=== PATIENT | female | born 1940 | race Caucasian/White ===

== ENCOUNTER → 2020-10-05 10:11 | Outpatient (BNVA) | payer MEDICARE, MEDICAID, SELFPAY | PROVIDERS: Family Provider Nurse Practitioner; PCP Nurse Practitioner; Visit Provider Nurse Practitioner | DX: R32 Unspecified urinary incontinence (principal) | CPT/HCPCS: 81003 ==

== ENCOUNTER → 2020-11-20 13:36 | Outpatient (BNVA) | payer MEDICARE, MEDICAID, SELFPAY | PROVIDERS: Family Provider Nurse Practitioner; PCP Nurse Practitioner; Visit Provider Nurse Practitioner | DX: I10 Essential (primary) hypertension (principal) | CPT/HCPCS: 80053; 80061; 84443 ==

== ENCOUNTER → 2021-01-02 09:57 | Outpatient (BNVA) | payer MEDICARE, MEDICAID, SELFPAY | PROVIDERS: Family Provider Nurse Practitioner; PCP Nurse Practitioner; Visit Provider Nurse Practitioner | DX: M17.11 Unilateral primary osteoarthritis, right knee (principal); G89.29 Other chronic pain | CPT/HCPCS: 73562; 73610 ==

== ENCOUNTER → 2021-06-12 10:49 | Outpatient (BNVA) | payer MEDICARE, MEDICAID, SELFPAY | PROVIDERS: Family Provider Nurse Practitioner; PCP Nurse Practitioner; Visit Provider Nurse Practitioner | DX: I10 Essential (primary) hypertension (principal); R73.9 Hyperglycemia, unspecified; J44.9 Chronic obstructive pulmonary disease, unspecified | CPT/HCPCS: 80053; 80061; 83036 ==

== ENCOUNTER → 2021-07-10 12:55 | Outpatient (BNVA) | payer MEDICARE, MEDICAID, SELFPAY | PROVIDERS: Family Provider Nurse Practitioner; PCP Nurse Practitioner; Visit Provider Nurse Practitioner | DX: G40.209 Localization-related (focal) (partial) symptomatic epilepsy and epileptic syndromes with complex partial seizures, not intractable, without status epilepticus (principal); E61.1 Iron deficiency; I10 Essential (primary) hypertension | CPT/HCPCS: 80053; 80156; 80201; 80299; 83540; 84443; 85025 ==

== ENCOUNTER 2021-10-01 13:28 | Outpatient (CLI) | payer MEDICARE, MEDICAID, SELFPAY ==
[2021-10-01 13:57] VITALS: BP 105/76; PULSE 60; RESP 19; TEMP 36.2; O2SAT 97
[2021-10-01 14:01] VITALS: BMI 36.6
[2021-10-01 14:17] VITALS: BP 100/62; PULSE 94; RESP 20; TEMP 36; O2SAT 94
[2021-10-01 15:18] VITALS: BP 112/60; PULSE 70; RESP 20; TEMP 35.8; O2SAT 99
== END 2021-10-01 13:29 | disposition home or self-care (01) ==
LOC: OPS 13:31
PROVIDERS: Family Provider Nurse Practitioner; PCP Nurse Practitioner; Visit Provider Nurse Practitioner
DX: U07.1 COVID-19 (principal)
CPT/HCPCS: 96365

== ENCOUNTER → 2022-02-05 12:05 | Outpatient (BNVA) | payer MEDICARE, MEDICAID, SELFPAY | PROVIDERS: Family Provider Nurse Practitioner; PCP Nurse Practitioner; Visit Provider Nurse Practitioner | DX: I10 Essential (primary) hypertension (principal); E61.1 Iron deficiency | CPT/HCPCS: 80053; 80061; 83540; 84443 ==

== ENCOUNTER → 2022-07-09 10:55 | Outpatient (BNVA) | payer MEDICARE, MEDICAID, SELFPAY | PROVIDERS: Family Provider Nurse Practitioner; PCP Nurse Practitioner; Visit Provider Nurse Practitioner | DX: G40.209 Localization-related (focal) (partial) symptomatic epilepsy and epileptic syndromes with complex partial seizures, not intractable, without status epilepticus (principal); I10 Essential (primary) hypertension | CPT/HCPCS: 80156 ==

== ENCOUNTER → 2023-01-21 08:52 | Outpatient (BNVA) | payer MEDICARE, MEDICAID, SELFPAY | PROVIDERS: Family Provider Nurse Practitioner; PCP Nurse Practitioner; Visit Provider Nurse Practitioner | DX: I10 Essential (primary) hypertension (principal); E55.9 Vitamin D deficiency, unspecified; G40.209 Localization-related (focal) (partial) symptomatic epilepsy and epileptic syndromes with complex partial seizures, not intractable, without status epilepticus | CPT/HCPCS: 80053; 80061; 80299; 82306; 82607; 84443 ==

== ENCOUNTER 2023-05-04 19:13 | Inpatient (IN) | payer MEDICARE, MEDICAID, SELFPAY ==
--- NOTE | 2023-05-04 19:17 | ED_ITS ---
HPI - Fall General: Chief Complaint: Fall Stated Complaint: FALL Time Seen by Provider: 05/04/23 19:15 History of Present Illness: 83-year-old female comes in today with injury to the right hip and knee. Patient reports about 2:00 this afternoon she was in the shower with staff at [facility] when she slipped and fell coming down on her right knee. Since then patient has had pain and discomfort mainly to the right knee. Patient is able to manipulate leg off the floor. Patient does have bilateral lower extremity swelling. Patient appears nontoxic. Patient appears in mild pain at rest. Pain is exacerbated with movement of the right lower extremity. Associated symptoms-after fall: Denies chest pain Review of Systems General: Reports: 10 or more systems reviewed and unremarkable except in HPI and below Const: Denies: fever(s) Card: Denies: chest pain Resp: Denies: dyspnea Musc: Reports: extremity pain Skin/Breast: Denies: rash PFSH ED PFSH: Medical History (Updated 05/04/23 @ 20:20 by FELIBERTO Small) Chronic constipation Complex partial epilepsy COPD mixed type COVID-19 DJD (degenerative joint disease) DNR no code (do not resuscitate) Dyslipidemia Essential (primary) hypertension GERD (gastroesophageal reflux disease) Lives in assisted living facility Low serum iron Obesity, morbid, BMI 40.0-49.9 Osteoporosis Urinary incontinence in female Vitamin D deficiency Surgical History History of total hysterectomy Family History Mother Diabetes Heart disease Family/Other Diabetes Aunt Father Heart disease Social History Smoking and tobacco status: never smoked Second hand smoke exposure: No Substance/Drug Use: never Lives independently: No Housing: Assisted Living Facility Marital status: Current occupational status: retired Physical Exam Const: COMMON NORMALS: patient oriented x3 HENMT: COMMON NORMALS: atraumatic HEAD & SCALP: atraumatic Neck/C-Spine: COMMON NORMALS: full ROM CERVICAL SPINE: No Cervical spine tenderness Chest: COMMONS NORMALS: normal palpation of entire chest wall Resp: COMMON NORMALS: normal respiratory effort Cardio: COMMON NORMALS: regular rate and regular rhythm RATE: regular rate RHYTHM: regular rhythm GI: COMMON NORMALS: non-tender Back/Pelvis: COMMON NORMALS: thoracic and lumbar spine normal to inspection Extremity: RIGHT LOWER EXTREMITY: Yes knee joint (Anterior tenderness, decreased range of motion due to pain) Neuro: COMMON NORMALS: patient oriented x3 Skin: COMMON NORMALS: turgor normal GENERAL SKIN EXAM: turgor normal Course ED course: 2014, reviewed case with Dr. Sidhu, orthopedist on-call. He recommend admission to hospitalist with plan to stabilize distal femur fracture in the morning. Hospitalist will be consulted for management of chronic care. MDM - Fall Medical Decision Making 83-year-old female comes in today with injury to the right lower extremity. On exam patient has tenderness to the anterior knee, no bruising and minimal red ness. Distal pulses are intact. Patient has swelling to bilateral lower extremities. Differential diagnosis includes but not limited to fracture, contusion, sprain. X-ray of the hip noted no fractures, x-ray of the knee noted a distal femur fracture that was nondisplaced. Femur x-ray then confirmed the distal femur without any further displacement. Reviewed this with Dr. Emmanuel Sidhu, orthopedist on-call, who agreed to admit patient for repair in the morning recommending hospitalist services for management of chronic disease. Discussed with Dr. Clark, attending ER physician he agreed with plan. Dr. Tai, hospitalist was consulted and agreed to admit patient for further evaluation and treatment. 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
--- NOTE | 2023-05-04 19:22 | XRR_ITS ---
PROCEDURE INFORMATION: Exam: XR Right Hip Exam date and time: 05/04/2023 7:37 PM Age: 83 years old Clinical indication: Injury or trauma; Fall; Blunt trauma (contusions or hematomas); Right; Hip and pelvic region; Additional info: Fall injury, include pelvis TECHNIQUE: Imaging protocol: Radiologic exam of the right hip. Views: 1 view hip with pelvis when performed. COMPARISON: CR XR hip RT 2-3V wo/w pel* [id number] 07/19/2016 11:02 AM FINDINGS: Bones/joints: Mild osteoarthritis of the hips bilaterally. Right inferior pubic ramus probable healed fracture, CT could further evaluate this if there is concern for an acute refracture. Soft tissues: Unremarkable. XR/XR hip RT 2-3V wo/w pel* [id number] IMPRESSION: 1. Right inferior pubic ramus probable healed fracture, CT could further evaluate this if there is concern for an acute refracture. 2. Mild osteoarthritis of the hips bilaterally.
--- NOTE | 2023-05-04 19:22 | XRR_ITS ---
PROCEDURE INFORMATION: Exam: XR Right Knee Exam date and time: 05/04/2023 7:42 PM Age: 83 years old Clinical indication: Injury or trauma; Fall; Blunt trauma; Knee; Right; Additional info: Fall injury TECHNIQUE: Imaging protocol: Radiologic exam of the right knee. Views: 3 views. COMPARISON: CR XR femur RT min 2V* [id number] 07/19/2016 11:02 AM FINDINGS: Bones/joints: Distal femoral metadiaphyseal oblique nondisplaced fracture. Severe tricompartmental osteoarthritis of the knee. Soft tissues: Normal. XR/XR knee RT 3V* [id number] IMPRESSION: 1. Distal femoral metadiaphyseal oblique nondisplaced fracture. 2. Severe tricompartmental osteoarthritis of the knee.
[2023-05-04 19:39] VITALS: BMI 36.3
[2023-05-04] MEDS: HYDROcodone-acetaminophen 5-325 mg Tablet 1 TAB PO (19:45)
--- NOTE | 2023-05-04 19:50 | XRR_ITS ---
PROCEDURE INFORMATION: Exam: XR Right Femur Exam date and time: 05/04/2023 7:52 PM Age: 83 years old Clinical indication: Injury or trauma; Fall; Blunt trauma; Thigh or upper leg; Right; Additional info: Abnormal image TECHNIQUE: Imaging protocol: Radiologic exam of the right femur. Views: 2 views. COMPARISON: CR XR femur RT min 2V* [id number] 07/19/2016 11:02 AM FINDINGS: Bones/joints: Distal femoral metadiaphyseal oblique fracture with minimal displacement. Soft tissues: Unremarkable. XR/XR femur RT min 2V* [id number] IMPRESSION: Distal femoral metadiaphyseal oblique fracture with minimal displacement.
--- NOTE | 2023-05-04 19:57 | CTR_ITS ---
PROCEDURE INFORMATION: Exam: CT Right Lower Extremity Without Contrast, Knee Exam date and time: 05/04/2023 8:48 PM Age: 83 years old Clinical indication: Injury or trauma; Fall; Fracture, traumatic; Other: Spiral; Patella or knee; Right; Additional info: Distal femur fracture TECHNIQUE: Imaging protocol: CT of the right lower extremity without contrast was performed. Exam focused on the knee. Radiation optimization: All CT scans at this facility use at least one of these dose optimization techniques: automated exposure control; mA and/or kV adjustment per patient size (includes targeted exams where dose is matched to clinical indication); or iterative reconstruction. REPORTING DATA: Count of CT and Cardiac NM exams in prior 12 months: This patient has received 0 known CTs and 0 known cardiac nuclear medicine studies in the 12 months prior to the current study. COMPARISON: CR (LOW EXM, ) 05/04/2023 7:42 PM RADIATION DOSE METRICS: Total DLP (mGy-cm): 463.28 FINDINGS: Bones/joints: There is diffuse osteopenia. There is an oblique fracture through the distal femur without significant displacement. There is advanced osteoarthritis of the knee consisting of joint space narrowing and tricompartment osteophytosis. There is old fracture through the proximal fibula. There is a small suprapatellar effusion. Soft tissues: Normal. CT/CT knee RT wo con* [id number] IMPRESSION: 1. Oblique fracture through the distal femur without significant displacement. 2. Advanced osteoarthritis of the right knee.
--- NOTE | 2023-05-04 20:01 | XRR_ITS ---
PROCEDURE INFORMATION: Exam: XR Chest Exam date and time: 05/04/2023 8:13 PM Age: 83 years old Clinical indication: Injury or trauma; Fall; Blunt trauma (contusions or hematomas); Additional info: Fall, femur fracture TECHNIQUE: Imaging protocol: Radiologic exam of the chest. Views: 1 view. COMPARISON: CR XR chest 1V [id number] 05/10/2019 7:26 AM FINDINGS: Lungs: Unremarkable. No consolidation. Pleural spaces: Unremarkable. No pleural effusion. No pneumothorax. Heart/Mediastinum: Cardiomegaly. Bones/joints: Severe right glenohumeral joint osteoarthritis. XR/XR chest 1V portable [id number] IMPRESSION: 1. Cardiomegaly. 2. Severe right glenohumeral joint osteoarthritis.
--- NOTE | 2023-05-04 20:15 | P.CONIM_ITS ---
Providers/Reason For Consult Consulting Physician/Specialty*: Emmanuel Sidhu DO/orthopedic surgery Reason for Consult*: Right distal femur fracture Requesting Physician: Dr. Sanchez Clark Attending Physician: Ron Nguyen MD Primary Care Provider: JOSE FRANCISCO Ghosh History of Present Illness History of Present Illness Tennille James is a 83 year old female with past medical history of seizures, constipation, COPD, dyslipidemia, hypertension, GERD presented to the hospital today for complaint of a fall.? He states she has osteoarthritis of her knee and a lot of the time her knee gives out and she ends up falling.? Her last fall prior to this was 3 weeks ago and it was also mechanical in nature.? Today she says she fell in the shower.? It was a combination of soapy water under her feet and also her losing her balance due to her knee giving out.? She states that she has a walker with a seat that she uses and lives in senior assisted living facility.? In addition to the above she also has bilateral lower extremity swelling which she says is chronic for her.? She complains of mild pain at this time and is comfortable for the most part.? She does complain of pain upon movement of right lower extremity. Complains of pain mostly around the knee.? No significant clinical deformity noted. denies chest pain, shortness of breath, lightheadedness, dizziness or any other preceding symptoms like nausea or v omiting prior to the fall.? Dr. Alonso is her neurologist.? Patient denies being on any blood thinners. Orthopedics consulted and seen evaluated in the ER patient does have a distal femur fracture on right side and will be going to OR in a.m. she will be n.p.o. at midnight. Patient has a niece that her is her family that was contacted and discussed her current care. She at baseline does ambulate with a walker at the assisted living facility she does sit a lot during the day but she does ambulate with a walker. Review of Systems General: Reports: 10 or more systems reviewed and unremarkable except in HPI and below Medications/Allergies Home Medications Medication Instructions Recorded Confirmed Last Taken Type acetaminophen 160 mg chewable 160 mg PO Q4H PRN Pain 12/28/19 05/05/23 Unknown History tablet albuterol sulfate 90 mcg/actuation 1 inh inhalation Q4H PRN Shortness 12/28/19 05/05/23 Unknown History aerosol inhaler (Ventolin HFA) Of Breath amlodipine 5 mg tablet 5 mg PO DAILY 12/28/19 05/05/23 05/04/23 History aspirin 81 mg chewable tablet 81 mg PO DAILY 12/28/19 05/05/23 05/04/23 History (Ranjeet Chewable Low Dose Aspirin) bisacodyl 10 mg rectal suppository 10 mg DE DAILY PRN Constipation 12/28/19 05/05/23 Unknown History carbamazepine 200 mg tablet 200 mg PO BID 12/28/19 05/05/23 05/04/23 History chlorhexidine gluconate 0.12 % 15 ml buccal BID 12/28/19 05/05/23 05/04/23 History mouthwash dextromethorphan-guaifenesin 10 5 ml PO Q4H PRN Cough 12/28/19 05/05/23 Unknown History mg-100 mg/5 mL oral liquid (Diabetic Tussin DM) diphenhydramine HCl 25 mg capsule 25 mg PO Q6H PRN Allergy Symptoms 12/28/19 05/05/23 Unknown History (Allergy (diphenhydramine)) docusate sodium 100 mg capsule 100 mg PO BID 12/28/19 05/05/23 05/04/23 History (DOK) epinephrine 0.3 mg/0.3 mL 0.3 ml IM ONCE PRN Allergic 12/28/19 05/05/23 Unknown History injection, auto-injector (EpiPen Reaction 2-Ortega) esomeprazole magnesium 40 mg 40 mg PO DAILY 12/28/19 05/05/23 05/04/23 History capsule,delayed release ferrous sulfate 325 mg (65 mg 325 mg PO DAILY 12/28/19 05/05/23 05/04/23 History iron) tablet furosemide 20 mg tablet 20 mg PO BID 12/28/19 05/05/23 05/04/23 History losartan 50 mg tablet 50 mg PO DAILY 12/28/19 05/05/23 05/04/23 History lovastatin 20 mg tablet 20 mg PO DAILY 12/28/19 05/05/23 05/04/23 History metoprolol tartrate 50 mg tablet 50 mg PO BID 12/28/19 05/05/23 05/04/23 History multivitamin,wx-vhrd-wdyerrhn 27 1 tab PO DAILY 12/28/19 05/05/23 Unknown History mg-0.4 mg tablet (Therems-M) nitroglycerin 0.4 mg sublingual 0.4 mg sublingual Q5M PRN Chest 12/28/19 05/05/23 Unknown History tablet (Nitrostat) Pain ondansetron HCl 4 mg tablet 4 mg PO Q4H PRN Nausea 12/28/19 05/05/23 Unknown History potassium chloride 10 mEq 10 meq PO BID 12/28/19 05/05/23 05/04/23 History capsule,extended release risperidone 0.25 mg tablet 0.25 mg PO BID 12/28/19 05/05/23 05/04/23 History sennosides 8.6 mg capsule (senna) 8.6 mg PO BID 12/28/19 05/05/23 05/04/23 History topiramate 50 mg tablet 50 mg PO BID 12/28/19 05/05/23 05/05/23 History clonazepam 0.5 mg tablet (Klonopin) 0.5 mg PO BID PRN when seizure 04/01/21 05/05/23 Unknown Rx pending #10 tabs trazodone 50 mg tablet 50 mg PO .at bedtime #30 tabs 04/01/21 05/05/23 1 Day Ago Rx ~05/04/23 DME: Jaylon #1 ea 09/21/22 05/05/23 Unknown Rx lacosamide 200 mg tablet (Vimpat) 200 mg PO BID #60 tabs 01/25/23 05/05/23 05/04/23 Rx calcium carbonate 500 mg-vitamin 1 tab PO DAILY 05/04/23 05/05/23 05/04/23 History D3 5 mcg (200 unit) tablet (Oysco 500/D) arformoterol 15 mcg/2 mL solution 2 ml inhalation QAM 05/05/23 05/05/23 Unknown History for nebulization (Brovana) camphor 4.7 %-eucalyptus oil 1.2 1 applic topical BID PRN Cough 05/05/23 05/05/23 Unknown History %-menthol 2.6 % topical ointment (Vicks Vaporub) ipratropium 0.5 mg-albuterol 3 mg 3 ml inhalation Q6H PRN Shortness 05/05/23 05/05/23 Unknown History (2.5 mg base)/3 mL nebulization Of Breath soln nystatin 100,000 unit/gram topical 1 applic topical BID 05/05/23 05/05/23 Unknown History powder (Nyamyc) sennosides 8.6 mg tablet (senna) 8.6 mg PO BEDTIME PRN Constipation 05/05/23 05/05/23 Unknown History Allergies Allergy/AdvReac Type Severity Reaction Status Date / Time lisinopril Allergy ALGY-Anaphy Verified 05/04/23 23:55 laxis Current Medications Generic Name Dose Route Start Last Admin Trade Name Freq PRN Reason Stop Dose Admin Carbamazepine 200 mg 05/05/23 01:30 05/05/23 08:47 Carbamazepine 200 Mg Tablet PO 200 mg BID ANT Administration Erythromycin 1 applic 05/05/23 13:37 05/05/23 13:52 Erythromycin Op Oint 1 Gm EYE-BOTH 1 applic QID ANT Administration Protocol Sodium Chloride 1,000 mls @ 75 mls/hr 05/04/23 21:45 05/05/23 12:02 Sodium Chloride 0.9% IV 75 mls/hr .[id number] ANT Administration Lacosamide 200 mg 05/05/23 01:15 05/05/23 08:46 Lacosamide 50 Mg Tablet PO 200 mg BID ANT Administration Metoprolol Tartrate 50 mg 05/05/23 01:30 05/05/23 08:47 Metoprolol Tartrate 50 Mg Tablet PO 50 mg BID ANT Administration Morphine Sulfate 2 mg 05/04/23 21:36 05/05/23 13:09 Morphine 4 Mg/Ml Sdv 1 Ml IVP 2 mg Q4H PRN Administration SEVERE PAIN Pantoprazole Sodium 40 mg 05/04/23 21:45 05/04/23 22:26 Pantoprazole 40 Mg Sdv IVP 40 mg Q24H ANT Administration Risperidone 0.25 mg 05/05/23 01:30 05/05/23 08:47 Risperidone 0.25 Mg Tablet PO 0.25 mg BID ANT Administration Senna 8.6 mg 05/05/23 09:00 05/05/23 08:47 Sennosides 8.6 Mg Tablet PO 8.6 mg BID ANT Administration Topiramate 50 mg 05/05/23 01:24 05/05/23 08:47 Topiramate 25 Mg Tablet PO 50 mg BID ANT Administration Trazodone HCl 50 mg 05/05/23 01:15 05/05/23 01:30 Trazodone 50 Mg Tablet PO 50 mg BEDTIME ANT Administration PFSH Acute PFSH: Medical History (Updated 05/05/23 @ 18:10 by Ron Nguyen MD) Chronic constipation Complex partial epilepsy COPD mixed type COVID-19 DJD (degenerative joint disease) DNR no code (do not resuscitate) Dyslipidemia Essential (primary) hypertension GERD (gastroesophageal reflux disease) Lives in assisted living facility Low serum iron Obesity, morbid, BMI 40.0-49.9 Osteoporosis Urinary incontinence in female Vitamin D deficiency Surgical History History of total hysterectomy Family History Mother Diabetes Heart disease Family/Other Diabetes Aunt Father Heart disease Social History Smoking and tobacco status: never smoked Second hand smoke exposure: No Substance/Drug Use: never Lives independently: No Housing: Assisted Living Facility Marital status: Current occupational status: retired Vitals/I&O/Wt Last Vital Signs Temp 97.5 F L 05/05/23 12:00 Pulse 63 05/05/23 14:00 Resp 18 05/05/23 13:13 BP 138/69 05/05/23 13:13 Pulse Ox 96 05/05/23 13:13 O2 Del Method Room Air 05/05/23 12:00 05/05/23 05/05/23 05/05/23 06:59 14:59 22:59 Intake Total 1000 / 1000 Output Total 500 / 500 Balance -500 / -500 1000 / 1000 Weight last 48 hrs Weight 212 lb Physical Exam Narrative: Orthopedic specific examination: Patient has no significant clinical deformity appreciated. She has significant tenderness palpation over the distal femur on the right lower extremity. Right lower extremity has mild swelling and ecchymosis at fracture site. No palpable joint effusion noted. Patient has no tenderness to palpation of the right hip and no pain with logroll of the right hip joint. Patient has negative hip compression test. No pain with logroll and negative Stinchfield's of the left lower extremity. Bilateral lower extremities have 3+ pitting edema. She is able to wiggle toes plantarflex and dorsiflex ankle bilaterally. She does have distal pulses palpable and sensations intact to light touch distally to the bilateral lower extremities. No pain or tenderness to palpation of the bilateral upper extremity shoulders, elbows, wrists and hands. Gross motor and sensory intact of bilateral upper extremities. General: Alert oriented x3, patient seen laying in bed appearing comfortable at this time. Pain to right leg HEENT: Normocephalic, atraumatic, Cardio: Distal pulses palpable Respiratory: No retractions, normal respiratory effort Behavior: Appropriate and cooperative Extremities: 3+ edema bilateral lower extremity up to the thighs Urinary Catheter Management: [place]: Cath Placed During This Visit: yes Reason for Continuing Indwelling Catheter: Perioperative Use in Selected Surgeries Urinary Catheter Date of Insertion: 05/04/23 Urinary Catheter Time of Insertion: 22:39 Data 05/05/23 05:11 05/05/23 05:11 Xray Ortho: My impression: X-rays of the right femur reviewed and personally interpreted by myself patient has a nondisplaced spiral fracture of the distal femur. Does not appear to have any intra-articular involvement. Overall good alignment noted with minimal displacement. Patient does have noticeable degenerative joint disease of the r ight knee. CT scan of the right knee reviewed and demonstrates no intra- articular involvement and appropriate distal femur bone stock for retrograde nail fixation. A&P Assessment and plan (1) Femoral distal fracture: Qualifiers: Encounter type: initial encounter Fracture morphology: other fracture Fracture type: closed Laterality: right Qualified Code(s): S72.491A - Other fracture of lower end of right femur, initial encounter for closed fracture Plan N.p.o. at midnight may have a diet this evening Nonweightbearing right lower extremity Placed in knee immobilizer/splint Elevation ice as needed for pain and swelling Pain control Internal medicine admitting and as primary CT scan for evaluation fracture pattern to rule out articular involvement MDM: Tennille is a pleasant 83-year-old female who sustained a fall getting out of the shower. She lives in an assisted living facility. Her niece is her closest relative. Had a detailed discussion with the patient who is alert oriented understands her diagnosis and her condition as well as her treatment options and able to consent and make appropriate medical decision making. I did discuss her care as well with her niece. At this point in time she has a minimally displaced right distal femur fracture this is extends from the supracondylar region up into the shaft of the femur. Overall reasonably good alignment but does have some mild displacement and given this is a long bone injury in order to help her get earlier mobilization as well as pain control and encourage knee range of motion would recommend surgical intervention of a right distal femur retrograde femoral nail. We talked about this in detail we talked about intramedullary nail versus lateral screw and plate fixation her CT scan shows no intra-articular involvement as well as an appropriate bone stock distally with amendable fixation for retrograde femoral nail. Once again we talked about her treatment options as far as nonoperative and operative intervention. Her risk of surgery include not limited to make it better make it worse blood clot, heart attack, stroke, on table, infection, malunion, nonunion, injury to nerves vessels or tendons, persistent knee pain. Understanding her risk with surgery she elects to proceed with surgical intervention. All questions been answered at this time. We will proceed with a right distal femur retrograde femoral nail tomorrow. All questions answered. Consult Attestations Medical Necessity Statement: Right distal femur fracture Coding Level of Care Code Acute Code for [facility] Fw Diagnoses Femoral distal fracture S72.491A Encounter type: initial encounter Fracture morphology: other fracture Fracture type: closed Laterality: right Time Spent (min) 50
[2023-05-04 20:39] LABS: Basophils # 0.1 10^3/uL (0.0-0.1); Basophils % 0.4 %; Eosinophils # 0.3 10^3/uL (0.0-0.8); Eosinophils % 1.9 %; Hematocrit 45.1 % (37.0-47.0); Hemoglobin 14.4 g/dL (11.5-15.3); Lymphocytes # 1.6 10^3/uL (0.8-4.8); Lymphocytes % 11.5 %; Mean Corpuscular HGB Conc 31.9 g/dL (30.0-36.0); Mean Corpuscular Hemoglobin 30.4 pg (28.0-34.0); Mean Corpuscular Volume 95.3 fl (81-99); Mean Platelet Volume 9.1 fL (7.4-10.4); Monocytes # 1.2 10^3/uL (0.2-0.9); Monocytes % 8.8 %; Neutrophils # 10.52 10^3/uL (1.8-7.7); Neutrophils % 76.8 %; Nucleated Red Blood Cells % 0 %; Platelet Count 258 10^3/cmm (130-400); Red Blood Count 4.73 10^6/uL (4.1-5.3); White Blood Count 13.7 10^3/uL (4.0-10.0)
--- NOTE | 2023-05-04 20:41 | ECG_ITS ---
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 Measurements Intervals [place] Rate: 64 P: 18 OR: 165 QRS: 9 QRSD: 93 T: 38 QT: 434 QTc: 450 Interpretive Statements SINUS RHYTHM Compared to ECG 05/10/2019 12:19:16 No significant changes Electronically Signed On 05-05-2023 5:48:58 CDT by Lesly Soliman M.D. [email or web address]
[2023-05-04 20:44] VITALS: BP 118/80; PULSE 75; RESP 18; O2SAT 97
[2023-05-04 20:47] LABS: Alanine Aminotransferase 15 U/L (0-33); Albumin Level 3.8 g/dL (3.5-5.2); Alkaline Phosphatase 157 U/L (35-105); Anion Gap 15.8 (5-19); Aspartate Amino Transferase 16 U/L (0-32); Blood Urea Nitrogen 19 mg/dL (8-23); Carbon Dioxide 22 mmol/L (22-29); Chloride 107 mmol/L (98-107); Globulin 3.4 g/dL (1.3-4.6); Glucose 114 mg/dL (65-115); Osmolality Calculated 295 mOsm/kg (285-295); Potassium 3.8 mmol/L (3.5-5.1); Sodium 141 mmol/L (136-145); Total Bilirubin 0.2 mg/dL (0.15-1.2); Total Protein 7.2 g/dL (6.6-8.7)
--- NOTE | 2023-05-04 21:02 | PC.NURSE ---
Report called to Jennifer SORIANO. Room is not clean, per Jennifer SORIANO, she will call once room is clean and ready for patient transfer.
--- NOTE | 2023-05-04 21:36 | PM.HP ---
Providers/Chief Complaint Admitting Physician: Maryan Ba MD Primary Care Provider: Annita Farah, LEARNING CONSULTANT-C Chief Complaint: FALL History of Present Illness Tennille James is a 83 year old female with past medical history of seizures, constipation, COPD, dyslipidemia, hypertension, GERD presented to the hospital today for complaint of a fall. He states she has osteoarthritis of her knee and a lot of the time her knee gives out and she ends up falling. Her last fall prior to this was 3 weeks ago and it was also mechanical in nature. Today she says she fell in the shower. It was a combination of soapy water under her feet and also her losing her balance due to her knee giving out. She states that she has a walker with a seat that she uses and lives in senior assisted living facility. In addition to the above she also has bilateral lower extremity swelling which she says is chronic for her. She complains of mild pain at this time and is comfortable for the most part. She does complain of pain upon movement of right lower extremity. Denies chest pain, shortness of breath, lightheadedness, dizziness or any other preceding symptoms like nausea or vomiting prior to the fall. Dr. Alonso is her neurologist. Patient is unable to recall her home medications and would like us to call the facility to obtain the list. EKG did not show any acute ischemic changes. It showed sinus rhythm. Orthopedic surgery was contacted from ER. Patient does have a distal femur fracture on right side and will be going to OR in a.m. she will be n.p.o. at midnight. Patient states that she would like to be a DNR/DNI and understands that she will pass away if no intervention is undertaken. WBC 13.7, rest of labs mainly unremarkable. Medications/Allergies Home Medications Medication Instructions Recorded Confirmed Last Taken Type Lactobacillus 1 cap PO BID 12/28/19 04/01/23 Unknown History acidophilus-Bifidobac.animalis 10 billion cell capsule (Digestive Probiotic) acetaminophen 160 mg chewable 640 mg PO Q4H PRN 12/28/19 04/01/23 Unknown History tablet acidophilus 100 million 1 cap PO BID 12/28/19 05/04/23 05/04/23 History cell-pectin, citrus 10 mg capsule (Acidophilus Probiotic) albuterol sulfate 90 mcg/actuation 1 inh inhalation Q4H PRN 12/28/19 04/01/23 Unknown History aerosol inhaler (Ventolin HFA) amlodipine 5 mg tablet 5 mg PO QDAY 12/28/19 05/04/23 05/04/23 History aspirin 81 mg chewable tablet 81 mg PO QDAY 12/28/19 05/04/23 05/04/23 History (Ranjeet Chewable Low Dose Aspirin) bisacodyl 10 mg rectal suppository 10 mg [place] QDAY PRN 12/28/19 04/01/23 Unknown History calcium carbonate 500 mg calcium 500 mg PO QDAY 12/28/19 04/01/23 Unknown History (1,250 mg) tablet (Oyster Shell Calcium) carbamazepine 200 mg tablet 200 mg PO BID 12/28/19 05/04/23 05/04/23 History chlorhexidine gluconate 0.12 % 15 ml buccal BID 12/28/19 05/04/23 05/04/23 History mouthwash dextromethorphan-guaifenesin 10 5 ml PO Q4H PRN 12/28/19 04/01/23 Unknown History mg-100 mg/5 mL oral liquid (Diabetic Tussin DM) diphenhydramine HCl 25 mg capsule 25 mg PO Q6H PRN 12/28/19 04/01/23 Unknown History (Allergy (diphenhydramine)) docusate sodium 100 mg capsule 100 mg PO BID 12/28/19 05/04/23 05/04/23 History (DOK) epinephrine 0.3 mg/0.3 mL 0.3 ml IM ONCE 12/28/19 04/01/23 Unknown History injection, auto-injector (EpiPen 2-Ortega) esomeprazole magnesium 40 mg 40 mg PO QDAY 12/28/19 05/04/23 05/04/23 History capsule,delayed release ferrous sulfate 325 mg (65 mg 325 mg PO QDAY 12/28/19 05/04/23 05/04/23 History iron) tablet furosemide 20 mg tablet 20 mg PO BID 12/28/19 05/04/23 05/04/23 History losartan 50 mg tablet 50 mg PO QDAY 12/28/19 05/04/23 05/04/23 History lovastatin 20 mg tablet 20 mg PO QDAY 12/28/19 05/04/23 05/04/23 History metoprolol tartrate 50 mg tablet 50 mg PO BID 12/28/19 05/04/23 05/04/23 History multivitamin,ge-mmsp-hiewquxl 27 1 tab PO QDAY 12/28/19 04/01/23 Unknown History mg-0.4 mg tablet (Therems-M) nitroglycerin 0.4 mg sublingual 0.4 mg sublingual Q5M PRN 12/28/19 04/01/23 Unknown History tablet (Nitrostat) ondansetron HCl 4 mg tablet 4 mg PO Q4H PRN 12/28/19 04/01/23 Unknown History potassium chloride 10 mEq 10 meq PO BID 12/28/19 05/04/23 05/04/23 History capsule,extended release risperidone 0.25 mg tablet 0.25 mg PO BID 12/28/19 05/04/23 05/04/23 History sennosides 8.6 mg capsule (senna) 8.6 mg PO BID 12/28/19 05/04/23 05/04/23 History topiramate 50 mg tablet 50 mg PO BID 12/28/19 05/05/23 05/05/23 History clonazepam 0.5 mg tablet (Klonopin) 0.5 mg PO BID PRN when seizure 04/01/21 05/05/23 Unknown Rx pending #10 tabs trazodone 50 mg tablet 50 mg PO .at bedtime #30 tabs 04/01/21 05/05/23 1 Day Ago Rx ~05/04/23 camphor-eucalyptus oil-menthol 4.8 1 applic topical BID PRN throat 09/11/21 04/01/23 Unknown Rx %-1.2 %-2.6 % topical ointment pain or cough #50 grams (Upstream Vaporub) DME: Walker #1 ea 09/21/22 04/01/23 Unknown Rx lacosamide 200 mg tablet (Vimpat) 200 mg PO BID #60 tabs 01/25/23 05/04/23 05/04/23 Rx calcium carbonate 500 mg-vitamin 1 tab PO DAILY 05/04/23 05/04/23 05/04/23 History D3 5 mcg (200 unit) tablet (Oysco 500/D) Allergies Allergy/AdvReac Type Severity Reaction Status Date / Time lisinopril Allergy ALGY-Anaphy Verified 05/04/23 23:55 laxis PFSH Acute PFSH: Medical History (Updated 05/04/23 @ 20:20 by FELIBERTO Small) Chronic constipation Complex partial epilepsy COPD mixed type COVID-19 DJD (degenerative joint disease) DNR no code (do not resuscitate) Dyslipidemia Essential (primary) hypertension GERD (gastroesophageal reflux disease) Lives in assisted living facility Low serum iron Obesity, morbid, BMI 40.0-49.9 Osteoporosis Urinary incontinence in female Vitamin D deficiency Surgical History History of total hysterectomy Family History Mother Diabetes Heart disease Family/Other Diabetes Aunt Father Heart disease Social History Smoking and tobacco status: never smoked Second hand smoke exposure: No Substance/Drug Use: never Lives independently: No Housing: Assisted Living Facility Marital status: Current occupational status: retired Vitals/I&O/Wt Last Vital Signs Pulse 75 05/04/23 20:44 Resp 18 05/04/23 20:44 BP 118/80 05/04/23 20:44 Pulse Ox 97 05/04/23 20:44 O2 Del Method Room Air 05/04/23 20:44 Weight last 48 hrs Weight 96.162 kg Physical Exam Narrative: General: Alert oriented x3, patient seen laying in bed appearing comfortable at this time. Complains of pain when she moves her right leg otherwise is comfortable. HEENT: Normocephalic, atraumatic, EOMI, breathing room air right eye does have scleral redness and mild swelling around the eyelid at this time. No signs of periorbital cellulitis. No discharge noted. Cardio: Regular rate rhythm, normal S1-S2 Respiratory: Clear to auscultation bilaterally no wheezes no rhonchi at this time GI: Abdomen soft, nontender, bowel sounds + Behavior: Appropriate and cooperative Extremities: 3+ edema bilateral lower extremity up to the thighs, right leg shortened and externally rotated. Data 05/04/23 20:20 05/04/23 20:20 A&P Assessment and plan (1) Femoral distal fracture: Qualifiers: Encounter type: initial encounter Fracture morphology: other fracture Fracture type: closed Laterality: right Qualified Code(s): S72.491A - Other fracture of lower end of right femur, initial encounter for closed fracture (2) DJD (degenerative joint disease): (3) Low serum iron: (4) DNR no code (do not resuscitate): (5) Obesity, morbid, BMI 40.0-49.9: (6) Lives in assisted living facility: (7) Essential (primary) hypertension: (8) COPD mixed type: (9) Complex partial epilepsy: Plan #Right femur fracture #Status post mechanical fall, slipped in shower #History of seizures #Hypertension #Iron deficiency anemia #COPD -PT OT after surgery ? Check topiramate level, lacosamide level, carbamazepine level ? Continue seizure medications, metoprolol tartrate ? Hold ARB losartan 50 since patient undergoing anesthesia in a.m. ? Hold Lasix at this time ? Gentle IV hydration 75 cc normal saline per hour ? Continue RN, Protonix ? Hold clonazepam at this time. It is as needed for seizures breakthrough ? Continue aspirin, amlodipine ? It was confirmed from this is living the patient took her morning medications but is missing her evening doses. We will give her one-time doses for the evening ? Placed on cardiac telemetry ? Seizure precautions ? Difficult to examine patient's eye closely due to telehealth camera definition capability. Patient's eye will need to be examined in person in a.m. Consider erythromycin ophthalmic ointment if clinical evidence of conjunctivitis. There is no discharge noted at this time however there is mild scleral redness. ? Cardiomegaly noted on chest x-ray however no evidence of pulmonary edema at this time ? DuoNeb every 4 hours as needed ? Baseline EKG shows sinus rhythm. ? Check CBC BMP magnesium, INR in a.m. DNR/DNI. Discussed this in a lot of detail with the patient with presence of RN in the room. Patient talks about her judaism ab when discussing CODE STATUS. SCDs, heparin SQ twice daily Attestations Medical Necessity Statement*: Greater than 2 midnight stay for management of femur fracture. Coding Level of Care Code G0426 (50 min) Encounter Time (min): 50 Patient seen via Telehealth in the acute care setting (hospital or ED location) by agreement and consent of patient or patient telephone service representative. Telehealth technology used during the visit includes video and audio. This patient encounter is appropriate and reasonable under the circumstances given the patient?s particular presentation at this time. The patient has been advised of the potential risks and limitations of this mode of treatment (including but not limited to the absence of in-person examination at this time) and has agreed to be treated by an off-site physician for this visit. If deemed clinically necessary from this telehealth visit, or if condition or consent for telehealth visit changes, an in-person visit will be arranged. For this encounter, total time for the origination of telehealth care on this date is as shown. Diagnoses Femoral distal fracture S72.491A Encounter type: initial encounter Fracture morphology: other fracture Fracture type: closed Laterality: right DJD (degenerative joint disease) M19.90 Low serum iron E61.1 DNR no code (do not resuscitate) Z66 Obesity, morbid, BMI 40.0-49.9 E66.01 Lives in assisted living facility Z59.3 Essential (primary) hypertension I10 COPD mixed type J44.9 Complex partial epilepsy G40.209
[2023-05-04 22:25] VITALS: BP 184/80; PULSE 80; RESP 17; TEMP 36.6; O2SAT 92
[2023-05-04 22:26] VITALS: RESP 16
[2023-05-04] MEDS: pantoprazole 40 mg SDV IVP (22:26)
[2023-05-04] MEDS: sodium chloride 0.9% 1,000 ML 75 ML IV (22:26)
[2023-05-04] MEDS: morphine 4 mg/mL SDV 1 mL 2 MG IVP (22:26)
[2023-05-04 22:49] LABS: Lactic Sepsis W/Reflex 1.6 mmol/L (0.5-2.2)
[2023-05-04 22:59] LABS: Thyroid Stimulating Hormone 1.62 uIU/mL (0.27-4.20)
--- NOTE | 2023-05-04 23:01 | PC.NURSE ---
No paperwork came from [facility]. Called [facility] to ask for med list to be faxed and the staff member stated I don't know how to do that, we never do that on nights. Asked if someone could fax med list in the morning and staff member stated yes, I will leave a note for them in the morning.
--- NOTE | 2023-05-04 23:15 | PC.NURSE ---
When asking patient if she is allergic to Lisinopril, she states I don't think so. When asking patient if she is allergic to anything, she states no.
[2023-05-04 23:32] VITALS: BP 144/76; PULSE 65; RESP 17; TEMP 36.4; O2SAT 97
[2023-05-05] VITALS (19 sets, daily range): BP systolic 107–149; BP diastolic 56–83; PULSE 46–117; RESP 14–18; TEMP 36.1–36.4; O2SAT 92–99
--- NOTE | 2023-05-05 00:02 | PC.NURSE ---
Addendum entered by Swetha Ly RN 05/05/23 00:04: Staff member states that patient has not taken her evening medications, but did have her morning medications. Dr. Ba notified. Medications and allergies confirmed via telephone with staff member at [facility]. Staff member states that she does not know how to fax the paperwork, but she will have someone fax it in the morning. Original Note: Home medications and allergies confirmed with staff member at [facility].
[2023-05-05] MEDS: risperiDONE 0.25 mg Tablet PO ×3 (01:29→23:47)
[2023-05-05] MEDS: carBAMazepine 200 mg Tablet PO ×3 (01:30→23:47)
[2023-05-05] MEDS: metoprolol tartrate 50 mg Tablet PO ×3 (01:30→23:47)
[2023-05-05] MEDS: topiramate 25 mg Tablet 50 MG PO ×3 (01:30→23:47)
[2023-05-05] MEDS: lacosamide 50 mg Tablet 200 MG PO ×3 (01:30→23:47)
[2023-05-05] MEDS: trazodone 50 mg Tablet PO (01:30)
[2023-05-05 05:24] LABS: Basophils % 0.4 %; Eosinophils # 0.4 10^3/uL (0.0-0.8); Eosinophils % 4.6 %; Hematocrit 42.2 % (37.0-47.0); Hemoglobin 13.1 g/dL (11.5-15.3); Lymphocytes # 1.8 10^3/uL (0.8-4.8); Lymphocytes % 19.4 %; Mean Corpuscular Hemoglobin 30.4 pg (28.0-34.0); Mean Corpuscular Volume 97.9 fl (81-99); Mean Platelet Volume 9.4 fL (7.4-10.4); Monocytes % 10.9 %; Neutrophils # 5.87 10^3/uL (1.8-7.7); Neutrophils % 64.2 %; Nucleated Red Blood Cells % 0 %; Platelet Count 211 10^3/cmm (130-400); Red Blood Count 4.31 10^6/uL (4.1-5.3); Red Cell Distribution Width 13.8 % (12.1-15.1); White Blood Count 9.2 10^3/uL (4.0-10.0)
[2023-05-05 05:49] LABS: Alanine Aminotransferase 22 U/L (0-33); Albumin Level 3.6 g/dL (3.5-5.2); Alkaline Phosphatase 147 U/L (35-105); Anion Gap 14.9 (5-19); Aspartate Amino Transferase 36 U/L (0-32); Blood Urea Nitrogen 16 mg/dL (8-23); Calcium 8.3 mg/dL (8.5-10.5); Carbon Dioxide 24 mmol/L (22-29); Chloride 105 mmol/L (98-107); Globulin 2.5 g/dL (1.3-4.6); Glucose 101 mg/dL (65-115); Magnesium 2.1 mg/dL (1.7-2.3); Osmolality Calculated 291 mOsm/kg (285-295); Potassium 3.9 mmol/L (3.5-5.1); Sodium 140 mmol/L (136-145); Total Bilirubin 0.2 mg/dL (0.15-1.2); Total Protein 6.1 g/dL (6.6-8.7)
[2023-05-05] MEDS: morphine 4 mg/mL SDV 1 mL 2 MG IVP ×2 (07:16→13:09)
[2023-05-05] MEDS: sennosides 8.6 mg Tablet PO (08:47)
--- NOTE | 2023-05-05 10:43 | PC.CHAP ---
Pastoral Care Encounter/Spiritual Assessment Type of Contact [] Declined records assistant visit [] Patient/Family/Request visit [] Outpatient visit [] Follow-up visit [] Physician referral [] Code/Alert [x] Routine visit [] Staff referral [] Actively dying [] Patient sleeping [] Family support [] [] Out of room [] Palliative care [] [] Receiving care in room [] Pre-surgical visit [] Trauma [] Long length of stay [] ICU visit [] Other: Relational/Emotional Strength [x] Patient feels connected with others/family/visitors/staff [] Distress [] Loneliness/isolation [] Abandonment Spirituality of Patient [x] Person of [place] [] Attends Synagogue of their [place] [x] Believes in Prayer [] Reads Bible or Uatsdin materials [] There are Spiritual issues to be addressed Bonding Machine Tender Interventions [x] Prayer [x] Active listening [] Non-anxious presence [x] Spiritual/emotional support [] Crisis/trauma care [] Spiritual counseling [] Bereavement support [] Provided bereavement packet [] Provided Bible/devotional materials [] Provided toy/stuffed animal, coloring book to patient or family member [] Provided Communion [] Anointing/[place] [] Salvation [x] Completed spiritual assessment [] Other: Impact on Illness or Injury [] Angry [] Fearful [] Anxious [] Often cries [] Exhaustion [] Unable to work [] Unable to attend cheondoism [] Unable to walk/stand [] Unable to read [] Unable to drive [] Unable to eat/drink [] Unable to sleep [] Unable to be with family [] Patient intubated [] Other: Summary Time spent with patient 5 min
[2023-05-05] MEDS: sodium chloride 0.9% 1,000 ML 75 ML IV (12:02)
[2023-05-05] MEDS: erythromycin Op Oint 1 gm 1 APPLIC EYE-BOTH (13:52)
--- NOTE | 2023-05-05 14:24 | CT_ITS ---
WS: [id number] CT HEAD TECHNIQUE: Noncontrast CT of the head obtained from the skullbase to the vertex. CLINICAL INFORMATION: fall COMPARISON: CT February 17, 2016 DLP: 988.[address] scans at [facility] use at least one of these dose optimization techniques: automated e xposure control; mA and/or kV adjustment per patient size (includes targeted exams where dose is matc hed to clinical indication); or iterative reconstruction. FINDINGS: No evidence of intracranial hemorrhage or mass effect. Ventricular system and basal cisterns are gaona nt. Moderate small vessel changes with moderate to advanced parenchymal volume loss. Intracranial vas cular calcification. No extra-axial fluid collections. No evidence of mass or mass effect. Mild mucosal thickening in the paranasal sinuses. Mastoid air cells are well aerated. Dystrophic calc ification along the falx. CT/CT head wo con* [id number] IMPRESSION: 1. No evidence of intracranial hemorrhage or mass effect. 2. Moderate small vessel changes. Moderate to advanced parenchymal volume loss worse in the frontal lobes. 3. No acute intracranial findings.
--- NOTE | 2023-05-05 16:04 | ANES.PREANE2 ---
Pre-Anesthetic Assessment Height/Weight: Height 1.63 m Weight 96.162 kg Temp Pulse Resp BP Pulse Ox O2 Del Method 97 F L 66 16 149/77 96 Room Air 05/05/23 15:57 05/05/23 15:57 05/05/23 15:57 05/05/23 15:57 05/05/23 15:57 05/05/23 15:57 Operation Date: 05/05/23 19:40 Proposed Procedures p Retrograde IM Nail Femur(Right) - Emmanuel Thea, DO Familial anesthetic complications: None Was Beta Lia taken within 24 hours: N/A Was Clonidine taken within 24 hours: N/A Last intake: Intake Last Liquid Date 05/05/23 Last Liquid Time 00:00 Last Solid Date 05/04/23 Last Solid Time 12:00 Social No alcohol and No tobacco Exam alert, oriented x 3, clear to auscultation bilaterally and regular rate & rhythm b/l light wheeze Airway Mallampati: Class IV Dentition: other (no teeth) Pulmonary Chronic Obstructive Pulmonary Disease GI Gastroesophageal Reflux Disease Metabolic Morbid Obesity Neuropsych Seizure Anesthetic Plan ASA status: 3 Anesthesia: General Risk of > 500 ml blood loss (7ml/kg in children): No Medications/Allergies Home Medications Medication Instructions Recorded Confirmed Last Taken Type acetaminophen 160 mg chewable 160 mg PO Q4H PRN Pain 12/28/19 05/05/23 Unknown History tablet albuterol sulfate 90 mcg/actuation 1 inh inhalation Q4H PRN Shortness 12/28/19 05/05/23 Unknown History aerosol inhaler (Ventolin HFA) Of Breath amlodipine 5 mg tablet 5 mg PO DAILY 12/28/19 05/05/23 05/04/23 History aspirin 81 mg chewable tablet 81 mg PO DAILY 12/28/19 05/05/23 05/04/23 History (Ranjeet Chewable Low Dose Aspirin) bisacodyl 10 mg rectal suppository 10 mg [place] DAILY PRN Constipation 12/28/19 05/05/23 Unknown History carbamazepine 200 mg tablet 200 mg PO BID 12/28/19 05/05/23 05/04/23 History chlorhexidine gluconate 0.12 % 15 ml buccal BID 12/28/19 05/05/23 05/04/23 History mouthwash dextromethorphan-guaifenesin 10 5 ml PO Q4H PRN Cough 12/28/19 05/05/23 Unknown History mg-100 mg/5 mL oral liquid (Diabetic Tussin DM) diphenhydramine HCl 25 mg capsule 25 mg PO Q6H PRN Allergy Symptoms 12/28/19 05/05/23 Unknown History (Allergy (diphenhydramine)) docusate sodium 100 mg capsule 100 mg PO BID 12/28/19 05/05/23 05/04/23 History (DOK) epinephrine 0.3 mg/0.3 mL 0.3 ml IM ONCE PRN Allergic 12/28/19 05/05/23 Unknown History injection, auto-injector (EpiPen Reaction 2-Ortega) esomeprazole magnesium 40 mg 40 mg PO DAILY 12/28/19 05/05/23 05/04/23 History capsule,delayed release ferrous sulfate 325 mg (65 mg 325 mg PO DAILY 12/28/19 05/05/23 05/04/23 History iron) tablet furosemide 20 mg tablet 20 mg PO BID 12/28/19 05/05/23 05/04/23 History losartan 50 mg tablet 50 mg PO DAILY 12/28/19 05/05/23 05/04/23 History lovastatin 20 mg tablet 20 mg PO DAILY 12/28/19 05/05/23 05/04/23 History metoprolol tartrate 50 mg tablet 50 mg PO BID 12/28/19 05/05/23 05/04/23 History multivitamin,zs-ayqr-ppmypcwp 27 1 tab PO DAILY 12/28/19 05/05/23 Unknown History mg-0.4 mg tablet (Therems-M) nitroglycerin 0.4 mg sublingual 0.4 mg sublingual Q5M PRN Chest 12/28/19 05/05/23 Unknown History tablet (Nitrostat) Pain ondansetron HCl 4 mg tablet 4 mg PO Q4H PRN Nausea 12/28/19 05/05/23 Unknown History potassium chloride 10 mEq 10 meq PO BID 12/28/19 05/05/23 05/04/23 History capsule,extended release risperidone 0.25 mg tablet 0.25 mg PO BID 12/28/19 05/05/23 05/04/23 History sennosides 8.6 mg capsule (senna) 8.6 mg PO BID 12/28/19 05/05/23 05/04/23 History topiramate 50 mg tablet 50 mg PO BID 12/28/19 05/05/23 05/05/23 History clonazepam 0.5 mg tablet (Klonopin) 0.5 mg PO BID PRN when seizure 04/01/21 05/05/23 Unknown Rx pending #10 tabs trazodone 50 mg tablet 50 mg PO .at bedtime #30 tabs 04/01/21 05/05/23 1 Day Ago Rx ~05/04/23 DME: Walker #1 ea 09/21/22 05/05/23 Unknown Rx lacosamide 200 mg tablet (Vimpat) 200 mg PO BID #60 tabs 01/25/23 05/05/23 05/04/23 Rx calcium carbonate 500 mg-vitamin 1 tab PO DAILY 05/04/23 05/05/23 05/04/23 History D3 5 mcg (200 unit) tablet (Oysco 500/D) arformoterol 15 mcg/2 mL solution 2 ml inhalation QAM 05/05/23 05/05/23 Unknown History for nebulization (Brovana) camphor 4.7 %-eucalyptus oil 1.2 1 applic topical BID PRN Cough 05/05/23 05/05/23 Unknown History %-menthol 2.6 % topical ointment (Vicks Vaporub) ipratropium 0.5 mg-albuterol 3 mg 3 ml inhalation Q6H PRN Shortness 05/05/23 05/05/23 Unknown History (2.5 mg base)/3 mL nebulization Of Breath soln nystatin 100,000 unit/gram topical 1 applic topical BID 05/05/23 05/05/23 Unknown History powder (Nyamyc) sennosides 8.6 mg tablet (senna) 8.6 mg PO BEDTIME PRN Constipation 05/05/23 05/05/23 Unknown History Allergies Allergy/AdvReac Type Severity Reaction Status Date / Time lisinopril Allergy ALGY-Anaphy Verified 05/04/23 23:55 laxis Current Medications Generic Name Dose Route Start Last Admin Trade Name Freq PRN Reason Stop Dose Admin Carbamazepine 200 mg 05/05/23 01:30 05/05/23 08:47 Carbamazepine 200 Mg Tablet PO 200 mg BID ANT Administration Erythromycin 1 applic 05/05/23 13:37 05/05/23 13:52 Erythromycin Op Oint 1 Gm EYE-BOTH 1 applic QID ANT Administration Protocol Sodium Chloride 1,000 mls @ 75 mls/hr 05/04/23 21:45 05/05/23 12:02 Sodium Chloride 0.9% IV 75 mls/hr .[id number] ANT Administration Lacosamide 200 mg 05/05/23 01:15 05/05/23 08:46 Lacosamide 50 Mg Tablet PO 200 mg BID ANT Administration Metoprolol Tartrate 50 mg 05/05/23 01:30 05/05/23 08:47 Metoprolol Tartrate 50 Mg Tablet PO 50 mg BID ANT Administration Morphine Sulfate 2 mg 05/04/23 21:36 05/05/23 13:09 Morphine 4 Mg/Ml Sdv 1 Ml IVP 2 mg Q4H PRN Administration SEVERE PAIN Pantoprazole Sodium 40 mg 05/04/23 21:45 05/04/23 22:26 Pantoprazole 40 Mg Sdv IVP 40 mg Q24H ANT Administration Risperidone 0.25 mg 05/05/23 01:30 05/05/23 08:47 Risperidone 0.25 Mg Tablet PO 0.25 mg BID ANT Administration Senna 8.6 mg 05/05/23 09:00 05/05/23 08:47 Sennosides 8.6 Mg Tablet PO 8.6 mg BID ANT Administration Topiramate 50 mg 05/05/23 01:24 05/05/23 08:47 Topiramate 25 Mg Tablet PO 50 mg BID ANT Administration Trazodone HCl 50 mg 05/05/23 01:15 05/05/23 01:30 Trazodone 50 Mg Tablet PO 50 mg BEDTIME ANT Administration [facility] Anesthesia Medical History (Updated 05/04/23 @ 20:20 by FELIBERTO Small) Chronic constipation Complex partial epilepsy COPD mixed type COVID-19 DJD (degenerative joint disease) DNR no code (do not resuscitate) Dyslipidemia Essential (primary) hypertension GERD (gastroesophageal reflux disease) Lives in assisted living facility Low serum iron Obesity, morbid, BMI 40.0-49.9 Osteoporosis Urinary incontinence in female Vitamin D deficiency Surgical History History of total hysterectomy Family History Mother Diabetes Heart disease Family/Other Diabetes Aunt Father Heart disease Social History Smoking and tobacco status: never smoked Second hand smoke exposure: No Substance/Drug Use: never Lives independently: No Housing: Assisted Living Facility Marital status: Current occupational status: retired Data Anesthesia 05/05/23 05:11 05/05/23 05:11 Short CBC 05/04/23 05/05/23 Range/Units 20:20 05:11 WBC 13.7 H 9.2 (4.0-10.0) 10^3/uL Hgb 14.4 13.1 (11.5-15.3) g/dL Hct 45.1 42.2 (37.0-47.0) % MCV 95.3 97.9 (81-99) fl Plt Count 258 211 (130-400) 10^3/cmm Neut % (Auto) 76.8 64.2 % Neut # (Auto) 10.52 H 5.87 (1.8-7.7) 10^3/uL BMP 05/04/23 05/05/23 20:20 05:11 Sodium 141 140 Potassium 3.8 3.9 Chloride 107 105 Carbon Dioxide 22 24 BUN 19 16 Creatinine 0.8 0.8 Glucose 114 101 Calcium 9.0 8.3 L Liver Function 05/04/23 05/05/23 Range/Units 20:20 05:11 Total Bilirubin 0.2 0.2 (0.15-1.2) mg/dL AST 16 36 H (0-32) U/L ALT 15 22 (0-33) U/L Alkaline Phosphatase 157 H 147 H (35-105) U/L Albumin 3.8 3.6 (3.5-5.2) g/dL Cardiac Studies: No Data to Display
[2023-05-05] MEDS: sodium chloride 0.9% 1,000 ML 30 ML IV (16:08)
--- NOTE | 2023-05-05 16:20 | PC.NURSE ---
1550 Pt went down to surgery.
--- NOTE | 2023-05-05 18:09 | P.PN_ITS ---
Subjective Subjective: Patient was seen this morning, she tells me that she has a headache, when she fell she hit the back of her head, she also is complaining of a right eye itching, she tells me that it is matted in the morning, and its been draining, no visual deficits, no blurry vision, no floaters, no photopsia Vitals/I&O/Wt Last Vital Signs Temp 97 F L 05/05/23 15:57 Pulse 66 05/05/23 15:57 Resp 16 05/05/23 15:57 BP 149/77 05/05/23 15:57 Pulse Ox 96 05/05/23 15:57 O2 Del Method Room Air 05/05/23 15:57 05/05/23 05/05/23 05/05/23 06:59 14:59 22:59 Intake Total 1000 / 1000 Output Total 500 / 500 335 / 335 Balance -500 / -500 1000 / 1000 -335 / 665 Weight last 48 hrs Weight 96.162 kg Physical Exam Const: COMMON NORMALS: no acute distress and patient oriented x3 Eye: COMMON NORMALS: Equal, round and reactive pupils present and EOMs intact bilaterally PUPIL: Yes Equal, round and reactive pupils present OTHER: Right eye, conjunctivitis, conjunctival injection Resp: COMMON NORMALS: normal respiratory effort, No retractions, No use of accessory muscles and clear to auscultation bilaterally AUSCULTATION: clear to auscultation bilaterally Cardio: COMMON NORMALS: regular rate, regular rhythm, S1 normal heart sound present and S2 normal heart sound present RATE: regular rate RHYTHM: regular rhythm HEART SOUNDS: S1 normal heart sound present and S2 normal heart sound present GI: COMMON NORMALS: Normal to inspection, nondistended, normoactive bowel sounds present and non-tender Extremity: COMMON NORMALS: no pedal edema Neuro: COMMON NORMALS: patient oriented x3 Psych: COMMON NORMALS: mental status grossly normal Urinary Catheter Management: [place]: Cath Placed During This Visit: yes Reason for Continuing Indwelling Catheter: Perioperative Use in Selected Surgeries Urinary Catheter Date of Insertion: 05/04/23 Urinary Catheter Time of Insertion: 22:39 Data 05/05/23 05:11 05/05/23 05:11 A&P Assessment and plan (1) Femoral distal fracture: Qualifiers: Encounter type: initial encounter Fracture morphology: other fracture Fracture type: closed Laterality: right Qualified Code(s): S72.491A - Other fracture of lower end of right femur, initial encounter for closed fracture (2) DJD (degenerative joint disease): (3) Low serum iron: (4) DNR no code (do not resuscitate): (5) Obesity, morbid, BMI 40.0-49.9: (6) Lives in assisted living facility: (7) Essential (primary) hypertension: (8) COPD mixed type: (9) Complex partial epilepsy: (10) Conjunctivitis: (11) Headache: Plan #Right femur fracture #Status post mechanical fall, slipped in shower #History of seizures #Hypertension #Iron deficiency anemia #COPD -PT OT after surgery ? Check topiramate level, lacosamide level, carbamazepine level ? Continue seizure medications, metoprolol tartrate ? Hold ARB losartan 50 since patient undergoing anesthesia in a.m. ? Hold Lasix at this time ? Gentle IV hydration 75 cc normal saline per hour ? Continue RN, Protonix ? Hold clonazepam at this time. It is as needed for seizures breakthrough ? Continue aspirin, amlodipine ? Placed on cardiac telemetry ? Seizure precautions ? Start erythromycin for conjunctivitis ? Cardiomegaly noted on chest x-ray however no evidence of pulmonary edema at this time ? DuoNeb every 4 hours as needed ? Baseline EKG shows sinus rhythm. ? CT of the head given fall DNR/DNI. Discussed this in a lot of detail with the patient with presence of RN in the room. Patient talks about her gnosticist ab when discussing CODE STATUS. SCDs, heparin SQ twice daily Plan for today, await surgery, start erythromycin, CT of the head, continue fluids Attestations Medical Necessity Statement*: Patient requires hospitalization for right femur fracture, fall,, conjunctivitis, headache Diagnoses Femoral distal fracture S72.491A Encounter type: initial encounter Fracture morphology: other fracture Fracture type: closed Laterality: right DJD (degenerative joint disease) M19.90 Low serum iron E61.1 DNR no code (do not resuscitate) Z66 Obesity, morbid, BMI 40.0-49.9 E66.01 Lives in assisted living facility Z59.3 Essential (primary) hypertension I10 COPD mixed type J44.9 Complex partial epilepsy G40.209 Conjunctivitis H10.9 Headache R51.9
--- NOTE | 2023-05-05 18:39 | W.PM.OPSUD ---
Surgery/Procedure H&P Update DATE OF PROCEDURE: May 05, 2023 DATE H&P PERFORMED: 05/04/23 CHANGES TO PREVIOUS DOCUMENTATION: None from consultation note. CT scan shows appropriate bone stock distally no intra-articular involvement. PREOP DIAGNOSIS: Right distal femur fracture PRIMARY INDICATION FOR PROCEDURE: Right distal femur fracture PLANNED PROCEDURE: Operation Date: 05/05/23 19:40 Proposed Procedures p Retrograde IM Nail Femur(Right) - Emmanuel Sidhu DO
[2023-05-05] MEDS: ceFAZolin 2,000 MG in sodium chloride 0.9% (plus) 50 ML 100 MG IV ×2 (18:53→23:48)
[2023-05-05] MEDS: acetaminophen 1,000 MG/100 ML PIGGYBACK 400 MG IV (18:53)
[2023-05-05] MEDS: ketorolac 30 mg/mL INJ IVP (20:03)
--- NOTE | 2023-05-05 20:09 | SUR.OPER ---
called nikeiko and notified her of surgical progress.
--- NOTE | 2023-05-05 22:04 | XRR_ITS ---
PROCEDURE INFORMATION: Exam: XR Right Femur Exam date and time: 05/05/2023 9:19 PM Age: 83 years old Clinical indication: Pain; Thigh; Right; Prior surgery; Surgery date: Post-operative (0-2 days); Surgery type: Fem nail; Additional info: Postop retrograde fem nail TECHNIQUE: Imaging protocol: Radiologic exam of the right femur. Views: 2 views. COMPARISON: CR (LOW EXM, ) 05/04/2023 7:52 PM FINDINGS: Bones/joints: There is oblique fracture of the distal right femur status post open reduction internal fixation with placement of an intramedullary italo. Fracture fragments are in anatomic alignment. Soft tissues: There is some soft tissue gas consistent with the recent surgery. XR/XR femur RT min 2V* [id number] IMPRESSION: ORIF of right femur.
--- NOTE | 2023-05-05 22:04 | PM.OP2 ---
Brief Operative Note Date of procedure: 05/05/23 Pre-op diagnosis: Right distal femur fracture Post-op diagnosis: same Procedure Done: Right distal femur open reduction internal fixation with retrograde intramedullary nail Surgeon: Emmanuel Sidhu Estimated blood loss (mL): 150 Complications: None Post-op Plan: Patient taken to PACU in stable condition recovering well. Will be returning to the floor postoperatively. Will receive appropriate discharge instructions as well as pain medication, DVT prophylaxis, postoperative antibiotics postoperative TXA. Will be partial weightbearing 30 to 50% while working with PT/OT. Encourage knee range of motion hip range of motion as tolerated. Dressings will be changed as needed. Ice and elevate as needed for pain and swelling. Orthopedics will continue to monitor postoperatively. Internal medicine as primary. Condition: stable Disposition: floor Coding Level of Care Code Acute Code for Charli Novoa
--- NOTE | 2023-05-05 22:06 | PM.PACU ---
PACU note Narrative: Patient taken to PACU in stable condition recovering well. Patient will return to the floor postoperatively. Dressings are on in place clean dry and intact. Right lower extremity is warm well-perfused brisk capillary refill less than 2 seconds distal pulses are palpable. Compartments are soft compressible. Sensation intact light touch distally patient is able to wiggle toes plantarflex and dorsiflex ankle. Exam: awake Disposition: back to floor
--- NOTE | 2023-05-05 22:07 | P.OP_ITS ---
Operative Report Date of procedure: May 05, 2023 Pre-op diagnosis: Preop Diagnosis Right distal femur fracture Procedure: Post-op diagnosis: Same Post-op findings: See procedure note for details Procedure done: Right distal femur open reduction internal fixation with retrograde nail Implants: Hamlin SCN nail 13 mm x 360 mm Distal screws (5.0 condylar bolts 65 mm and 85 mm, 5.0 oblique distal locking screws 75 mm, 75 mm) Proximal locking screws 5.0 mm x2 (35 mm, 37.5 mm) Specimens removed/disposition: None Surgeon: Emmanuel Sidhu DO Estimated blood loss: 150cc None IV fluids: See anesthesia record Complications: None Findings: See operative report narrative Brief History: Patient presents is a pleasant 83-year-old female who sustained a ground level mechanical fall directly onto her right knee and sustained a significant pain. Brought to emergency department found to have right supracondylar distal femur fracture.? Patient does ambulate with a walker at baseline she does live in an assisted living facility. I did talk with her niece as well as with the patient patient is aware understands alert and oriented able to make medical decisions for herself she understands her diagnosis and her treatment options we talked about nonoperative and operative intervention. At this point time for earlier mobilization and pain control would recommend surgical intervention. X-rays demonstrate this is a spiral fracture of the distal femur ending in the supracondylar region this appears to be amenable for retrograde nail fixation. I did order CT scan which showed no intra-articular involvement. Through shared decision-making agreed to proceed with surgical intervention understanding the procedure. Understands the risks which include but are not limited to make a better make it worse, blood clot, heart attack, stroke, on the table, excessive blood loss requiring possible transfusion, failure of hardware and repeat surgery, fracture malunion, nonunion, infection, and understanding these risks was agreeable to proceed with surgery. All questions answered. Procedure: Patient was seen and evaluated in the preoperative holding area the correct right lower extremity was then marked.? The consent was reviewed and obtained.? Patient received appropriate preoperative antibiotics was evaluated by anesthesia team.? Patient was then taken to the OR and underwent spinal anesthesia per the anesthesia department.? Once appropriately anesthetized she was then placed into the OR bed which was a flattop Luis Angel in supine position.? All bony prominences were well-padded and patient was appropriately secured to the bed.? Patient's right lower extremity was then prepped and draped in megan samuel orthopedic fashion.? Final timeout performed. Initially we begun surgery with large fluoroscopic C arm to evaluate her fracture pattern as well as see our attempts at closed reduction.? Patient did have displacement of the spiral fracture that was slightly off in AP as well as a sagittal plane as a result utilizing traction by my assistant women's tennis coach as well as a large periarticular clamp small stab incisions were made percutaneously into the dissection straight to bone I was able to use his periarticular clamps to clamp perpendicularly across the fracture site and maintain an anatomic reduction in both AP and lateral x-rays this was satisfactory I then proceeded with the nail. Next we then proceeded with starting our guidewire placement.? Longitudinal incision was made over the anterior aspect of knee centering over the patellar tendon.? Sharp scalpel excision through skin subcutaneous tissue and peritenon.? Next a small stab incision was split midline of the patellar tendon.? Next the guidewire was then placed centered in the intercondylar notch on an AP of the knee on the lateral just anterior to [place] appropriate position line.? Once this was in appropriate position this was then advanced to being center center in the canal.? Once we liked our position we plan for opening reamer.? Of note patient did have noticeable patellar [place] which was attempting to push posteriorly our starting point.? I utilized the soft tissue protector for reamer to help elevate the patella to keep us more in line with our initial starting point.? We utilized our opening reamer and then the ball-tipped guidewire was then advanced to appropriate position just above the lesser this point we then took our measurement which was 360 mm.? Next we sequentially reamed up to a 14.5 which had excellent chatter.? Of note our reduction was well-maintained during our reaming.? Next we then opened a Ham[place] SCN nail 13 mm x 360 mm this was loaded appropriately and then gently impacted into position.? This confirmed the reduction was maintained throughout while continuing to leave our clamp in place to hold the reduction while we locked the nail. ? I proceeded with locking the nail distally while the reduction was held.? I placed the condylar bolts in the 1 and 4 position on the SCN nail these were appropriately drilled measured and the SCN bolts were appropriately placed and secured with solid fixation.?? Next I then placed my orthogonal interlocking screws which were then drilled measured and appropriate length 5.0 mm locking screws were then placed through the distal fractures fragment and nail.? This completed our distal fixation.? Next I then obtained perfect circles of the nail proximally.? Utilizing perfect [place] technique I then made a small single incision proximally to incorporate placing 2 proximal locking screws.? Sharp scalpel excision through skin.? Then utilized blunt digital dissection the subcutaneous tissue split the fibers of the quadricep muscle and directly down to bone.? Next introduced the drill bit and under perfect [place] technique with fluoroscopic imaging placed to proximal interlocking screws which 35 mm and 37.5 mm in size.? Screws were then placed and had excellent fixation.? This completed a retrograde nail construct.? Clamp was removed, I then assessed the fracture site and took patient's right knee through range of motion. the fracture site was stable and had no evidence of motion. This completed my construct.? Patient's incision sites were then thoroughly irrigated.? He was debrided and irrigated to clear of any reamings. 0 Vicryl 2-0 Vicryl and delphine were used to close the incisions.? Silverlon dressings were used to cover the incisions.? Patient was then awakened from anesthesia and taken to PACU in stable condition. Disposition: Patient taken to PACU in stable condition.?? Patient will return to the floor.? Patient received appropriate postoperative antibiotics.? DVT prophylaxis.? Pain control.?partial weightbearing 30 to 50% to the right lower extremity in hopes to help with mobility.? PT/OT.? Will see patient in my office in 2 weeks postoperatively.
--- NOTE | 2023-05-05 22:21 | ANE.PACU2 ---
Inpatient post-anesthesia follow up: Airway intact: Yes Vital signs: Temperature 97 F Pulse Rate 85 Respiratory Rate 14 Blood Pressure 129/83 Pulse Oximetry 99 Oxygen Delivery Me thod mask Oxygen Flow Rate 6 Fraction of Inspir ed Oxygen Hydration adequate: Yes Nausea and vomiting: No Pain level: 1 Mental status: Baseline
[2023-05-05 23:18] LABS: Glucose Point of Care 151 mg/dL (70-110)
[2023-05-05] MEDS: oxyCODONE 5 mg IR Tab/Cap PO (23:46)
[2023-05-06] VITALS (13 sets, daily range): BP systolic 96–135; BP diastolic 58–74; PULSE 45–71; RESP 16–18; TEMP 36.4–37; O2SAT 91–100
[2023-05-06 04:28] LABS: Basophils % 0.2 %; Hematocrit 37.1 % (37.0-47.0); Hemoglobin 11.2 g/dL (11.5-15.3); Lymphocytes # 0.8 10^3/uL (0.8-4.8); Lymphocytes % 5.9 %; Mean Corpuscular HGB Conc 30.2 g/dL (30.0-36.0); Mean Corpuscular Hemoglobin 30.5 pg (28.0-34.0); Mean Corpuscular Volume 101.1 fl (81-99); Mean Platelet Volume 9.3 fL (7.4-10.4); Monocytes # 1.2 10^3/uL (0.2-0.9); Monocytes % 8.7 %; Neutrophils # 11.16 10^3/uL (1.8-7.7); Neutrophils % 84.8 %; Nucleated Red Blood Cells % 0 %; Platelet Count 183 10^3/cmm (130-400); Red Blood Count 3.67 10^6/uL (4.1-5.3); Red Cell Distribution Width 14.1 % (12.1-15.1); White Blood Count 13.2 10^3/uL (4.0-10.0)
[2023-05-06] MEDS: acetaminophen 325 mg Tablet 650 MG PO ×2 (04:45→13:11)
[2023-05-06] MEDS: ondansetron 2 mg/ML SDV 2 mL 4 MG IVP (04:45)
[2023-05-06 04:54] LABS: Anion Gap 13.6 (5-19); Blood Urea Nitrogen 14 mg/dL (8-23); Calcium 7.4 mg/dL (8.5-10.5); Carbon Dioxide 21 mmol/L (22-29); Chloride 112 mmol/L (98-107); Glucose 126 mg/dL (65-115); Osmolality Calculated 296 mOsm/kg (285-295); Potassium 4.6 mmol/L (3.5-5.1); Sodium 142 mmol/L (136-145)
[2023-05-06] MEDS: TRAMadol 50 mg Tablet PO ×2 (06:56→20:10)
[2023-05-06] MEDS: erythromycin Op Oint 1 gm 1 APPLIC EYE-BOTH ×4 (08:34→20:12)
[2023-05-06] MEDS: carBAMazepine 200 mg Tablet PO ×2 (08:34→17:01)
[2023-05-06] MEDS: chlorhexidine gluconate 0.12% UDC 15 mL 30 ML MUCOUS MEM ×3 (08:34→17:02)
[2023-05-06] MEDS: lacosamide 50 mg Tablet 200 MG PO ×2 (08:34→17:13)
[2023-05-06] MEDS: topiramate 25 mg Tablet 50 MG PO ×2 (08:35→17:13)
[2023-05-06] MEDS: metoprolol tartrate 50 mg Tablet PO ×2 (08:35→17:00)
[2023-05-06] MEDS: iron polysaccharide complex 150 mg Capsule PO ×2 (08:35→17:01)
[2023-05-06] MEDS: calcium carb-vit d 600mg/400unit 1 Tablet 1 EACH PO ×2 (08:35→17:01)
[2023-05-06] MEDS: mupirocin oint 22 gm 1 APPLIC NASAL ×2 (08:35→17:01)
[2023-05-06] MEDS: multivitamin therapeutic Tablet 1 TAB PO (08:35)
[2023-05-06] MEDS: sennosides 8.6 mg Tablet PO ×2 (08:35→17:01)
[2023-05-06] MEDS: risperiDONE 0.25 mg Tablet PO ×2 (08:35→17:00)
[2023-05-06] MEDS: sodium chloride 0.9% 1,000 ML 75 ML IV (08:36)
[2023-05-06] MEDS: ceFAZolin 2,000 MG in sodium chloride 0.9% (plus) 50 ML 100 MG IV ×2 (08:36→16:19)
[2023-05-06 12:22] LABS: Blood Urine Neg (Negative); Glucose Urine UA Norm (Normal); Ketones Urine 1+ (Negative); Nitrate Urine Negative (Negative); Protein Urine Neg (Negative); Specific Gravity, Urine 1.015 (1.005-1.030); Urine Appearance Clear (CLEAR); Urine Color Yellow (Yellow); pH Urine 5 (5-7)
[2023-05-06 12:23] LABS: Add Urine Culture? No; Add Urine Microscopic? YES; Bacteria Urine TRACE /hpf; Bilirubin Urine Neg (Negative); Leukocyte Esterase Urine Trace (Negative); Mucus Urine TRACE /hpf; RBC Urine 0-4 /hpf (0-2); Squamous Epithelial Cell Urine RARE /hpf (0-5); Urobilinogen Urine Norm (Negative); WBC Urine 0-4 /hpf (0-5)
--- NOTE | 2023-05-06 14:34 | P.PN_ITS ---
Subjective Subjective: Patient was seen this morning, she continues to complain of weakness and fatigue, she wants to work with physical therapy Vitals/I&O/Wt Last Vital Signs Temp 97.6 F 05/06/23 11:56 Pulse 63 05/06/23 11:56 Resp 16 05/06/23 11:56 BP 102/60 05/06/23 11:56 Pulse Ox 92 05/06/23 11:56 O2 Del Method Room Air 05/06/23 11:56 O2 Flow Rate 1.5 05/06/23 04:00 05/05/23 05/06/23 05/06/23 22:59 06:59 14:59 Intake Total 310 / 1310 1660 / 2970 910 / 910 Output Total 785 / 785 225 / 1010 220 / 220 Balance -475 / 525 1435 / 1960 690 / 690 Weight last 48 hrs Weight 96.162 kg Physical Exam Const: COMMON NORMALS: no acute distress and patient oriented x3 Resp: COMMON NORMALS: normal respiratory effort, No retractions, No use of accessory muscles and clear to auscultation bilaterally AUSCULTATION: clear to auscultation bilaterally Cardio: COMMON NORMALS: regular rate, regular rhythm, S1 normal heart sound present and S2 normal heart sound present RATE: regular rate RHYTHM: re gular rhythm HEART SOUNDS: S1 normal heart sound present and S2 normal heart sound present GI: COMMON NORMALS: Normal to inspection, nondistended, normoactive bowel sounds present Extremity: COMMON NORMALS: no pedal edema Neuro: COMMON NORMALS: patient oriented x3 Psych: COMMON NORMALS: mental status grossly normal Urinary Catheter Management: [place]: Cath Placed During This Visit: yes Reason for Continuing Indwelling Catheter: Perioperative Use in Selected Surgeries Urinary Catheter Date of Insertion: 05/04/23 Urinary Catheter Time of Insertion: 22:39 Data 05/06/23 04:09 05/06/23 04:09 Micro: Microbiology 05/05/23 14:35 Urine Culture - Preliminary Urine Catheterized A&P Assessment and plan (1) Femoral distal fracture: Qualifiers: Encounter type: initial encounter Fracture morphology: other fracture Fracture type: closed Laterality: right Qualified Code(s): S72.491A - Other fracture of lower end of right femur, initial encounter for closed fracture (2) DJD (degenerative joint disease): (3) Low serum iron: (4) DNR no code (do not resuscitate): (5) Obesity, morbid, BMI 40.0-49.9: (6) Lives in assisted living facility: (7) Essential (primary) hypertension: (8) COPD mixed type: (9) Complex partial epilepsy: (10) Conjunctivitis: (11) Headache: Plan #Right femur fracture, status postsurgical intervention #Status post mechanical fall, slipped in shower #History of seizures #Hypertension #Iron deficiency anemia #COPD -PT OT ? Continue seizure medications, metoprolol tartrate ? Hold ARB losartan ? Hold Lasix at this time ? We will stop fluids ? Continue RN, Protonix ? Hold clonazepam at this time. It is as needed for seizures breakthrough ? Continue aspirin, amlodipine ? Placed on cardiac telemetry ? Seizure precautions ? Start erythromycin for conjunctivitis ? Cardiomegaly noted on chest x-ray however no evidence of pulmonary edema at t his time ? DuoNeb every 4 hours as needed ? Baseline EKG shows sinus rhythm. ? CT of the head no acute findings -Conjunctivitis, continue erythromycin DNR/DNI. Discussed this in a lot of detail with the patient with presence of RN in the room. Patient talks about her uatsdin ab when discussing CODE STATUS. SCDs, Lovenox for DVT prophylaxis Plan for today, stop fluids, does have leukocytosis, urine cultures so far negative, no shortness of breath complaints, will follow, monitor for fevers, will with physical therapy Attestations Medical Necessity Statement*: Patient requires hospitalization for femur fracture Diagnoses Femoral distal fracture S72.491A Encounter type: initial encounter Fracture morphology: other fracture Fracture type: closed Laterality: right DJD (degenerative joint disease) M19.90 Low serum iron E61.1 DNR no code (do not resuscitate) Z66 Obesity, morbid, BMI 40.0-49.9 E66.01 Lives in assisted living facility Z59.3 Essential (primary) hypertension I10 COPD mixed type J44.9 Complex partial epilepsy G40.209 Conjunctivitis H10.9 Headache R51.9
--- NOTE | 2023-05-06 15:10 | PM.PN ---
Subjective Subjective: Patient seen and evaluated this afternoon postoperative day 1. Pain controlled. Work with therapy. No other issues at this time. Vitals/I&O/Wt Last Vital Signs Temp 97.6 F 05/06/23 11:56 Pulse 63 05/06/23 11:56 Resp 16 05/06/23 11:56 BP 102/60 05/06/23 11:56 Pulse Ox 92 05/06/23 11:56 O2 Del Method Room Air 05/06/23 11:56 O2 Flow Rate 1.5 05/06/23 04:00 05/06/23 05/06/23 05/06/23 06:59 14:59 22:59 Intake Total 1660 / 2970 910 / 910 Output Total 225 / 1010 220 / 220 Balance 1435 / 1960 690 / 690 Weight last 48 hrs Weight 212 lb Physical Exam Narrative: Examination right lower extremity toes warm well-perfused brisk cap refill less than 2 seconds compartments are soft compressible normal postoperative swelling and ecchymosis around the right femur. Dressings are on in place to clean dry and intact. Patient endorses sensations intact light touch distally able to wiggle toes as well as plantarflex and dorsiflex ankle. pain noted with knee range of motion. Urinary Catheter Management: [place]: Cath Placed During This Visit: yes Reason for Continuing Indwelling Catheter: Perioperative Use in Selected Surgeries Urinary Catheter Date of Insertion: 05/04/23 Urinary Catheter Time of Insertion: 22:39 Data 05/07/23 04:59 05/07/23 04:59 Other Labs: Hemoglobin 11.2 on 05/06/2023 Micro: Microbiology 05/05/23 14:35 Urine Culture - Preliminary Urine Catheterized Xray Ortho: My impression: Postoperative x-rays demonstrate stable reduction right distal femur fracture with retrograde femoral nail stable femur proximal and distal fixation A&P Assessment and plan (1) Femoral distal fracture: Qualifiers: Encounter type: initial encounter Fracture morphology: other fracture Fracture type: closed Laterality: right Qualified Code(s): S72.491A - Other fracture of lower end of right femur, initial encounter for closed fracture Plan 30 to 50% partial weightbearing right lower extremity Encourage knee range of motion Ice as needed for pain and swelling PT/OT Pain control DVT prophylaxis Postoperative antibiotics Internal medicine on board as primary Resume regular diet Orthopedics will continue to follow along on the floor A.m. labs reviewed Attestations Medical Necessity Statement*: Ongoing care right distal femur fracture Coding Level of Care Code Acute Code for g Fwd Diagnoses Femoral distal fracture S72.491A Encounter type: initial encounter Fracture morphology: other fracture Fracture type: closed Laterality: right Time Spent (min) 15
[2023-05-06] MEDS: oxyCODONE 5 mg IR Tab/Cap PO ×2 (16:17→21:57)
[2023-05-06] MEDS: enoxaparin 30 mg/0.3 mL Syringe SUBCUT (16:18)
--- NOTE | 2023-05-06 22:14 | PC.NURSE ---
Dr. Ba notified that patient has had two US-guided IVs placed today and both have infiltrated. Patient currently does not have an IV and is a very difficult stick. Ordered to switch IV Protonix to PO. Ordered to attempt for another IV placement.
[2023-05-07] VITALS: BP 123/76; PULSE 69; RESP 16; TEMP 36.7; O2SAT 93
[2023-05-07] MEDS: TRAMadol 50 mg Tablet PO ×2 (00:35→10:18)
[2023-05-07 03:56] VITALS: RESP 16
[2023-05-07] MEDS: oxyCODONE 5 mg IR Tab/Cap PO (03:56)
[2023-05-07 04:00] VITALS: BP 145/76; PULSE 70; RESP 18; TEMP 36.4; O2SAT 95
[2023-05-07 04:54] VITALS: PULSE 75
--- NOTE | 2023-05-07 05:00 | PC.NURSE ---
ICU nurse attempt to get US IV on patient and was unsuccessful. Patient stating no more sticks.
[2023-05-07 05:13] LABS: Basophils % 0.4 %; Eosinophils # 0.4 10^3/uL (0.0-0.8); Eosinophils % 4.3 %; Hematocrit 34.2 % (37.0-47.0); Hemoglobin 10.7 g/dL (11.5-15.3); Lymphocytes # 1.4 10^3/uL (0.8-4.8); Lymphocytes % 15.1 %; Mean Corpuscular HGB Conc 31.3 g/dL (30.0-36.0); Mean Corpuscular Hemoglobin 30.4 pg (28.0-34.0); Mean Corpuscular Volume 97.2 fl (81-99); Mean Platelet Volume 9.2 fL (7.4-10.4); Monocytes # 1.2 10^3/uL (0.2-0.9); Monocytes % 12.4 %; Neutrophils # 6.27 10^3/uL (1.8-7.7); Neutrophils % 67.4 %; Nucleated Red Blood Cells % 0 %; Platelet Count 209 10^3/cmm (130-400); Red Blood Count 3.52 10^6/uL (4.1-5.3); Red Cell Distribution Width 14.4 % (12.1-15.1); White Blood Count 9.3 10^3/uL (4.0-10.0)
[2023-05-07 05:37] LABS: Anion Gap 14.1 (5-19); Blood Urea Nitrogen 13 mg/dL (8-23); Calcium 8.4 mg/dL (8.5-10.5); Carbon Dioxide 21 mmol/L (22-29); Chloride 108 mmol/L (98-107); Glucose 108 mg/dL (65-115); Osmolality Calculated 289 mOsm/kg (285-295); Potassium 4.1 mmol/L (3.5-5.1); Sodium 139 mmol/L (136-145)
[2023-05-07 08:00] VITALS: BP 110/73; PULSE 72; RESP 18; TEMP 37; O2SAT 96
--- NOTE | 2023-05-07 09:58 | P.DS_ITS ---
Discharge Providers Date of Admission: 05/04/23 20:06 Date of Discharge: May 07, 2023 Attending Provider at Admission: Maryan Ba MD Attending Provider at Discharge: Ron Nguyen MD Primary Care Provider: JOSE FRANCISCO Ghosh Diagnoses at Discharge Discharge Diagnosis (1) Femoral distal fracture: Status: Acute Qualifiers: Encounter type: initial encounter Fracture morphology: other fracture Fracture type: closed Laterality: right Qualified Code(s): S72.491A - Other fracture of lower end of right femur, initial encounter for closed fracture (2) DJD (degenerative joint disease): Status: Chronic (3) Low serum iron: Status: Chronic (4) DNR no code (do not resuscitate): Status: Chronic (5) Obesity, morbid, BMI 40.0-49.9: Status: Chronic (6) Lives in assisted living facility: Status: Chronic (7) Essential (primary) hypertension: Status: Chronic (8) COPD mixed type: Status: Chronic (9) Complex partial epilepsy: Status: Chronic (10) Conjunctivitis: Status: Acute (11) Headache: Status: Acute Reason for Visit Reason for Visit: FALL Hospital Course Hospital Course Tennille James is a 83 year old female with past medical history of seizures, constipation, COPD, dyslipidemia, hypertension, GERD presented to the hospital today for complaint of a fall.? He states she has osteoarthritis of her knee and a lot of the time her knee gives out and she ends up falling.? Her last fall prior to this was 3 weeks ago and it was also mechanical in nature.? Today she says she fell in the shower.? It was a combination of soapy water under her feet and also her losing her balance due to her knee giving out.? She states that she has a walker with a seat that she uses and lives in senior assisted living facility.? In addition to the above she also has bilateral lower extremity swelling which she says is chronic for her.? She complains of mild pain at this time and is comfortable for the most part.? She does complain of pain upon movement of right lower extremity.? Denies chest pain, shortness of breath, lightheadedness, dizziness or any other preceding symptoms like nausea or vomiting prior to the fall.? Dr. Alonso is her neurologist.? Patient is unable to recall her home medications and would like us to call the facility to obtain the list.? EKG did not show any acute ischemic changes.? It showed sinus rhythm.? Orthopedic surgery was contacted from ER.? Patient does have a distal femur fracture on right side and will be going to OR in a.m. she will be n.p.o. at midnight.? Patient states that she would like to be a DNR/DNI and understands that she will pass away if no intervention is undertaken.? WBC 13.7, rest of labs mainly unremarkable. Patient was admitted to [facility] for right femur fracture, status post surgical intervention, discharged to longterm facility for rehab She had right eye conjunctivitis during the hospitalization, managed with topical erythromycin, discharged with topical erythromycin Physical Exam Const: COMMON NORMALS: no acute distress Resp: COMMON NORMALS: normal respiratory effort, No retractions, No use of accessory muscles and clear to auscultation bilaterally AUSCULTATION: clear to auscultation bilaterally Cardio: COMMON NORMALS: regular rate, regular rhythm, S1 normal heart sound present and S2 normal heart sound present RATE: regular rate RHYTHM: regular rhythm HEART SOUNDS: S1 normal heart sound present and S2 normal heart sound present GI: COMMON NORMALS: Normal to inspection, nondistended, normoactive bowel sounds present and non-tender Extremity: COMMON NORMALS: no pedal edema Urinary Catheter Management: [place]: Cath Placed During This Visit: yes, but has since been removed by the nurse Reason for Continuing Indwelling Catheter: Decision to DC Catheter Urinary Catheter Date of Insertion: 05/04/23 Urinary Catheter Time of Insertion: 22:39 Date Urinary Catheter Removed: 05/07/23 Time Urinary Catheter Discontinued: 04:05 Discharge Data Studies Completed and Pending Completed Studies During Hospitalization Category Date Time Status CT head wo con* [id number] Routine Cat Scan 05/05/23 14:[address] knee RT wo con* [id number] Stat Cat Scan 05/04/23 19:57 Completed XR chest 1V portable [id number] Stat Exams 05/04/23 20:01 Completed XR femur RT min 2V* [id number] Routine Exams 05/05/23 22:04 Completed XR femur RT min 2V* [id number] Stat Exams 05/04/23 19:50 Completed XR hip RT 2-3V wo/w pel* [id number] Stat Exams 05/04/23 19:22 Completed XR knee RT 3V* [id number] Stat Exams 05/04/23 19:22 Completed Pending at discharge Category Date Time Status Basic Metabolic Panel AM LABS Lab 05/08/23 04:00 Ordered COVID [SARS Covid-2 Antigen] Routine Lab 05/07/23 09:32 Uncollected Complete Blood Count w/Auto AM LABS Lab 05/08/23 04:00 Ordered Lacosamide (Vimpat) Routine Lab 05/05/23 01:10 Received Topiramate Level Routine Lab 05/05/23 05:11 Received Urine Culture Stat Lab 05/05/23 14:35 Results Radiology Impressions Hip/Pelvis X-Ray 05/04/23 19:22 IMPRESSION: 1. Right inferior pubic ramus probable healed fracture, CT could further evaluate this if there is concern for an acute refracture. 2. Mild osteoarthritis of the hips bilaterally. Knee X-Ray 05/04/23 19:22 IMPRESSION: 1. Distal femoral metadiaphyseal oblique nondisplaced fracture. 2. Severe tricompartmental osteoarthritis of the knee. Knee CT 05/04/23 19:57 IMPRESSION: 1. Oblique fracture through the distal femur without significant displacement. 2. Advanced osteoarthritis of the right knee. Chest X-Ray 05/04/23 20:01 IMPRESSION: 1. Cardiomegaly. 2. Severe right glenohumeral joint osteoarthritis. Head CT 05/05/23 14:24 IMPRESSION: 1. No evidence of intracranial hemorrhage or mass effect. 2. Moderate small vessel changes. Moderate to advanced parenchymal volume loss worse in the frontal lobes. 3. No acute intracranial findings. Femur X-Ray 05/05/23 22:04 IMPRESSION: ORIF of right femur. Laboratory Results WBC 9.3 10^3/uL (4.0-10.0) 05/07/23 04:59 RBC 3.52 10^6/uL (4.1-5.3) L 05/07/23 04:59 Hgb 10.7 g/dL (11.5-15.3) L 05/07/23 04:59 Hct 34.2 % (37.0-47.0) L 05/07/23 04:59 MCV 97.2 fl (81-99) 05/07/23 04:59 MCH 30.4 pg (28.0-34.0) 05/07/23 04:59 MCHC 31.3 g/dL (30.0-36.0) 05/07/23 04:59 RDW 14.4 % (12.1-15.1) 05/07/23 04:59 Plt Count 209 10^3/cmm (130-400) 05/07/23 04:59 MPV 9.2 fL (7.4-10.4) 05/07/23 04:59 Neut % (Auto) 67.4 % 05/07/23 04:59 Lymph % (Auto) 15.1 % 05/07/23 04:59 Steele % (Auto) 12.4 % 05/07/23 04:59 Eos % (Auto) 4.3 % 05/07/23 04:59 Baso % (Auto) 0.4 % 05/07/23 04:59 Neut # (Auto) 6.27 10^3/uL (1.8-7.7) 05/07/23 04:59 Lymph # (Auto) 1.4 10^3/uL (0.8-4.8) 05/07/23 04:59 Steele # (Auto) 1.2 10^3/uL (0.2-0.9) H 05/07/23 04:59 Eos # (Auto) 0.4 10^3/uL (0.0-0.8) 05/07/23 04:59 Baso # (Auto) 0.0 10^3/uL (0.0-0.1) 05/07/23 04:59 Nucleated RBC % (auto) 0 % 05/07/23 04:59 Nucleated RBCs # 0.0 /100WBC 05/07/23 04:59 Sodium 139 mmol/L (136-145) 05/07/23 04:59 Potassium 4.1 mmol/L (3.5-5.1) 05/07/23 04:59 Chloride 108 mmol/L (98-107) H 05/07/23 04:59 Carbon Dioxide 21 mmol/L (22-29) L 05/07/23 04:59 Anion Gap 14.1 (5-19) 05/07/23 04:59 BUN 13 mg/dL (8-23) 05/07/23 04:59 Creatinine 0.7 mg/dL (0.5-0.9) 05/07/23 04:59 GFR Calculation Not Reportable 05/07/23 04:59 Glucose 108 mg/dL (65-115) 05/07/23 04:59 POC Glucose 151 mg/dL (70-110) H 05/05/23 23:16 Calculated Osmolality 289 mOsm/kg (285-295) 05/07/23 04:59 Lactic Acid 1.6 mmol/L (0.5-2.2) 05/04/23 20:20 Calcium 8.4 mg/dL (8.5-10.5) L 05/07/23 04:59 Magnesium 2.1 mg/dL (1.7-2.3) 05/05/23 05:11 Total Bilirubin 0.2 mg/dL (0.15-1.2) 05/05/23 05:11 AST 36 U/L (0-32) H 05/05/23 05:11 ALT 22 U/L (0-33) 05/05/23 05:11 Alkaline Phosphatase 147 U/L (35-105) H 05/05/23 05:11 Total Protein 6.1 g/dL (6.6-8.7) L 05/05/23 05:11 Albumin 3.6 g/dL (3.5-5.2) 05/05/23 05:11 Globulin 2.5 g/dL (1.3-4.6) 05/05/23 05:11 TSH 1.62 uIU/mL (0.27-4.20) 05/04/23 20:20 Urine Color Yellow (Yellow) 05/06/23 11:30 Urine Appearance Clear (CLEAR) 05/06/23 11:30 Urine pH 5 (5-7) 05/06/23 11:30 Ur Specific [place] 1.015 (1.005-1.030) 05/06/23 11:30 Urine Protein Neg (Negative) 05/06/23 11:30 Urine Glucose (UA) Norm (Normal) 05/06/23 11:30 Urine Ketones 1+ (Negative) H 05/06/23 11:30 Urine Blood Neg (Negative) 05/06/23 11:30 Urine Nitrate Negative (Negative) 05/06/23 11:30 Urine Bilirubin Neg (Negative) 05/06/23 11:30 Urine Urobilinogen Norm mg/dL (Negative) 05/06/23 11:30 Ur Leukocyte Esterase Trace (Negative) H 05/06/23 11:30 Urine RBC 0-4 /hpf (0-2) H 05/06/23 11:30 Urine WBC 0-4 /hpf (0-5) H 05/06/23 11:30 Ur Squamous Epith Cells Rare /hpf (0-5) 05/06/23 11:30 Amorphous Sediment Not Reportable 05/06/23 11:30 Urine Bacteria Trace /hpf (NONE) 05/06/23 11:30 Urine Mucus Trace /hpf 05/06/23 11:30 Carbamazepine 6.0 ug/mL (4.0-12.0) 05/05/23 05:11 Blood Type O Positive 05/05/23 19:43 Rho(D) Type Positive 05/05/23 19:43 Antibody Screen Negative 05/05/23 19:43 Vitals Last Vital Signs Temp 98.6 F 05/07/23 08:00 Pulse 72 05/07/23 08:00 Resp 18 05/07/23 08:00 BP 110/73 05/07/23 08:00 Pulse Ox 96 05/07/23 08:00 O2 Del Method Room Air 05/07/23 08:00 O2 Flow Rate 1.5 05/06/23 04:00 Discharge Plan Discharge Patient Disposition: Xfer SNF Condition: Stable Prescriptions: New erythromycin 5 mg/gram (0.5 %) Ointment 1 applic eye-both QID 7 Days Qty: 3.5 0RF Continued aspirin [Ranjeet Chewable Aspirin] 81 mg tablet,chewable 81 mg PO DAILY carbamazepine 200 mg tablet 200 mg PO BID docusate sodium [DOK] 100 mg capsule 100 mg PO BID esomeprazole magnesium 40 mg capsule,delayed release(DR/EC) 40 mg PO DAILY losartan 50 mg tablet 50 mg PO DAILY lovastatin 20 mg tablet 20 mg PO DAILY metoprolol tartrate 50 mg tablet 50 mg PO BID risperidone 0.25 mg tablet 0.25 mg PO BID senna 8.6 mg capsule 8.6 mg PO BID Therems-M 27-0.4 mg tablet 1 tab PO DAILY topiramate 50 mg tablet 50 mg PO BID acetaminophen 160 mg tablet,chewable 160 mg PO Q4H PRN (Reason: Pain) ondansetron HCl 4 mg tablet 4 mg PO Q4H PRN (Reason: Nausea) chlorhexidine gluconate 0.12 % mouthwash 15 ml BUCCAL BID ferrous sulfate 325 mg (65 mg iron) tablet 325 mg PO DAILY potassium chloride 10 mEq capsule, extended release 10 meq PO BID bisacodyl 10 mg suppository 10 mg MT DAILY PRN (Reason: Constipation) dextromethorphan-guaifenesin [Diabetic Tussin DM] 10-100 mg/5 mL liquid 5 ml PO Q4H PRN (Reason: Cough) diphenhydramine HCl [Allergy (diphenhydramine)] 25 mg capsule 25 mg PO Q6H PRN (Reason: Allergy Symptoms) Rx Instructions: 4 - 6 HRS NEEDED epinephrine [EpiPen 2-Ortega] 0.3 mg/0.3 mL auto-injector 0.3 ml IM ONCE PRN (Reason: Allergic Reaction) nitroglycerin [Nitrostat] 0.4 mg tablet, sublingual 0.4 mg SUBLINGUAL Q5M PRN (Reason: Chest Pain) albuterol sulfate [Ventolin HFA] 90 mcg/actuation HFA aerosol inhaler 1 inh INHALATION Q4H PRN (Reason: Shortness Of Breath) (DME) DME: Walker Unit See Rx Instructions .ROUTE .MEDSUPPLY Qty: 1 0RF Rx Instructions: Code E0143 and E0156 walker 4 wheels and seat lacosamide [Vimpat] 200 mg tablet 200 mg PO BID Qty: 60 5RF clonazepam [Klonopin] 0.5 mg tablet 0.5 mg PO BID PRN (Reason: when seizure pending) Qty: 10 0RF trazodone 50 mg tablet 50 mg PO .at bedtime Qty: 30 2RF calcium carbonate-vitamin D3 [Oysco 500/D] 500 mg-5 mcg (200 unit) Tablet 1 tab PO DAILY senna 8.6 mg Tablet 8.6 mg PO BEDTIME PRN (Reason: Constipation) ipratropium-albuterol 0.5 mg-3 mg(2.5 mg base)/3 mL Solution For Nebulization 3 ml INHALATION Q6H PRN (Reason: Shortness Of Breath) Nyamyc 100,000 unit/gram Powder 1 applic TOPICAL BID Brovana 15 mcg/2 mL Solution For Nebulization 2 ml INHALATION QAM Vicks Vaporub 4.7-1.2-2.6 % Ointment 1 applic TOPICAL BID PRN (Reason: Cough) Changed furosemide 20 mg tablet 20 mg PO DAILY 30 Days Qty: 30 0RF Discontinued amlodipine 5 mg tablet 5 mg PO DAILY Discharge Orders: Discharge Order (Routine); Ordered 05/07/23 Ordered By: Ron Nguyen Referrals: [facility] [Outside] Annita Farah, SURVEY QUESTIONNAIRE DESIGNER-C [Primary Care Provider] - Discharge Diet: Cardiac Discharge Activity: Resume usual activity Patient Instructions: Opioid Safety Discharge Attestations Time Spent in Discharge Care*: greater than 30 min Quality Metrics Clinical Quality Measures [ No reported AMI, CVA or VTE this stay] Coding Level of Care Code 12046 Total time (in minutes) for Discharge: 45 Diagnoses Femoral distal fracture S72.491A Encounter type: initial encounter Fracture morphology: other fracture Fracture type: closed Laterality: right DJD (degenerative joint disease) M19.90 Low serum iron E61.1 DNR no code (do not resuscitate) Z66 Obesity, morbid, BMI 40.0-49.9 E66.01 Lives in assisted living facility Z59.3 Essential (primary) hypertension I10 COPD mixed type J44.9 Complex partial epilepsy G40.209 Conjunctivitis H10.9 Headache R51.9
[2023-05-07] MEDS: sennosides 8.6 mg Tablet PO (10:17)
[2023-05-07] MEDS: topiramate 25 mg Tablet 50 MG PO (10:17)
[2023-05-07] MEDS: pantoprazole DR 40 mg Tablet PO (10:17)
[2023-05-07] MEDS: lacosamide 50 mg Tablet 200 MG PO (10:17)
[2023-05-07] MEDS: calcium carb-vit d 600mg/400unit 1 Tablet 1 EACH PO (10:17)
[2023-05-07] MEDS: multivitamin therapeutic Tablet 1 TAB PO (10:17)
[2023-05-07] MEDS: metoprolol tartrate 50 mg Tablet PO (10:17)
[2023-05-07] MEDS: iron polysaccharide complex 150 mg Capsule PO (10:17)
[2023-05-07] MEDS: chlorhexidine gluconate 0.12% UDC 15 mL 30 ML MUCOUS MEM ×2 (10:22→13:45)
[2023-05-07] MEDS: carBAMazepine 200 mg Tablet PO (10:22)
[2023-05-07] MEDS: risperiDONE 0.25 mg Tablet PO (10:22)
[2023-05-07] MEDS: mupirocin oint 22 gm 1 APPLIC NASAL (11:22)
[2023-05-07] MEDS: erythromycin Op Oint 1 gm 1 APPLIC EYE-BOTH ×2 (11:23→13:46)
[2023-05-07 11:33] VITALS: BP 104/65; PULSE 67; RESP 16; TEMP 37.3; O2SAT 95
--- NOTE | 2023-05-07 12:48 | PM.PN ---
Subjective Subjective: Patient seen and evaluated. Patient doing well. Progressing with therapy. Pain controlled. No new complaints or issues at this time. Vitals/I&O/Wt Last Vital Signs Temp 99.1 F 05/07/23 11:33 Pulse 67 05/07/23 11:33 Resp 16 05/07/23 11:33 BP 104/65 05/07/23 11:33 Pulse Ox 95 05/07/23 11:33 O2 Del Method Room Air 05/07/23 11:33 O2 Flow Rate 1.5 05/06/23 04:00 05/06/23 05/07/23 05/07/23 22:59 06:59 14:59 Intake Total 1290.000 / 2200.000 480 / 480 Output Total 1000 / 1220 100 / 100 Balance 1290.000 / 1980.000 -1000 / 980.000 380 / 380 Physical Exam Narrative: Examination right lower extremity toes warm well-perfused brisk cap refill less than 2 seconds compartments are soft compressible normal postoperative swelling and ecchymosis around the right femur. Dressings are on in place to clean dry and intact. Patient endorses sensations intact light touch distally able to wiggle toes as well as plantarflex and dorsiflex ankle. pain noted with knee range of motion. Urinary Catheter Management: [place]: Cath Placed During This Visit: yes, but has since been removed by the nurse Reason for Continuing Indwelling Catheter: Decision to DC Catheter Urinary Catheter Date of Insertion: 05/04/23 Urinary Catheter Time of Insertion: 22:39 Date Urinary Catheter Removed: 05/07/23 Time Urinary Catheter Discontinued: 04:05 Data 05/07/23 04:59 05/07/23 04:59 Micro: Microbiology 05/05/23 14:35 Urine Culture - Preliminary Urine Catheterized A&P Assessment and plan (1) Femoral distal fracture: Qualifiers: Encounter type: initial encounter Fracture morphology: other fracture Fracture type: closed Laterality: right Qualified Code(s): S72.491A - Other fracture of lower end of right femur, initial encounter for closed fracture Plan 30 to 50% partial weightbearing right lower extremity Encourage knee range of motion Ice as needed for pain and swelling PT/OT Pain control DVT prophylaxis Postoperative antibiotics Internal medicine on board as primary Resume regular diet A.m. labs reviewed Patient stable for discharge from orthopedic standpoint no further intervention required at this time. This point time appropriate discharge instructions as well as pain medication DVT prophylaxis are in patient's discharge instructions and prescription sent. Case management on board and plan for discharge planning likely rehab facility. No further intervention from orthopedic standpoint orthopedic surgery team will sign off patient at this time and follow peripherally if there is any questions pertaining to patient's care for free to contact myself or the orthopedic office. Patient to follow-up in the orthopedic office in 2 weeks upon discharge. Attestations Medical Necessity Statement*: Ongoing care right distal femur fracture Coding Level of Care Code Acute Code for [facility] Diagnoses Femoral distal fracture S72.491A Encounter type: initial encounter Fracture morphology: other fracture Fracture type: closed Laterality: right Time Spent (min) 25
[2023-08-26 15:42] LABS: Lacosamide (Vimpat) 6.5
== END 2023-05-07 15:57 | disposition skilled nursing facility (03) | DRG 481 ==
LOC: ER 20:20 → MEDSURG 20:57
PROVIDERS: Student in an Organized Health Care Education/Training Program; Admitting Provider Internal Medicine; Emergency Provider Nurse Practitioner Family; PCP Nurse Practitioner; Visit Provider Family Medicine
PROC: 0QSB04Z Reposition Right Lower Femur with Internal Fixation Device, Open Approach (ICD-10-PCS; principal; 2023-05-05 19:20)
DX: S72.451A Displaced supracondylar fracture without intracondylar extension of lower end of right femur, initial encounter for closed fracture (principal); G40.209 Localization-related (focal) (partial) symptomatic epilepsy and epileptic syndromes with complex partial seizures, not intractable, without status epilepticus; Z68.41 Body mass index [BMI] 40.0-44.9, adult; K59.09 Other constipation; Z86.16 Personal history of COVID-19; Z66 Do not resuscitate; E78.5 Hyperlipidemia, unspecified; I10 Essential (primary) hypertension; K21.9 Gastro-esophageal reflux disease without esophagitis; M81.0 Age-related osteoporosis without current pathological fracture; J44.9 Chronic obstructive pulmonary disease, unspecified; Z79.82 Long term (current) use of aspirin; E66.01 Morbid (severe) obesity due to excess calories; D50.9 Iron deficiency anemia, unspecified; H10.9 Unspecified conjunctivitis; R51.9 Headache, unspecified; M17.11 Unilateral primary osteoarthritis, right knee; W18.2XXA Fall in (into) shower or empty bathtub, initial encounter; Y93.F1 Activity, caregiving, bathing; Y92.121 Bathroom in nursing home as the place of occurrence of the external cause
CPT/HCPCS: 36415; 36416; 51702; 70450; 71045; 73502; 73552; 73562; 73700; 76000; 80048; 80053; 80156; 80201; 80299; 81001; 82962; 83605; 83735; 84443; 85025; 86850; 86900; 87086; 93005; 96372; 97162; 97167; 97530; 97535; 99285; C1713 ×2; C9113; J0131; J0690; J1100; J1170; J1650; J1885; J2270; J2405; J2704; J2710; J3010; J3490; J7030; P9045

== ENCOUNTER → 2023-05-18 14:07 | Outpatient (BNVA) | payer MEDICARE, MEDICAID, SELFPAY | PROVIDERS: PCP Nurse Practitioner; Visit Provider Student in an Organized Health Care Education/Training Program | DX: Z98.890 Other specified postprocedural states (principal); S72.491A Other fracture of lower end of right femur, initial encounter for closed fracture; X58.XXXA Exposure to other specified factors, initial encounter | CPT/HCPCS: 73552; 99024 ==

== ENCOUNTER → 2023-06-18 13:49 | Outpatient (BNVA) | payer OTHER, MEDICAID, SELFPAY | PROVIDERS: PCP Nurse Practitioner; Visit Provider Student in an Organized Health Care Education/Training Program | DX: Z48.89 Encounter for other specified surgical aftercare (principal); S72.401D Unspecified fracture of lower end of right femur, subsequent encounter for closed fracture with routine healing; X58.XXXD Exposure to other specified factors, subsequent encounter | CPT/HCPCS: 73552; 99024 ==

== ENCOUNTER → 2023-07-21 14:15 | Outpatient (BNVA) | payer MEDICARE, MEDICAID, SELFPAY | PROVIDERS: PCP Nurse Practitioner; Visit Provider Student in an Organized Health Care Education/Training Program | DX: Z48.89 Encounter for other specified surgical aftercare (principal); M17.11 Unilateral primary osteoarthritis, right knee; Z46.89 Encounter for fitting and adjustment of other specified devices; Z98.890 Other specified postprocedural states; Z87.81 Personal history of (healed) traumatic fracture | CPT/HCPCS: 73552; 97760; 99213; L1851 ==

== ENCOUNTER 2023-07-21 16:51 | Outpatient (CLI) | payer MEDICARE, MEDICAID, SELFPAY | END 2023-07-21 16:52 | disposition home or self-care (01) | LOC: SPT 16:51 | PROVIDERS: PCP Nurse Practitioner; Visit Provider Student in an Organized Health Care Education/Training Program | DX: Z46.89 Encounter for fitting and adjustment of other specified devices (principal); Z98.890 Other specified postprocedural states; Z87.81 Personal history of (healed) traumatic fracture; M17.11 Unilateral primary osteoarthritis, right knee | CPT/HCPCS: 97760; 99213; L1851 ==

== ENCOUNTER → 2023-10-29 13:39 | Outpatient (BNVA) | payer MEDICARE, MEDICAID, SELFPAY | PROVIDERS: PCP Nurse Practitioner; Visit Provider Physician Assistant | DX: M17.11 Unilateral primary osteoarthritis, right knee (principal); Z98.890 Other specified postprocedural states; Z87.81 Personal history of (healed) traumatic fracture; R29.6 Repeated falls | CPT/HCPCS: 73552; 99213 ==

== ENCOUNTER → 2023-11-26 14:43 | Outpatient (BNVA) | payer MEDICARE, MEDICAID, SELFPAY | PROVIDERS: PCP Nurse Practitioner; Visit Provider Podiatrist Foot & Ankle Surgery | DX: L60.0 Ingrowing nail (principal); L03.031 Cellulitis of right toe | CPT/HCPCS: 99203 ==

== ENCOUNTER → 2023-12-03 13:57 | Outpatient (BNVA) | payer MEDICARE, MEDICAID, SELFPAY | PROVIDERS: PCP Nurse Practitioner; Visit Provider Podiatrist Foot & Ankle Surgery | DX: L60.0 Ingrowing nail (principal); L03.031 Cellulitis of right toe | CPT/HCPCS: 99213 ==

== ENCOUNTER → 2023-12-17 10:27 | Outpatient (BNVA) | payer MEDICARE, MEDICAID, SELFPAY | PROVIDERS: PCP Nurse Practitioner; Visit Provider Podiatrist Foot & Ankle Surgery | DX: L60.0 Ingrowing nail; L03.031 Cellulitis of right toe | CPT/HCPCS: 99213 ==

== ENCOUNTER → 2023-12-25 10:40 | Outpatient (BNVA) | payer MEDICARE, MEDICAID, SELFPAY | PROVIDERS: PCP Nurse Practitioner; Visit Provider Podiatrist Foot & Ankle Surgery | DX: L60.0 Ingrowing nail; L03.031 Cellulitis of right toe | CPT/HCPCS: 99213 ==

== ENCOUNTER → 2024-01-22 10:10 | Outpatient (BNVA) | payer MEDICARE, MEDICAID, SELFPAY | PROVIDERS: PCP Internal Medicine; Visit Provider Podiatrist Foot & Ankle Surgery | DX: L60.3 Nail dystrophy (principal); I73.9 Peripheral vascular disease, unspecified | CPT/HCPCS: 11721 ==

== ENCOUNTER → 2024-01-26 12:55 | Outpatient (BNVA) | payer MEDICARE, MEDICAID, SELFPAY | PROVIDERS: PCP Internal Medicine; Visit Provider Physician Assistant | DX: Z98.890 Other specified postprocedural states (principal); Z87.81 Personal history of (healed) traumatic fracture; M17.0 Bilateral primary osteoarthritis of knee | CPT/HCPCS: 20610; 73552; 73562; 99213; J3301 ==

== ENCOUNTER → 2024-03-22 12:40 | Outpatient (BNVA) | payer MEDICARE, MEDICAID, SELFPAY | PROVIDERS: PCP Internal Medicine; Visit Provider Podiatrist Foot & Ankle Surgery | DX: L60.3 Nail dystrophy (principal); I73.9 Peripheral vascular disease, unspecified; L60.0 Ingrowing nail | CPT/HCPCS: 11721; 99213 ==

== ENCOUNTER → 2024-04-05 13:03 | Outpatient (BNVA) | payer MEDICARE, MEDICAID, SELFPAY | PROVIDERS: PCP Internal Medicine; Visit Provider Podiatrist Foot & Ankle Surgery | DX: L60.3 Nail dystrophy (principal); I73.9 Peripheral vascular disease, unspecified; L60.0 Ingrowing nail | CPT/HCPCS: 99213 ==

== ENCOUNTER → 2024-06-07 13:23 | Outpatient (BNVA) | payer MEDICARE, MEDICAID, SELFPAY | PROVIDERS: PCP Internal Medicine; Visit Provider Student in an Organized Health Care Education/Training Program | DX: Z98.890 Other specified postprocedural states (principal); M17.0 Bilateral primary osteoarthritis of knee | CPT/HCPCS: 20610; 73552; 73560; 99213; J3301 ==

== ENCOUNTER → 2024-06-09 14:35 | Outpatient (BNVA) | payer MEDICARE, MEDICAID, SELFPAY | PROVIDERS: PCP Internal Medicine; Visit Provider Podiatrist Foot & Ankle Surgery | DX: L60.3 Nail dystrophy (principal); I73.9 Peripheral vascular disease, unspecified; L60.0 Ingrowing nail | CPT/HCPCS: 11721 ==

== ENCOUNTER 2024-07-09 01:01 | Emergency (ER) | payer MEDICARE, MEDICAID, SELFPAY ==
[2024-07-09 01:01] VITALS: BP 164/73; PULSE 75; RESP 16; TEMP 37.1; O2SAT 95; BMI 30.9
--- NOTE | 2024-07-09 01:08 | XRR_ITS ---
PROCEDURE INFORMATION: Exam: XR Chest Exam date and time: 07/09/2024 1:15 AM Age: 84 years old Clinical indication: Other: Syncope; Patient HX: EMS arrival from correction for syncopal episode TECHNIQUE: Imaging protocol: Radiologic exam of the chest. Views: 1 view. COMPARISON: CR XR chest 1V portable [id number] 05/04/2023 8:13 PM FINDINGS: Limitations: Patient is rotated to the right. Soft tissues of the chin overlies the lung apices. Lungs: Unremarkable. No consolidation. Pleural spaces: Unremarkable. No pleural effusion. No pneumothorax. Heart/Mediastinum: Stable cardiomegaly. Suspected hiatal hernia. Vasculature: Atherosclerotic aortic plaques. Bones/joints: No acute findings. XR/XR chest 1V portable [id number] IMPRESSION: 1. No definite acute cardiopulmonary findings. 2. Stable cardiomegaly.
--- NOTE | 2024-07-09 01:09 | ECG_ITS ---
[facility] Test Date: 2024-07-09 Pat Name: Tennille James Department: Room: Gender: Female Anesthesia Technician: : 1940 Requested By: Stanford Gallardo Order Number: [id number] Susan MD: Tanner Salazar M.D. Measurements Intervals [place] Rate: 67 P: 67 DC: 202 QRS: 7 QRSD: 94 T: 31 QT: 405 QTc: 430 Interpretive Statements SINUS RHYTHM WITH SINUS ARRHYTHMIA NONSPECIFIC T-WAVE ABNORMALITY Compared to ECG 07/09/2024 02:26:46 No significant changes Electronically Signed On 07-09-2024 7:59:12 CDT by Tanner Salazar M.D. [id number]
[2024-07-09 01:32] LABS: Basophils % 0.2 %; Eosinophils % 0.3 %; Hematocrit 49.7 % (36-47); Lymphocytes # 0.7 10^3/uL (0.8-4.8); Lymphocytes % 7.7 %; Mean Corpuscular HGB Conc 30.6 g/dL (30-55); Mean Corpuscular Hemoglobin 30.6 pg (27-33); Mean Corpuscular Volume 100.2 fl (85-98); Mean Platelet Volume 9.1 fL (7.4-10.4); Monocytes # 1.3 10^3/uL (0.2-0.9); Monocytes % 13.7 %; Neutrophils # 7.42 10^3/uL (1.8-7.7); Neutrophils % 77.8 %; Nucleated Red Blood Cells % 0 %; Platelet Count 207 10^3/cmm (157-399); Red Blood Count 4.96 10^6/uL (3.85-5.65); Red Cell Distribution Width 14.4 % (12.1-15.1); White Blood Count 9.55 10^3/uL (3.29-11.43)
[2024-07-09 01:37] VITALS: PULSE 70; RESP 23; O2SAT 98
--- NOTE | 2024-07-09 01:48 | ED_ITS ---
HPI - Syncope 2 General: Chief Complaint: Syncope Stated Complaint: Hypotensive Time Seen by Provider: 07/09/24 01:02 History of Present Illness: Patient presents to the ER with complaints of lightheaded dizziness and possible syncopal episode. Per nursing she stood up and was ambulating to the restroom when she got lightheaded dizzy and passed out for about 30 seconds. She did quickly come back to normal mentation. Reportedly her blood pressure was down to 50/30 at the detention however upon arrival here her blood pressure was 164/73. Patient does also complain of some right lower quadrant abdominal pain for the last 24 hours. Related Data Home Medications Medication Instructions Recorded Confirmed acetaminophen 160 mg chewable 160 mg PO Q4H PRN Pain 12/28/19 06/09/24 tablet albuterol sulfate 90 mcg/actuation 1 inh inhalation Q4H PRN Shortness 12/28/19 06/09/24 aerosol inhaler ([employer] HFA) Of Breath aspirin 81 mg chewable tablet 81 mg PO DAILY 12/28/19 06/09/24 (Ranjeet Chewable Low Dose Aspirin) bisacodyl 10 mg rectal suppository 10 mg NM DAILY PRN Constipation 12/28/19 06/09/24 carbamazepine 200 mg tablet 200 mg PO BID 12/28/19 06/09/24 chlorhexidine gluconate 0.12 % 15 ml buccal BID 12/28/19 06/09/24 mouthwash dextromethorphan-guaifenesin 10 5 ml PO Q4H PRN Cough 12/28/19 06/09/24 mg-100 mg/5 mL oral liquid (Diabetic Tussin DM) diphenhydramine HCl 25 mg capsule 25 mg PO Q6H PRN Allergy Symptoms 12/28/19 06/09/24 (Allergy (diphenhydramine)) docusate sodium 100 mg capsule 100 mg PO BID 12/28/19 06/09/24 (DOK) epinephrine 0.3 mg/0.3 mL 0.3 ml IM ONCE PRN Allergic 12/28/19 06/09/24 injection, auto-injector (EpiPen Reaction 2-Ortega) esomeprazole magnesium 40 mg 40 mg PO DAILY 12/28/19 06/09/24 capsule,delayed release ferrous sulfate 325 mg (65 mg 325 mg PO DAILY 12/28/19 06/09/24 iron) tablet losartan 50 mg tablet 50 mg PO DAILY 12/28/19 06/09/24 lovastatin 20 mg tablet 20 mg PO DAILY 12/28/19 06/09/24 metoprolol tartrate 50 mg tablet 50 mg PO BID 12/28/19 06/09/24 multivitamin,vr-eqlb-eiwlxvup 27 1 tab PO DAILY 12/28/19 06/09/24 mg-0.4 mg tablet (Therems-M) nitroglycerin 0.4 mg sublingual 0.4 mg sublingual Q5M PRN Chest 12/28/19 06/09/24 tablet (Nitrostat) Pain ondansetron HCl 4 mg tablet 4 mg PO Q4H PRN Nausea 12/28/19 06/09/24 potassium chloride 10 mEq 10 meq PO BID 12/28/19 06/09/24 capsule,extended release risperidone 0.25 mg tablet 0.25 mg PO BID 12/28/19 06/09/24 sennosides 8.6 mg capsule (senna) 8.6 mg PO BID 12/28/19 06/09/24 topiramate 50 mg tablet 50 mg PO BID 12/28/19 06/09/24 calcium carbonate 500 mg-vitamin 1 tab PO DAILY 05/04/23 06/09/24 D3 5 mcg (200 unit) tablet (Oysco 500/D) arformoterol 15 mcg/2 mL solution 2 ml inhalation QAM 05/05/23 06/09/24 for nebulization (Brovana) camphor 4.7 %-eucalyptus oil 1.2 1 applic topical BID PRN Cough 05/05/23 06/09/24 %-menthol 2.6 % topical ointment (Vicks Vaporub) ipratropium 0.5 mg-albuterol 3 mg 3 ml inhalation Q6H PRN Shortness 05/05/23 06/09/24 (2.5 mg base)/3 mL nebulization Of Breath soln nystatin 100,000 unit/gram topical 1 applic topical BID 05/05/23 06/09/24 powder (Nyamyc) sennosides 8.6 mg tablet (senna) 8.6 mg PO BEDTIME PRN Constipation 05/05/23 06/09/24 Previous Rx's Medication Instructions Recorded clonazepam 0.5 mg tablet (Klonopin) 0.5 mg PO BID PRN when seizure 04/01/21 pending #10 tabs trazodone 50 mg tablet 50 mg PO .at bedtime #30 tabs 04/01/21 DME: Walker #1 ea 09/21/22 lacosamide 200 mg tablet (Vimpat) 200 mg PO BID #60 tabs 01/25/23 furosemide 20 mg tablet 20 mg PO DAILY 30 days #30 tabs 05/07/23 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 #1 ea 07/21/23 cephalexin 500 mg capsule 500 mg PO Q8H #21 caps 03/22/24 mupirocin 2 % topical ointment 1 applic topical BID #22 grams 03/22/24 Allergies Allergy/AdvReac Type Severity Reaction Status Date / Time lisinopril Allergy ALGY-Anaphy Verified 06/09/24 15:03 laxis Review of Systems 2 General: Reports: 10 or more systems reviewed and unremarkable except in HPI and below PFSH ED 2 PFSH: Medical History DNR no code (do not resuscitate) COVID-19 Low serum iron Obesity, morbid, BMI 40.0-49.9 Vitamin D deficiency Urinary incontinence in female Osteoporosis Lives in assisted living facility GERD (gastroesophageal reflux disease) Essential (primary) hypertension Dyslipidemia DJD (degenerative joint disease) COPD mixed type Chronic constipation Complex partial epilepsy Surgical History History of total hysterectomy Family History Mother Diabetes Heart disease Family/Other Diabetes Aunt Father Heart disease Social History Smoking and tobacco/nicotine status: never used tobacco/nicotine Second hand smoke exposure: No Substance/Drug Use: never Lives independently: No Housing: Assisted Living Facility Marital status: Current occupational status: retired Physical Exam 2 Const: COMMON NORMALS: no acute distress, average body habitus, patient oriented x3, no limitations, healthy appearing, alert and well nourished HENMT: COMMON NORMALS: normocephalic, atraumatic, hearing grossly normal bilaterally, external ears normal, Normal external nose present and moist oral mucous membranes HEAD & SCALP: normocephalic and atraumatic NOSE: Normal external nose present EXTERNAL EAR: Yes external ears normal Neck/C-Spine: COMMON NORMALS: full ROM, no lymphadenopathy, supple, no meningeal signs, no JVD and Thyroid normal THYROID: Thyroid normal Chest: COMMONS NORMALS: normal inspection of the chest and normal palpation of entire chest wall Resp: COMMON NORMALS: normal respiratory effort, No retractions, No use of accessory muscles and clear to auscultation bilaterally AUSCULTATION: clear to auscultation bilaterally Cardio: COMMON NORMALS: no JVD, regular rate, regular rhythm, S1 normal heart sound present, S2 normal heart sound present, No gallops present (Cardio), No clicks present (Cardio), No murmurs present (Cardio) and No rub (Cardio) R ATE: regular rate RHYTHM: regular rhythm HEART SOUNDS: S1 normal heart sound present and S2 normal heart sound present GI: COMMON NORMALS: Normal to inspection, nondistended, normoactive bowel sounds present, Soft to palpation, non-tender, No hepatosplenomegaly present and no masses PALPATION: Yes Soft to palpation and Yes No hepatosplenomegaly present Neuro: COMMON NORMALS: patient oriented x3 SENSORIUM/ORIENTATION: Yes alert MENINGEAL SIGNS: Yes no meningeal signs Course 2 Vital Signs: Vital signs: Vital Signs Temperature 98.7 F 07/09/24 01:01 Pulse Rate 65 07/09/24 04:00 Respiratory Rate 20 H 07/09/24 04:00 Blood Pressure 130/59 07/09/24 04:00 Pulse Oximetry 96 07/09/24 04:00 Oxygen Delivery Me thod Room Air 07/09/24 04:00 MDM - Syncope Medical Decision Making Lab work was obtained CBC was benign, CMP showed mildly elevated anion gap at 22, BUN/creatinine 31 and 1.0, osmolality 309, initial troponin was 69, 2-hour troponin was 55, EKGs were unremarkable, upon patient trying to give us urine sample she defecated and this on 2 occasions which did not show any paolo blood or black tarry stools. Patient was given a liter normal saline, and she says she was feeling better. Lab Data 07/09/24 01:28 07/09/24 01:28 Radiology Impressions Chest X-Ray 07/09/24 01:08 IMPRESSION: 1. No definite acute cardiopulmonary findings. 2. Stable cardiomegaly. Laboratory Results WBC 9.55 10^3/uL (3.29-11.43) 07/09/24: RBC 4.96 10^6/uL (3.85-5.65) 07/09/24 01:28 Hgb 15.20 g/dL (11.27-16.99) 07/09/24 01:28 Hct 49.7 % (36-47) H 07/09/24 01: MCV 100.2 fl (85-98) H 07/09/24 01:28 MCH 30.6 pg (27-33) 07/09/24 01: MCHC 30.6 g/dL (30-55) 07/09/24: RDW 14.4 % (12.1-15.1) 07/09/24 01: Plt Count 207 10^3/cmm (157-399) 07/09/24 01: MPV 9.1 fL (7.4-10.4) 07/09/24 01: Neut % (Auto) 77.8 % 07/09/24 01: Lymph % (Auto) 7.7 % 07/09/24: [place] % (Auto) 13.7 % 07/09/24: Eos % (Auto) 0.3 % 07/09/24: Baso % (Auto) 0.2 % 07/09/24: Neut # (Auto) 7.42 10^3/uL (1.8-7.7) 07/09/24: Lymph # (Auto) 0.7 10^3/uL (0.8-4.8) L 07/09/24 01:28 [place] # (Auto) 1.3 10^3/uL (0.2-0.9) H 07/09/24: Eos # (Auto) 0.0 10^3/uL (0.0-0.8) 07/09/24 01: Baso # (Auto) 0.0 10^3/uL (0.0-0.1) 07/09/24 01:28 Nucleated RBC % (auto) 0 % 07/09/24 01:28 Nucleated RBCs # 0.0 /100WBC 07/09/24 01:28 Sodium 145 mmol/L (136-145) 07/09/24 01:28 Potassium 4.0 mmol/L (3.5-5.1) 07/09/24 01:28 Chloride 112 mmol/L (98-107) H 07/09/24 01:28 Carbon Dioxide 15 mmol/L (22-29) L 07/09/24 01:28 Anion Gap 22.0 (5-19) H 07/09/24 01:28 BUN 31 mg/dL (8-23) H 07/09/24 01:28 Creatinine 1.0 mg/dL (0.5-0.9) H 07/09/24 01:28 GFR Calculation Not Reportable 07/09/24 01:28 Glucose 148 mg/dL (65-115) H 07/09/24 01:28 Calculated Osmolality 309 mOsm/kg (285-295) H 07/09/24 01:28 Calcium 8.5 mg/dL (8.5-10.5) 07/09/24 01:28 Total Bilirubin 0.3 mg/dL (0.15-1.2) 07/09/24 01:28 AST 18 U/L (0-32) 07/09/24 01:28 ALT 12 U/L (0-33) 07/09/24 01:28 Alkaline Phosphatase 163 U/L (35-105) H 07/09/24 01:28 Troponin T Baseline 69 ng/L (0-10) H 07/09/24 01:28 Troponin T 120 Minute 55.85 ng/L (0-10) H 07/09/24 03:22 Delta Troponin T -13.15 ABS# (0-10) L 07/09/24 03:22 Total Protein 7.3 g/dL (6.6-8.7) 07/09/24 01:28 Albumin 3.7 g/dL (3.5-5.2) 07/09/24 01:28 Globulin 3.6 g/dL (1.3-4.6) 07/09/24 01:28 All radiology interpretation(s) finalized by discharge Discharge Plan Discharge Patient Disposition: Home Clinical Impression: Syncope Qualifiers: Syncope type: unspecified Qualified Code(s): R55 - Syncope and collapse Condition: Stable Prescriptions: No Action aspirin [Ranjeet Chewable Aspirin] 81 mg tablet,chewable 81 mg PO DAILY carbamazepine 200 mg tablet 200 mg PO BID docusate sodium [DOK] 100 mg capsule 100 mg PO BID esomeprazole magnesium 40 mg capsule,delayed release(DR/EC) 40 mg PO DAILY losartan 50 mg tablet 50 mg PO DAILY lovastatin 20 mg tablet 20 mg PO DAILY metoprolol tartrate 50 mg tablet 50 mg PO BID risperidone 0.25 mg tablet 0.25 mg PO BID senna 8.6 mg capsule 8.6 mg PO BID Therems-M 27-0.4 mg tablet 1 tab PO DAILY topiramate 50 mg tablet 50 mg PO BID acetaminophen 160 mg tablet,chewable 160 mg PO Q4H PRN (Reason: Pain) ondansetron HCl 4 mg tablet 4 mg PO Q4H PRN (Reason: Nausea) chlorhexidine gluconate 0.12 % mouthwash 15 ml BUCCAL BID ferrous sulfate 325 mg (65 mg iron) tablet 325 mg PO DAILY potassium chloride 10 mEq capsule, extended release 10 meq PO BID bisacodyl 10 mg suppository 10 mg NM DAILY PRN (Reason: Constipation) dextromethorphan-guaifenesin [Diabetic Tussin DM] 10-100 mg/5 mL liquid 5 ml PO Q4H PRN (Reason: Cough) diphenhydramine HCl [Allergy (diphenhydramine)] 25 mg capsule 25 mg PO Q6H PRN (Reason: Allergy Symptoms) Rx Instructions: 4 - 6 HRS NEEDED epinephrine [EpiPen 2-Ortega] 0.3 mg/0.3 mL auto-injector 0.3 ml IM ONCE PRN (Reason: Allergic Reaction) nitroglycerin [Nitrostat] 0.4 mg tablet, sublingual 0.4 mg SUBLINGUAL Q5M PRN (Reason: Chest Pain) albuterol sulfate [Ventolin HFA] 90 mcg/actuation HFA aerosol inhaler 1 inh INHALATION Q4H PRN (Reason: Shortness Of Breath) (DME) DME: Walker Unit See Rx Instructions .ROUTE .MEDSUPPLY Qty: 1 0RF Rx Instructions: Code E0143 and E0156 walker 4 wheels and seat lacosamide [Vimpat] 200 mg tablet 200 mg PO BID Qty: 60 5RF (DME) 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 See Rx Instructions .Route .MEDSUPPLY Qty: 1 0RF Rx Instructions: As directed cephalexin 500 mg capsule 500 mg PO Q8H Qty: 21 0RF mupirocin 2 % ointment 1 applic topical BID Qty: 22 0RF clonazepam [Klonopin] 0.5 mg tablet 0.5 mg PO BID PRN (Reason: when seizure pending) Qty: 10 0RF trazodone 50 mg tablet 50 mg PO .at bedtime Qty: 30 2RF calcium carbonate-vitamin D3 [Oysco 500/D] 500 mg-5 mcg (200 unit) Tablet 1 tab PO DAILY senna 8.6 mg Tablet 8.6 mg PO BEDTIME PRN (Reason: Constipation) ipratropium-albuterol 0.5 mg-3 mg(2.5 mg base)/3 mL Solution For Nebulization 3 ml INHALATION Q6H PRN (Reason: Shortness Of Breath) Nyamyc 100,000 unit/gram Powder 1 applic TOPICAL BID Brovana 15 mcg/2 mL Solution For Nebulization 2 ml INHALATION QAM Vicks Vaporub 4.7-1.2-2.6 % Ointment 1 applic TOPICAL BID PRN (Reason: Cough) furosemide 20 mg tablet 20 mg PO DAILY 30 Days Qty: 30 0RF Discharge Orders: Discharge ED (Routine); Ordered 07/09/24 Ordered By: Stanford Gallardo Referrals: Chavez Araujo MD [Primary Care Provider] - 1 week Patient Instructions: Syncope Activity Restrictions/Additional Instructions: Please push plenty clear fluids. Your blood work showed you may have a little bit of dehydration which is can make your syncope lightheaded or dizziness worse. If your symptoms worsen please feel free to return to the ER or follow- up with your family proximal physician within next 7 to 10 days for further evaluation and testing. Thank you for choosing [facility] for your healthcare needs today. Please realize that you were seen in the emergency department and that we are providing you with an emergency medical screening exam and this may not be a complete and all exclusive of all testing and/or medical workup we may need to determine your element or severity of your illness. It is very important that you follow-up as instructed with your primary care provider or specialist for the additional evaluation and to discuss your medical treatment plan. You may return to the emergency department should you have concerns or if your condition changes or worsens in any way. Coding Level of Care Code ED Sandwich Hand for Charli Novoa
[2024-07-09 02:01] LABS: Troponin(5th) Baseline 69 ng/L (0-10)
[2024-07-09 02:05] LABS: Alanine Aminotransferase 12 U/L (0-33); Albumin Level 3.7 g/dL (3.5-5.2); Alkaline Phosphatase 163 U/L (35-105); Blood Urea Nitrogen 31 mg/dL (8-23); Calcium 8.5 mg/dL (8.5-10.5); Carbon Dioxide 15 mmol/L (22-29); Chloride 112 mmol/L (98-107); Creatinine Clr Calc Pharmacy 42.5157; Globulin 3.6 g/dL (1.3-4.6); Glucose 148 mg/dL (65-115); Osmolality Calculated 309 mOsm/kg (285-295); Sodium 145 mmol/L (136-145); Total Bilirubin 0.3 mg/dL (0.15-1.2); Total Protein 7.3 g/dL (6.6-8.7)
[2024-07-09 02:10] LABS: Aspartate Amino Transferase 18 U/L (0-32)
[2024-07-09 02:37] VITALS: PULSE 68; RESP 20; O2SAT 98
[2024-07-09] MEDS: sodium chloride 0.9% 1,000 ML 999 ML IV (02:55)
--- NOTE | 2024-07-09 03:09 | ECG_ITS ---
[facility] Test Date: 2024-07-09 Pat Name: Tennille James Department: Room: Gender: Female Primary Care Sales Representative: : 1940 Requested By: Stanford Gallardo Order Number: [id number] Susan MD: Tanner Salazar M.D. Measurements Intervals [place] Rate: 68 P: 50 MN: 203 QRS: -4 QRSD: 98 T: 36 QT: 398 QTc: 424 Interpretive Statements SINUS RHYTHM NONSPECIFIC T-WAVE ABNORMALITY Compared to ECG 05/04/2023 20:41:51 T-wave abnormality now present Electronically Signed On 07-09-2024 7:59:55 CDT by Tanner Salazar M.D. [id number]
[2024-07-09 03:37] VITALS: BP 130/59; PULSE 70; RESP 21; O2SAT 96
[2024-07-09 04:00] VITALS: BP 130/59; PULSE 65; RESP 20; O2SAT 96
[2024-07-09 04:10] LABS: Troponin 5 2HR 55.85 ng/L (0-10); Troponin 5 2HR Delta -13.15 ABS# (0-10)
[2024-07-09 06:09] VITALS: BP 135/69; PULSE 63; RESP 20; O2SAT 96
== END 2024-07-09 12:12 | disposition home or self-care (01) ==
PROVIDERS: Emergency Provider Emergency Medicine; PCP Internal Medicine
DX: R55 Syncope and collapse (principal); Z79.82 Long term (current) use of aspirin; I10 Essential (primary) hypertension; E78.5 Hyperlipidemia, unspecified; J44.9 Chronic obstructive pulmonary disease, unspecified
CPT/HCPCS: 36415; 71045; 80053; 84484; 85025; 93005; 99285; J7030

== ENCOUNTER → 2024-08-05 09:19 | Outpatient (BNVA) | payer MEDICARE, MEDICAID, SELFPAY | PROVIDERS: PCP Internal Medicine; Visit Provider Student in an Organized Health Care Education/Training Program | DX: Z98.890 Other specified postprocedural states (principal); Z87.81 Personal history of (healed) traumatic fracture; M17.11 Unilateral primary osteoarthritis, right knee | CPT/HCPCS: 73560; 99213 ==

== ENCOUNTER → 2024-08-11 14:31 | Outpatient (BNVA) | payer MEDICARE, MEDICAID, SELFPAY | PROVIDERS: PCP Internal Medicine; Visit Provider Podiatrist Foot & Ankle Surgery | DX: L60.3 Nail dystrophy (principal); I73.9 Peripheral vascular disease, unspecified; L60.0 Ingrowing nail | CPT/HCPCS: 11721 ==

== ENCOUNTER 2024-09-29 12:53 | Outpatient (CLI) | payer MEDICARE, MEDICAID, SELFPAY | END 2024-09-29 12:54 | disposition home or self-care (01) | LOC: SPT 12:54 | PROVIDERS: Visit Provider Student in an Organized Health Care Education/Training Program | DX: Z46.89 Encounter for fitting and adjustment of other specified devices (principal); M17.11 Unilateral primary osteoarthritis, right knee | CPT/HCPCS: 20610; 97760; L1812 ==

== ENCOUNTER → 2024-10-13 14:15 | Outpatient (BNVA) | payer MEDICARE, MEDICAID, SELFPAY | PROVIDERS: PCP Internal Medicine; Visit Provider Podiatrist Foot & Ankle Surgery | DX: L60.0 Ingrowing nail (principal); L60.8 Other nail disorders; L60.3 Nail dystrophy; I73.9 Peripheral vascular disease, unspecified | CPT/HCPCS: 11720; 99213 ==

== ENCOUNTER 2024-10-15 09:09 | Emergency (ER) | payer MEDICARE, MEDICAID, SELFPAY ==
[2024-10-15 09:10] VITALS: BP 156/86; PULSE 66; RESP 20; TEMP 36.6; O2SAT 96; BMI 30.9
--- NOTE | 2024-10-15 09:12 | XRR_ITS ---
PROCEDURE INFORMATION: Exam: XR Right Knee Exam date and time: 10/15/2024 9:32 AM Age: 84 years old Clinical indication: Injury or trauma; Fall; Blunt trauma; Knee; Prior surgery; Surgery date: 6+ months; Surgery type: Right femur TECHNIQUE: Imaging protocol: Radiologic exam of the right knee. Views: 3 views. COMPARISON: CR XR knee RT 1-2V [id number] 08/05/2024 9:20 AM FINDINGS: Bones/joints: No acute fracture or malaligment. Intramedullary nail with interlocking screws in the distal femur. No evidence of hardware complication. Moderate to severe tricompartmental joint space narrowing and moderate osteophyte formation, most prominently in the lateral compartment, with associated subchondral sclerosis. No distinct joint effusion. No soft tissue abnormality. Soft tissues: See Bones/joints finding. XR/XR knee RT 3V* [id number] IMPRESSION: 1. No acute fracture or malaligment. 2. Moderate to severe right knee osteoarthritis.
--- NOTE | 2024-10-15 09:18 | ED_ITS ---
HPI - Fall General: Chief Complaint: Fall Stated Complaint: fall , R knee pain Time Seen by Provider: 10/15/24 09:12 Source: patient and EMS Mode of arrival: EMS Limitations: no limitations History of Present Illness: 84-year-old female is here from [facility] states she had fell this morning onto her right knee states that it slightly buckled she had pain in that knee since then with some difficulty ambulating she is laying comfortably currently states her pain is currently 2 out of 10 denies any injuries denies hitting her head. Associated symptoms-after fall: Denies abdominal pain, chest pain, headache(s) or neck pain Related Data Home Medications Medication Instructions Recorded Confirmed acetaminophen 160 mg chewable 160 mg PO Q4H PRN Pain 12/28/19 10/15/24 tablet albuterol sulfate 90 mcg/actuation 1 inh inhalation Q4H PRN Shortness 12/28/19 10/15/24 aerosol inhaler (Ventolin HFA) Of Breath aspirin 81 mg chewable tablet 81 mg PO DAILY 12/28/19 10/15/24 (Ranjeet Chewable Low Dose Aspirin) bisacodyl 10 mg rectal suppository 10 mg MI DAILY PRN Constipation 12/28/19 10/15/24 carbamazepine 200 mg tablet 200 mg PO BID 12/28/19 10/15/24 chlorhexidine gluconate 0.12 % 15 ml buccal BID 12/28/19 10/15/24 mouthwash dextromethorphan-guaifenesin 10 5 ml PO Q4H PRN Cough 12/28/19 10/15/24 mg-100 mg/5 mL oral liquid (Diabetic Tussin DM) diphenhydramine HCl 25 mg capsule 25 mg PO Q6H PRN Allergy Symptoms 12/28/19 10/15/24 (Allergy (diphenhydramine)) epinephrine 0.3 mg/0.3 mL 0.3 ml IM ONCE PRN Allergic 12/28/19 10/15/24 injection, auto-injector (EpiPen Reaction 2-Ortega) ferrous sulfate 325 mg (65 mg 325 mg PO DAILY 12/28/19 10/15/24 iron) tablet losartan 50 mg tablet 50 mg PO DAILY 12/28/19 10/15/24 lovastatin 20 mg tablet 20 mg PO DAILY 12/28/19 10/15/24 metoprolol tartrate 50 mg tablet 50 mg PO BID 12/28/19 10/15/24 nitroglycerin 0.4 mg sublingual 0.4 mg sublingual Q5M PRN Chest 12/28/19 10/15/24 tablet (Nitrostat) Pain ondansetron HCl 4 mg tablet 4 mg PO Q4H PRN Nausea 12/28/19 10/15/24 potassium chloride 10 mEq 10 meq PO BID 12/28/19 10/15/24 capsule,extended release risperidone 0.25 mg tablet 0.25 mg PO BID 12/28/19 10/15/24 topiramate 50 mg tablet 50 mg PO BID 12/28/19 10/15/24 calcium 500 mg (as 1 tab PO DAILY 05/04/23 10/15/24 carbonate)-vitamin D3 5 mcg (200 unit) tablet (Oysco 500/D) arformoterol 15 mcg/2 mL solution 2 ml inhalation QAM 05/05/23 10/15/24 for nebulization (Brovana) camphor 4.7 %-eucalyptus oil 1.2 1 applic topical BID PRN Cough 05/05/23 10/15/24 %-menthol 2.6 % topical ointment (Vicks Vaporub) ipratropium 0.5 mg-albuterol 3 mg 3 ml inhalation Q6H PRN Shortness 05/05/23 10/15/24 (2.5 mg base)/3 mL nebulization Of Breath soln nystatin 100,000 unit/gram topical 1 applic topical BID 05/05/23 10/15/24 powder (Nyamyc) sennosides 8.6 mg tablet (senna) 8.6 mg PO BEDTIME PRN Constipation 05/05/23 10/15/24 pantoprazole 40 mg tablet,delayed 40 mg PO DAILY 08/05/24 10/15/24 release (Protonix) docusate sodium 100 mg capsule 100 mg PO BID 10/15/24 10/15/24 Previous Rx's Medication Instructions Recorded clonazepam 0.5 mg tablet (Klonopin) 0.5 mg PO BID PRN when seizure 04/01/21 pending #10 tabs trazodone 50 mg tablet 50 mg PO .at bedtime #30 tabs 04/01/21 DME: Jaylon #1 ea 09/21/22 lacosamide 200 mg tablet (Vimpat) 200 mg PO BID #60 tabs 01/25/23 furosemide 20 mg tablet 20 mg PO DAILY 30 days #30 tabs 05/07/23 Lateral [employer] Professional Brace #1 ea 07/21/23 Hinged Knee brace #1 ea 09/29/24 mupirocin 2 % topical ointment 1 applic topical BID #15 grams 10/13/24 Allergies Allergy/AdvReac Type Severity Reaction Status Date / Time lisinopril Allergy ALGY-Anaphy Verified 10/13/24 14:38 laxis Review of Systems Const: Denies: fever(s), chills, body aches or change in appetite ENMT: Denies: throat pain or dental pain Card: Denies: chest pain Resp: Denies: dyspnea GI: Denies: abdominal pain, nausea, vomiting or diarrhea Musc: Reports: extremity pain; Denies: neck pain or back pain Skin/Breast: Denies: rash Neuro: Denies: headache(s) PFSH ED PFSH: Medical History DNR no code (do not resuscitate) COVID-19 Low serum iron Obesity, morbid, BMI 40.0-49.9 Vitamin D deficiency Urinary incontinence in female Osteoporosis Lives in assisted living facility GERD (gastroesophageal reflux disease) Essential (primary) hypertension Dyslipidemia DJD (degenerative joint disease) COPD mixed type Chronic constipation Complex partial epilepsy Surgical History History of total hysterectomy Family History Mother Diabetes Heart disease Family/Other Diabetes Aunt Father Heart disease Social History Smoking and tobacco/nicotine status: never used tobacco/nicotine Second hand smoke exposure: No Substance/Drug Use: never Lives independently: No Housing: Assisted Living Facility Marital status: Current occupational status: retired Physical Exam Const: COMMON NORMALS: no acute distress, patient oriented x3 and healthy appearing HENMT: COMMON NORMALS: normocephalic and atraumatic HEAD & SCALP: normocephalic and atraumatic Eye: COMMON NORMALS: Equal, round and reactive pupils present and EOMs intact bilaterally PUPIL: Yes Equal, round and reactive pupils present Neck/C-Spine: COMMON NORMALS: full ROM and supple Chest: COMMONS NORMALS: normal inspection of the chest Resp: COMMON NORMALS: normal respiratory effort Cardio: COMMON NORMALS: regular rate, regular rhythm and No murmurs present ( Cardio) RATE: regular rate RHYTHM: regular rhythm Extremity: NARRATIVE EXTREMITY EXAM: Some slight tenderness to right knee no obvious deformity Neuro: COMMON NORMALS: patient oriented x3, moves all extremities and no focal motor deficits Psych: COMMON NORMALS: mental status grossly normal, Normal thought process present and cooperative THOUGHT PROCESS: Normal thought process present Skin: COMMON NORMALS: no rashes or lesions noted and no wounds GENERAL SKIN EXAM: no rashes or lesions noted Course Vital Signs: Vital signs: Vital Signs Temperature 97.8 F 10/15/24 09:10 Pulse Rate 66 10/15/24 09:10 Respiratory Rate 20 H 10/15/24 09:10 Blood Pressure 156/86 10/15/24 09:10 Pulse Oximetry 96 10/15/24 09:10 Oxygen Delivery Me thod Room Air 10/15/24 09:10 MDM - Fall Medical Decision Making Patient presents here with right knee pain after a fall x-ray shows no fracture we will mobilize she is to weight-bear as tolerated we will discharge back to [facility] with orthopedic follow-up Medical Records I reviewed the patient's medical records. Lab Data Radiology Impressions Knee X-Ray 10/15/24 09:12 IMPRESSION: 1. No acute fracture or malaligment. 2. Moderate to severe right knee osteoarthritis. All radiology interpretation(s) finalized by discharge Discharge Plan Discharge Patient Disposition: Home Clinical Impression: Right knee sprain Condition: Stable Prescriptions: No Action aspirin [Ranjeet Chewable Aspirin] 81 mg tablet,chewable 81 mg PO DAILY carbamazepine 200 mg tablet 200 mg PO BID losartan 50 mg tablet 50 mg PO DAILY lovastatin 20 mg tablet 20 mg PO DAILY metoprolol tartrate 50 mg tablet 50 mg PO BID risperidone 0.25 mg tablet 0.25 mg PO BID topiramate 50 mg tablet 50 mg PO BID acetaminophen 160 mg tablet,chewable 160 mg PO Q4H PRN (Reason: Pain) ondansetron HCl 4 mg tablet 4 mg PO Q4H PRN (Reason: Nausea) chlorhexidine gluconate 0.12 % mouthwash 15 ml BUCCAL BID ferrous sulfate 325 mg (65 mg iron) tablet 325 mg PO DAILY potassium chloride 10 mEq capsule, extended release 10 meq PO BID bisacodyl 10 mg suppository 10 mg MI DAILY PRN (Reason: Constipation) dextromethorphan-guaifenesin [Diabetic Tussin DM] 10-100 mg/5 mL liquid 5 ml PO Q4H PRN (Reason: Cough) diphenhydramine HCl [Allergy (diphenhydramine)] 25 mg capsule 25 mg PO Q6H PRN (Reason: Allergy Symptoms) Rx Instructions: 4 - 6 HRS NEEDED epinephrine [EpiPen 2-Ortega] 0.3 mg/0.3 mL auto-injector 0.3 ml IM ONCE PRN (Reason: Allergic Reaction) nitroglycerin [Nitrostat] 0.4 mg tablet, sublingual 0.4 mg SUBLINGUAL Q5M PRN (Reason: Chest Pain) albuterol sulfate [Ventolin HFA] 90 mcg/actuation HFA aerosol inhaler 1 inh INHALATION Q4H PRN (Reason: Shortness Of Breath) (DME) DME: Walker Unit See Rx Instructions .ROUTE .MEDSUPPLY Qty: 1 0RF Rx Instructions: Code E0143 and E0156 walker 4 wheels and seat lacosamide [Vimpat] 200 mg tablet 200 mg PO BID Qty: 60 5RF (DME) [employer] Professional Brace See Rx Instructions .Route .MEDSUPPLY Qty: 1 0RF Rx Instructions: As directed pantoprazole [Protonix] 40 mg tablet,delayed release (DR/EC) 40 mg PO DAILY (DME) Hinged Knee brace See Rx Instructions .Route .MEDSUPPLY Qty: 1 0RF Rx Instructions: As directed mupirocin 2 % ointment 1 applic topical BID Qty: 15 0RF clonazepam [Klonopin] 0.5 mg tablet 0.5 mg PO BID PRN (Reason: when seizure pending) Qty: 10 0RF trazodone 50 mg tablet 50 mg PO .at bedtime Qty: 30 2RF calcium carbonate-vitamin D3 [Oysco 500/D] 500 mg-5 mcg (200 unit) Tablet 1 tab PO DAILY sennosides [senna] 8.6 mg Tablet 8.6 mg PO BEDTIME PRN (Reason: Constipation) ipratropium-albuterol 0.5 mg-3 mg(2.5 mg base)/3 mL Solution For Nebulization 3 ml INHALATION Q6H PRN (Reason: Shortness Of Breath) nystatin [Nyamyc] 100,000 unit/gram Powder 1 applic TOPICAL BID arformoterol [Brovana] 15 mcg/2 mL Solution For Nebulization 2 ml INHALATION QAM Vicks Vaporub 4.7-1.2-2.6 % Ointment 1 applic TOPICAL BID PRN (Reason: Cough) furosemide 20 mg tablet 20 mg PO DAILY 30 Days Qty: 30 0RF docusate sodium 100 mg Capsule 100 mg PO BID Discharge Orders: Discharge ED (Routine); Ordered 10/15/24 Ordered By: Sanchez Clark Referrals: Bran Gonsalez DO [Physician] - 4-7 days Chavez Araujo MD [Primary Care Provider] - Discharge Diet: Advance as tolerated Discharge Activity: Limit activity as instructed Patient Instructions: Knee Sprain (ED) Coding Level of Care Code ED Ethylbenzene Converter Operator for Charli Novoa
--- NOTE | 2024-10-15 09:23 | PC.PHAR ---
patient is from [facility]
[2024-10-15 10:47] VITALS: BP 143/99; PULSE 62; O2SAT 96
--- NOTE | 2024-10-15 10:55 | PC.NURSE ---
PT REFUSED KNEE IMOBILIZER. PT STATES I HAVE ONE AT THE CUSTODIAL. DR. SERRA AWARE OF REFUSAL.
[2024-10-15 13:47] VITALS: BP 136/91; PULSE 61; O2SAT 95
--- NOTE | 2024-10-17 09:03 | DCPLANNER ---
messaged ortho for er f/u
== END 2024-10-15 13:51 | disposition home or self-care (01) ==
PROVIDERS: Emergency Provider Emergency Medicine; PCP Internal Medicine
DX: S83.91XA Sprain of unspecified site of right knee, initial encounter (principal); W19.XXXA Unspecified fall, initial encounter; J44.9 Chronic obstructive pulmonary disease, unspecified; I10 Essential (primary) hypertension
CPT/HCPCS: 73562; 99283

== ENCOUNTER 2024-10-20 15:16 | Inpatient (IN) | payer MEDICARE, MEDICAID, SELFPAY ==
[2024-10-20] VITALS (8 sets, daily range): BP systolic 137–197; BP diastolic 79–123; PULSE 71–91; RESP 16–18; TEMP 36.8–36.9; O2SAT 96–99; BMI 30.2
--- NOTE | 2024-10-20 15:22 | XR_ITS ---
WS: [email or web address] Exam: XR hip RT 2-3V wo/w pel* [id number] Date/Time of Exam: 10/20/2024 3:28 PM Reason For Exam: pain There is a subcapital fracture of the RIGHT hip with coxa vera deformity. Mild degenerative change of the joint compartment. Intramedullary italo noted in the femur secondary to prior femoral fracture. Ol d fracture of the RIGHT ischium. XR/XR hip RT 2-3V wo/w pel* [id number] IMPRESSION: 1. Displaced subcapital fracture of the RIGHT hip.
--- NOTE | 2024-10-20 15:25 | XR_ITS ---
WS: [email or web address] Exam: XR chest 1V portable [id number] Date/Time of Exam: 10/20/2024 3:29 PM Reason For Exam: hip pain Comparison 07/09/2024. Lungs are fully expanded and clear. Mild cardiac enlargement unchanged. Hiatal hernia. No pleural eff usions. The mediastinum is normal in contour for technique. Tortuosity of the thoracic aorta. Advance d DJD of the RIGHT shoulder. XR/XR chest 1V portable [id number] IMPRESSION: 1. No acute cardiopulmonary finding.
--- NOTE | 2024-10-20 15:27 | W.ED.EXTPRO ---
HPI - Extremity Problem General: Chief complaint: Extremity Injury, Lower Stated complaint: FALL Time Seen by Provider: 10/20/24 15:17 Source: patient and EMS Mode of arrival: EMS Limitations: no limitations History of Present Illness: 84-year-old female is here from residential for concern of right hip fracture. Patient's had multiple falls patient states that she had some increased hip pain with pain with walking. Rates her pain at 1 out of 10 currently she is here in no distress. Associated symptoms: Deny chest pain, fever(s) or rash Related Data Home Medications Medication Instructions Recorded Confirmed albuterol sulfate 90 mcg/actuation 1 inh inhalation Q4H PRN Shortness 12/28/19 10/20/24 aerosol inhaler (FatTail HFA) Of Breath aspirin 81 mg chewable tablet 81 mg PO DAILY 12/28/19 10/20/24 (Ranjeet Chewable Low Dose Aspirin) bisacodyl 10 mg rectal suppository 10 mg [place] DAILY PRN Constipation 12/28/19 10/20/24 carbamazepine 200 mg tablet 200 mg PO BID 12/28/19 10/20/24 chlorhexidine gluconate 0.12 % 15 ml buccal BID 12/28/19 10/20/24 mouthwash dextromethorphan-guaifenesin 10 5 ml PO Q4H PRN Cough 12/28/19 10/20/24 mg-100 mg/5 mL oral liquid (Diabetic Tussin DM) epinephrine 0.3 mg/0.3 mL 0.3 ml IM ONCE PRN Allergic 12/28/19 10/20/24 injection, auto-injector (EpiPen Reaction 2-Ortega) ferrous sulfate 325 mg (65 mg 325 mg PO DAILY 12/28/19 10/20/24 iron) tablet losartan 50 mg tablet 50 mg PO DAILY 12/28/19 10/20/24 lovastatin 20 mg tablet 20 mg PO DAILY 12/28/19 10/20/24 metoprolol tartrate 50 mg tablet 50 mg PO BID 12/28/19 10/20/24 nitroglycerin 0.4 mg sublingual 0.4 mg sublingual Q5M PRN Chest 12/28/19 10/20/24 tablet (Nitrostat) Pain ondansetron HCl 4 mg tablet 4 mg PO Q4H PRN Nausea 12/28/19 10/20/24 potassium chloride 10 mEq 10 meq PO BID 12/28/19 10/20/24 capsule,extended release risperidone 0.25 mg tablet 0.25 mg PO BID 12/28/19 10/20/24 topiramate 50 mg tablet 50 mg PO BID 12/28/19 10/20/24 calcium 500 mg (as 1 tab PO DAILY 05/04/23 10/20/24 carbonate)-vitamin D3 5 mcg (200 unit) tablet (Oysco 500/D) arformoterol 15 mcg/2 mL solution 2 ml inhalation QAM 05/05/23 10/20/24 for nebulization (Brovana) camphor 4.7 %-eucalyptus oil 1.2 1 applic topical BID PRN Cough 05/05/23 10/20/24 %-menthol 2.6 % topical ointment (Vicks Vaporub) ipratropium 0.5 mg-albuterol 3 mg 3 ml inhalation Q6H PRN Shortness 05/05/23 10/20/24 (2.5 mg base)/3 mL nebulization Of Breath soln sennosides 8.6 mg tablet (senna) 8.6 mg PO BEDTIME PRN Constipation 05/05/23 10/20/24 pantoprazole 40 mg tablet,delayed 40 mg PO DAILY 08/05/24 10/20/24 release (Protonix) docusate sodium 100 mg capsule 100 mg PO BID 10/15/24 10/20/24 furosemide 40 mg tablet 40 mg PO DAILY 10/20/24 10/20/24 oxycodone 5 mg tablet 5 mg PO Q6H 10/20/24 10/20/24 polyethylene glycol 3350 17 4 g PO DAILY 10/20/24 10/20/24 gram/dose oral powder Previous Rx's Medication Instructions Recorded trazodone 50 mg tablet 50 mg PO .at bedtime #30 tabs 04/01/21 DME: Walker #1 ea 09/21/22 lacosamide 200 mg tablet (Vimpat) 200 mg PO BID #60 tabs 01/25/23 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 [employer] 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 #1 ea 07/21/23 Hinged Knee brace #1 ea 09/29/24 mupirocin 2 % topical ointment 1 applic topical BID #15 grams 10/13/24 Allergies Allergy/AdvReac Type Severity Reaction Status Date / Time lisinopril Allergy ALGY-Anaphy Verified 10/13/24 14:38 laxis Review of Systems Const: Denies: fever(s), chills, body aches or change in appetite ENMT: Denies: throat pain or dental pain Card: Denies: chest pain Resp: Denies: dyspnea GI: Denies: abdominal pain, nausea, vomiting or diarrhea Musc: Reports: extremity pain; Denies: neck pain or back pain Skin/Breast: Denies: rash Neuro: Denies: headache(s) PFSH ED PFSH: Medical History DNR no code (do not resuscitate) COVID-19 Low serum iron Obesity, morbid, BMI 40.0-49.9 Vitamin D deficiency Urinary incontinence in female Osteoporosis Lives in assisted living facility GERD (gastroesophageal reflux disease) Essential (primary) hypertension Dyslipidemia DJD (degenerative joint disease) COPD mixed type Chronic constipation Complex partial epilepsy Surgical History History of total hysterectomy Family History Mother Diabetes Heart disease Family/Other Diabetes Aunt Father Heart disease Social History Smoking and tobacco/nicotine status: never used tobacco/nicotine Second hand smoke exposure: No Substance/Drug Use: never Lives independently: No Housing: Assisted Living Facility Marital status: Current occupational status: retired Physical Exam Const: COMMON NORMALS: no acute distress, patient oriented x3 and healthy appearing HENMT: COMMON NORMALS: normocephalic and atraumatic HEAD & SCALP: normocephalic and atraumatic Neck/C-Spine: COMMON NORMALS: full ROM and supple Chest: COMMONS NORMALS: normal inspection of the chest Resp: COMMON NORMALS: normal respiratory effort, No retractions, No use of accessory muscles and clear to auscultation bilaterally AUSCULTATION: clear to auscultation bilaterally Cardio: COMMON NORMALS: regular rate, regular rhythm and No murmurs present (Cardio) RATE: regular rate RHYTHM: regular rhythm GI: COMMON NORMALS: Normal to inspection, nondistended, normoactive bowel sounds present, Soft to palpation, non-tender and no masses PALPATION: Yes Soft to palpation Extremity: NARRATIVE EXTREMITY EXAM: pain in r hip with rom Neuro: COMMON NORMALS: patient oriented x3, moves all extremities and no focal motor deficits Psych: COMMON NORMALS: mental status grossly normal, Normal thought process present and cooperative THOUGHT PROCESS: Normal thought process present Skin: COMMON NORMALS: no rashes or lesions noted and no wounds GENERAL SKIN EXAM: no rashes or lesions noted Course Vital Signs: Vital signs: Vital Signs Temperature 98.3 F 10/20/24 15:18 Pulse Rate 83 10/20/24 15:18 Respiratory Rate 18 10/20/24 15:18 Blood Pressure 194/123 10/20/24 15:18 Pulse Oximetry 97 10/20/24 15:18 Oxygen Delivery Me thod Room Air 10/20/24 15:18 MDM - Extremity (Nontraumatic) Medical Decision Making Patient presents with right hip fracture from a fall I did speak to hospitalist along with orthopedics will admit at this time. No signs of any head or neck injury. Medical Records I reviewed the patient's medical records. Lab Data I reviewed the patient's lab results. 10/20/24 15:54 10/20/24 15:54 Radiology Impressions Hip/Pelvis X-Ray 10/20/24 15:22 IMPRESSION: 1. Displaced subcapital fracture of the RIGHT hip. Chest X-Ray 10/20/24 15:25 IMPRESSION: 1. No acute cardiopulmonary finding. Laboratory Results Sodium 136 mmol/L (136-145) 10/20/24 15:54 Potassium 3.9 mmol/L (3.5-5.1) 10/20/24 15:54 Chloride 104 mmol/L (98-107) 10/20/24 15:54 Carbon Dioxide 22 mmol/L (22-29) 10/20/24 15:54 Anion Gap 13.9 (5-19) 10/20/24 15:54 BUN 20 mg/dL (8-23) 10/20/24 15:54 Creatinine 0.8 mg/dL (0.5-0.9) 10/20/24 15:54 GFR Calculation Not Reportable 10/20/24 15:54 Glucose 129 mg/dL (65-115) H 10/20/24 15:54 Calculated Osmolality 286 mOsm/kg (285-295) 10/20/24 15:54 Calcium 8.5 mg/dL (8.5-10.5) 10/20/24 15:54 Total Bilirubin 0.3 mg/dL (0.15-1.2) 10/20/24 15:54 AST 67 U/L (0-32) H 10/20/24 15:54 ALT 64 U/L (0-33) H 10/20/24 15:54 Alkaline Phosphatase 290 U/L (35-105) H 10/20/24 15:54 Total Protein 6.5 g/dL (6.6-8.7) L 10/20/24 15:54 Albumin 3.3 g/dL (3.5-5.2) L 10/20/24 15:54 Globulin 3.2 g/dL (1.3-4.6) 10/20/24 15:54 All radiology interpretation(s) finalized by discharge Discharge Plan Discharge Patient Disposition: Admitted As Inpatient Clinical Impression: Closed fracture of right hip Condition: Stable Prescriptions: No Action aspirin [Ranjeet Chewable Aspirin] 81 mg tablet,chewable 81 mg PO DAILY carbamazepine 200 mg tablet 200 mg PO BID losartan 50 mg tablet 50 mg PO DAILY lovastatin 20 mg tablet 20 mg PO DAILY metoprolol tartrate 50 mg tablet 50 mg PO BID risperidone 0.25 mg tablet 0.25 mg PO BID topiramate 50 mg tablet 50 mg PO BID ondansetron HCl 4 mg tablet 4 mg PO Q4H PRN (Reason: Nausea) chlorhexidine gluconate 0.12 % mouthwash 15 ml BUCCAL BID ferrous sulfate 325 mg (65 mg iron) tablet 325 mg PO DAILY potassium chloride 10 mEq capsule, extended release 10 meq PO BID bisacodyl 10 mg suppository 10 mg [place] DAILY PRN (Reason: Constipation) dextromethorphan-guaifenesin [Diabetic Tussin DM] 10-100 mg/5 mL liquid 5 ml PO Q4H PRN (Reason: Cough) epinephrine [EpiPen 2-Ortega] 0.3 mg/0.3 mL auto-injector 0.3 ml IM ONCE PRN (Reason: Allergic Reaction) nitroglycerin [Nitrostat] 0.4 mg tablet, sublingual 0.4 mg SUBLINGUAL Q5M PRN (Reason: Chest Pain) albuterol sulfate [Ventolin HFA] 90 mcg/actuation HFA aerosol inhaler 1 inh INHALATION Q4H PRN (Reason: Shortness Of Breath) (DME) DME: Walker Unit See Rx Instructions .ROUTE .MEDSUPPLY Qty: 1 0RF Rx Instructions: Code E0143 and E0156 walker 4 wheels and seat lacosamide [Vimpat] 200 mg tablet 200 mg PO BID Qty: 60 5RF (DME) L[employer] 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 See Rx Instructions .Route .MEDSUPPLY Qty: 1 0RF Rx Instructions: As directed pantoprazole [Protonix] 40 mg tablet,delayed release (DR/EC) 40 mg PO DAILY (DME) Hinged Knee brace See Rx Instructions .Route .MEDSUPPLY Qty: 1 0RF Rx Instructions: As directed mupirocin 2 % ointment 1 applic topical BID Qty: 15 0RF trazodone 50 mg tablet 50 mg PO .at bedtime Qty: 30 2RF calcium carbonate-vitamin D3 [Oysco 500/D] 500 mg-5 mcg (200 unit) Tablet 1 tab PO DAILY sennosides [senna] 8.6 mg Tablet 8.6 mg PO BEDTIME PRN (Reason: Constipation) ipratropium-albuterol 0.5 mg-3 mg(2.5 mg base)/3 mL Solution For Nebulization 3 ml INHALATION Q6H PRN (Reason: Shortness Of Breath) arformoterol [Brovana] 15 mcg/2 mL Solution For Nebulization 2 ml INHALATION QAM Vicks Vaporub 4.7-1.2-2.6 % Ointment 1 applic TOPICAL BID PRN (Reason: Cough) docusate sodium 100 mg Capsule 100 mg PO BID furosemide 40 mg tablet 40 mg PO DAILY polyethylene glycol 3350 17 gram/dose Powder 4 g PO DAILY oxycodone 5 mg tablet 5 mg PO Q6H Referrals: Chavez Araujo MD [Primary Care Provider] - Coding Level of Care Code ED Produce Assistant for Charli Novoa
--- NOTE | 2024-10-20 15:41 | PC.PHAR ---
patient is from [facility], em[facility] brought med list & mar
--- NOTE | 2024-10-20 15:44 | ECG_ITS ---
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 Measurements Intervals [place] Rate: 78 P: 76 HI: 174 QRS: 28 QRSD: 89 T: 43 QT: 385 QTc: 441 Interpretive Statements SINUS RHYTHM Compared to ECG 07/09/2024 04:38:41 Sinus arrhythmia no longer present T-wave abnormality no longer present Electronically Signed On 10-22-2024 10:27:41 PAINT PREPARER by Tanner Salazar M.D. [email or web address]
[2024-10-20 16:20] LABS: Alanine Aminotransferase 64 U/L (0-33); Albumin Level 3.3 g/dL (3.5-5.2); Alkaline Phosphatase 290 U/L (35-105); Anion Gap 13.9 (5-19); Aspartate Amino Transferase 67 U/L (0-32); Blood Urea Nitrogen 20 mg/dL (8-23); Calcium 8.5 mg/dL (8.5-10.5); Carbon Dioxide 22 mmol/L (22-29); Chloride 104 mmol/L (98-107); Creatinine Clr Calc Pharmacy 52.5554; Globulin 3.2 g/dL (1.3-4.6); Glucose 129 mg/dL (65-115); Osmolality Calculated 286 mOsm/kg (285-295); Potassium 3.9 mmol/L (3.5-5.1); Sodium 136 mmol/L (136-145); Total Bilirubin 0.3 mg/dL (0.15-1.2); Total Protein 6.5 g/dL (6.6-8.7)
[2024-10-20 16:21] LABS: INR 1.01 (0.8-1.2)
[2024-10-20] MEDS: morphine 4 mg/mL SDV 1 mL 2 MG IVP ×2 (16:52→23:05)
--- NOTE | 2024-10-20 17:17 | CTR_ITS ---
PROCEDURE INFORMATION: Exam: CT Right Lower Extremity, Thigh Exam date and time: 10/20/2024 10:26 PM Age: 84 years old Clinical indication: Injury or trauma; Fall; Blunt trauma; Hip; Right; Prior surgery; Surgery date: 6+ months; Surgery type: Femoral italo; Additional info: Right femoral neck fracture, previous right femur retrograde, confirm distal femur union TECHNIQUE: Imaging protocol: CT of the right lower extremity without contrast was performed. Exam focused on the thigh. Radiation optimization: All CT scans at this facility use at least one of these dose optimization techniques: automated exposure control; mA and/or kV adjustment per patient size (includes targeted exams where dose is matched to clinical indication); or iterative reconstruction. COMPARISON: CR XR femur RT min 2V* [id number] 06/07/2024 1:34 PM RADIATION DOSE METRICS: Total DLP (mGy-cm): 703.91 FINDINGS: Bones/joints: Demineralization of the visualized bones. There is a right femoral subcapital fracture with cranial displacement. There is a small right hip joint effusion. No hip dislocation. Chronic fracture deformity of the right inferior pubic ramus. There is fluid in the right trochanteric bursa. Right distal femoral intramedullary nail with interlocking screws. No hardware complications. There is bony bridging at distal femoral fracture site. Moderate knee joint effusion. Severe degenerative disease of the right knee joint. Calcifications in the patellar tendon. Soft tissues: Mild skin thickening and subcutaneous fat stranding at the posterolateral aspect of the knee. Vasculature: There are vascular calcifications. Urinary bladder: [place] catheter in the bladder. CT/CT femur RT wo con* [id number] IMPRESSION: Right femoral subcapital fracture with cranial displacement and small right hip joint effusion.
--- NOTE | 2024-10-20 17:17 | XRR_ITS ---
PROCEDURE INFORMATION: Exam: XR Right Femur Exam date and time: 10/20/2024 10:29 PM Age: 84 years old Clinical indication: Injury or trauma; Fall; Blunt trauma; Hip; Right; Prior surgery; Surgery date: 6+ months; Surgery type: Femoral italo; Additional info: Right femoral neck fracture TECHNIQUE: Imaging protocol: Radiologic exam of the right femur. Views: 2 views. COMPARISON: CT femur RT wo con* [id number] 10/20/2024 10:26 PM FINDINGS: Bones/joints: Right femoral subcapital fracture with cranial displacement. No dislocation. Right distal femoral intramedullary nail and interlocking screws with no hardware complications. Severe degenerative disease of the knee joint. Moderate knee joint effusion Soft tissues: Unremarkable. Vasculature: Vascular calcifications. XR/XR femur RT min 2V* [id number] IMPRESSION: Right femoral subcapital fracture with cranial displacement.
--- NOTE | 2024-10-20 17:21 | P.CONIM_ITS ---
Providers/Reason For Consult 2 Consulting Physician/Specialty*: Emmanuel Sidhu DO/orthopedic surgery Reason for Consult*: Right hip displaced femoral neck fracture Requesting Physician: Dr. Sanchez Clark Attending Physician: Ron Nguyen MD Primary Care Provider: Chavez Araujo MD History of Present Illness History of Present Illness Tennille James is a 84 year old female who sustained a ground-level fall and a right hip displaced femoral neck fracture. Patient has been seen eval in the emergency department was admitted by the hospitalist team as primary and orthopedics was consulted for evaluation treatment recommendations. Patient is well-known to my practice as she was treated for a right distal femur fracture with a right femur retrograde nail back on 05/05/2023. She is went on to heal this uncomplicated course she has done well postoperatively unfortunately she did have significant right knee arthritis and at this point in time we have been treating her knee arthritis recently. Unfortunately she fell and broke the femoral neck fracture unfortunately the femoral italo does communicate all the way up to the lesser trochanter which at this point in time would need to be removed for a right hip hemiarthroplasty. At this point in time she has subsequently been admitted by hospitalist orthopedics consulted. Patient denies any other complaints or pain elsewhere at this time. Review of Systems 2 General: Reports: 10 or more systems reviewed and unremarkable except in HPI and below Medications/Allergies Home Medications Medication Instructions Recorded Confirmed Last Taken Type albuterol sulfate 90 mcg/actuation 1 inh inhalation Q4H PRN Shortness 12/28/19 10/20/24 Unknown History aerosol inhaler (Ventolin HFA) Of Breath aspirin 81 mg chewable tablet 81 mg PO DAILY 12/28/19 10/20/24 10/20/24 History (Ranjeet Chewable Low Dose Aspirin) bisacodyl 10 mg rectal suppository 10 mg OR DAILY PRN Constipation 12/28/19 10/20/24 10/20/24 History carbamazepine 200 mg tablet 200 mg PO BID 12/28/19 10/20/24 10/20/24 History chlorhexidine gluconate 0.12 % 15 ml buccal BID 12/28/19 10/20/24 10/20/24 History mouthwash dextromethorphan-guaifenesin 10 5 ml PO Q4H PRN Cough 12/28/19 10/20/24 Unknown History mg-100 mg/5 mL oral liquid (Diabetic Tussin DM) epinephrine 0.3 mg/0.3 mL 0.3 ml IM ONCE PRN Allergic 12/28/19 10/20/24 Unknown History injection, auto-injector (EpiPen Reaction 2-Ortega) ferrous sulfate 325 mg (65 mg 325 mg PO DAILY 12/28/19 10/20/24 10/20/24 History iron) tablet losartan 50 mg tablet 50 mg PO DAILY 12/28/19 10/20/24 10/20/24 History lovastatin 20 mg tablet 20 mg PO DAILY 12/28/19 10/20/24 10/20/24 History metoprolol tartrate 50 mg tablet 50 mg PO BID 12/28/19 10/20/24 10/20/24 History nitroglycerin 0.4 mg sublingual 0.4 mg sublingual Q5M PRN Chest 12/28/19 10/20/24 Unknown History tablet (Nitrostat) Pain ondansetron HCl 4 mg tablet 4 mg PO Q4H PRN Nausea 12/28/19 10/20/24 Unknown History potassium chloride 10 mEq 10 meq PO BID 12/28/19 10/20/24 10/20/24 History capsule,extended release risperidone 0.25 mg tablet 0.25 mg PO BID 12/28/19 10/20/24 10/20/24 History topiramate 50 mg tablet 50 mg PO BID 12/28/19 10/20/24 10/20/24 History trazodone 50 mg tablet 50 mg PO .at bedtime #30 tabs 04/01/21 10/20/24 10/20/24 Rx DME: Jaylon #1 ea 09/21/22 10/20/24 Unknown Rx lacosamide 200 mg tablet (Vimpat) 200 mg PO BID #60 tabs 01/25/23 10/20/24 10/20/24 Rx calcium 500 mg (as 1 tab PO DAILY 05/04/23 10/20/24 10/20/24 History carbonate)-vitamin D3 5 mcg (200 unit) tablet (Oysco 500/D) arformoterol 15 mcg/2 mL solution 2 ml inhalation QAM 05/05/23 10/20/24 10/20/24 History for nebulization (Brovana) camphor 4.7 %-eucalyptus oil 1.2 1 applic topical BID PRN Cough 05/05/23 10/20/24 Unknown History %-menthol 2.6 % topical ointment (Vicks Vaporub) ipratropium 0.5 mg-albuterol 3 mg 3 ml inhalation Q6H PRN Shortness 05/05/23 10/20/24 Unknown History (2.5 mg base)/3 mL nebulization Of Breath soln sennosides 8.6 mg tablet (senna) 8.6 mg PO BEDTIME PRN Constipation 05/05/23 10/20/24 10/20/24 History Lateral Utilities Ground Worker Brace #1 ea 07/21/23 10/20/24 Unknown Rx pantoprazole 40 mg tablet,delayed 40 mg PO DAILY 08/05/24 10/20/24 10/20/24 History release (Protonix) Hinged Knee brace #1 ea 09/29/24 10/20/24 Unknown Rx mupirocin 2 % topical ointment 1 applic topical BID #15 grams 10/13/24 10/20/24 10/20/24 Rx docusate sodium 100 mg capsule 100 mg PO BID 10/15/24 10/20/24 10/20/24 History furosemide 40 mg tablet 40 mg PO DAILY 10/20/24 10/20/24 10/20/24 History oxycodone 5 mg tablet 5 mg PO Q6H 10/20/24 10/20/24 Unknown History polyethylene glycol 3350 17 4 g PO DAILY 10/20/24 10/20/24 10/18/24 History gram/dose oral powder Allergies Allergy/AdvReac Type Severity Reaction Status Date / Time lisinopril Allergy ALGY-Anaphy Verified 10/13/24 14:38 laxis PFSH Acute 2 PFSH: Medical History DNR no code (do not resuscitate) COVID-19 Low serum iron Obesity, morbid, BMI 40.0-49.9 Vitamin D deficiency Urinary incontinence in female Osteoporosis Lives in assisted living facility GERD (gastroesophageal reflux disease) Essential (primary) hypertension Dyslipidemia DJD (degenerative joint disease) COPD mixed type Chronic constipation Complex partial epilepsy Surgical History History of total hysterectomy Family History Mother Diabetes Heart disease Family/Other Diabetes Aunt Father Heart disease Social History Smoking and tobacco/nicotine status: never used tobacco/nicotine Second hand smoke exposure: No Substance/Drug Use: never Lives independently: No Housing: Assisted Living Facility Marital status: Current occupational status: retired Vitals/I&O/Wt Last Vital Signs Temp 98.3 F 10/20/24 15:18 Pulse 83 10/20/24 15:18 Resp 17 10/20/24 16:52 BP 194/123 10/20/24 15:18 Pulse Ox 97 10/20/24 16:52 O2 Del Method Room Air 10/20/24 15:18 Weight last 48 hrs Weight 176 lb Physical Exam 2 Narrative: Patient is able to to follow commands and perform a standard?examination.?? Examination right lower extremity: Examination of the right lower extremity demonstrates patient has tenderness palpation of the right?hip?as well as the right lower extremity is shortened and externally rotated pt has positive logroll on?examination unable to perform Stinchfield's secondary to pain and discomfort.? Patient is able to wiggle toes plantarflex and dorsiflex ankle sensations intact to light touch distally.? Distal pulses are palpable right lower extremity is warm and well-perfused.? Mild swelling noted about the right?hip.? Patient's previous incisions about the right femur are well-healed no signs of infection. Patient does have a noticeable 10 to 15 degree valgus deformity. Secondary survey?examination unremarkable For any acute pathology to the bilateral upper extremities or contralateral lower extremity.? pt? has no tenderness to palpation to the bilateral upper extremities joints and no noticeable deformities.? ?gross motor and sensory is intact to the bilateral upper extremities.? Contralateral lower extremity has tenderness to the?hip?knee or ankle with no appreciable deformities and is able to plantarflex and dorsiflex ankle sensations intact to light touch distally as well as wiggle toes.? Distal pulses palpable.? Negative pelvic compression test, no tenderness palpation of the spine. Data 10/21/24 15:06 10/21/24 15:06 Xray Ortho: Radiologist's impression: Ordering Provider/Ordering MD: Emmanuel Sidhu Date of Service: 10/20/24 Procedure(s): XR femur RT min 2V* [id number] Accession Number(s): [id number] Report Number: [id number] PROCEDURE INFORMATION: Exam: XR Right Femur Exam date and time: 10/20/2024 10:29 PM Age: 84 years old Clinical indication: Injury or trauma; Fall; Blunt trauma; Hip; Right; Prior surgery; Surgery date: 6+ months; Surgery type: Femoral italo; Additional info: Right femoral neck fracture TECHNIQUE: Imaging protocol: Radiologic exam of the right femur. Views: 2 views. COMPARISON: CT femur RT wo con* [id number] 10/20/2024 10:26 PM FINDINGS: Bones/joints: Right femoral subcapital fracture with cranial displacement. No dislocation. Right distal femoral intramedullary nail and interlocking screws with no hardware complications. Severe degenerative disease of the knee joint. Moderate knee joint effusion Soft tissues: Unremarkable. Vasculature: Vascular calcifications. XR/XR femur RT min 2V* [id number] IMPRESSION: Right femoral subcapital fracture with cranial displacement. Ordering Provider/Ordering MD: Emmanuel Sidhu Date of Service: 10/20/24 Procedure(s): CT femur RT wo con* [id number] Accession Number(s): [id number] Report Number: [id number] PROCEDURE INFORMATION: Exam: CT Right Lower Extremity, Thigh Exam date and time: 10/20/2024 10:26 PM Age: 84 years old Clinical indication: Injury or trauma; Fall; Blunt trauma; Hip; Right; Prior surgery; Surgery date: 6+ months; Surgery type: Femoral italo; Additional info: Right femoral neck fracture, previous right femur retrograde, confirm distal femur union TECHNIQUE: Imaging protocol: CT of the right lower extremity without contrast was performed. Exam focused on the thigh. Radiation optimization: All CT scans at this facility use at least one of these dose optimization techniques: automated exposure control; mA and/or kV adjustment per patient size (includes targeted exams where dose is matched to clinical indication); or iterative reconstruction. COMPARISON: CR XR femur RT min 2V* [id number] 06/07/2024 1:34 PM RADIATION DOSE METRICS: Total DLP (mGy-cm): 703.91 FINDINGS: Bones/joints: Demineralization of the visualized bones. There is a right femoral subcapital fracture with cranial displacement. There is a small right hip joint effusion. No hip dislocation. Chronic fracture deformity of the right inferior pubic ramus. There is fluid in the right trochanteric bursa. Right distal femoral intramedullary nail with interlocking screws. No hardware complications. There is bony bridging at distal femoral fracture site. Moderate knee joint effusion. Severe degenerative disease of the right knee joint. Calcifications in the patellar tendon. Soft tissues: Mild skin thickening and subcutaneous fat stranding at the posterolateral aspect of the knee. Vasculature: There are vascular calcifications. Urinary bladder: Richmond catheter in the bladder. CT/CT femur RT wo con* [id number] IMPRESSION: Right femoral subcapital fracture with cranial displacement and small right hip joint effusion. Ordering Provider/Ordering MD: Sanchez Clark MD Date of Service: 10/20/24 Procedure(s): XR hip RT 2-3V wo/w pel* [id number] Accession Number(s): [id number] Report Number: [id number] WS: [id number] Exam: XR hip RT 2-3V wo/w pel* [id number] Date/Time of Exam: 10/20/2024 3:28 PM Reason For Exam: pain There is a subcapital fracture of the RIGHT hip with coxa vera deformity. Mild degenerative change of the joint compartment. Intramedullary italo noted in the femur secondary to prior femoral fracture. Old fracture of the RIGHT ischium. XR/XR hip RT 2-3V wo/w pel* [id number] IMPRESSION: 1. Displaced subcapital fracture of the RIGHT hip. A&P Assessment and plan (1) Closed fracture of right hip: (2) Status post open reduction and internal fixation (ORIF) of fracture: (3) Right knee DJD: Qualifiers: Osteoarthritis type: primary Qualified Code(s): M17.11 - Unilateral primary osteoarthritis, right knee Plan Orthopedics consulted Hospitalist admitted patient is primary Imaging reviewed?displaced right?hip?femoral neck fracture, routine right femur retrograde nail with healed distal femur fracture Labs reviewed Pain control Nonweightbearing right lower extremity May have a diet today N.p.o. at midnight Hold a.m. anticoagulation Plan?to add on for surgery tomorrow for a right femur removal deep orthopedic hardware, right?hip?hemiarthroplasty MDM: Patient 84-year-old female who sustained a ground-level fall and has a displaced right?hip?femoral neck fracture.? She was seen eval in the emergency department admitted and found to have this fracture.? Orthopedics was consulted.? Patient is well-known to my practice and has sustained a distal femur fracture back in 2022 this is went on to heal without any issues or complications. She does have significant right knee degenerative joint disease as well. She unfortunately sustained a fall and has a fracture of the right femoral neck in order to perform a right hip hemiarthroplasty will need to remove the deep orthopedic hardware the femur. We talked about this with the patient as well as her niece Jackelin who is her point contact. We talked about the risks benefits complication alternatives with surgery.? Risk of surgery include but are not limited to make it better make it worse injury to nerves vessels or tendons blood clot, heart attack, stroke, on the table, infection,?hip?instability, periprosthetic fracture.? Understanding risk of surgery patient and family understands and agrees with current?plan.? We did a consent yesterday in the hospital over the phone with Jackelin as well as with the patient. Patient is aware understands her diagnosis and the treatment plan and is able to sign her own consent. However we did also include that we did discuss her niece Jackelin was in agreements as well. All questions have been answered at this time.? Through shared decision-making elects to proceed with surgical intervention for a right femur removal deep orthopedic of retrograde nail, followed by right?hip?hemiarthroplasty.? Given this displacement, feeling a hip hemiarthroplasty would be her best treatment option. result we elected proceed with surgical intervention.??Plan?will be for surgery tomorrow.? All questions answered at this time. Coding Level of Care Code Acute Code for [facility] Diagnoses Closed fracture of right hip S72.001A Status post open reduction and internal fixation (ORIF) of fracture Z98.890; Z87.81 Primary osteoarthritis of right knee M17.11 Osteoarthritis type: primary
--- NOTE | 2024-10-20 17:41 | P.HP_ITS ---
Providers/Chief Complaint 2 Admitting Physician: Ron Nguyen MD Primary Care Provider: Chavze Araujo MD Chief Complaint: FALL History of Present Illness Tennille James is a 84 year old female with a past medical history of COPD, GERD, hypertension, epilepsy, who presents to [facility] for a fall. Patient lives at an assisted living facility she tells me, she typically ambulates with a walker, she tells me that today she was getting up to use the bathroom, when her knees went out and she fell to the ground, she denies losing consciousness, denies hitting her head, denies any preceding chest pain or palpitations or lightheadedness or any seizure-like symptoms, in the emergency room she was found to have a right hip fracture Review of Systems 2 Card: Denies: chest pain Resp: Denies: dyspnea GI: Denies: abdominal pain Musc: Reports: joint pain Neuro: Denies: headache(s) Medications/Allergies Home Medications Medication Instructions Recorded Confirmed Last Taken Type albuterol sulfate 90 mcg/actuation 1 inh inhalation Q4H PRN Shortness 12/28/19 10/20/24 Unknown History aerosol inhaler (Ventolin HFA) Of Breath aspirin 81 mg chewable tablet 81 mg PO DAILY 12/28/19 10/20/24 10/20/24 History (Ranjeet Chewable Low Dose Aspirin) bisacodyl 10 mg rectal suppository 10 mg CO DAILY PRN Constipation 12/28/19 10/20/24 10/20/24 History carbamazepine 200 mg tablet 200 mg PO BID 12/28/19 10/20/24 10/20/24 History chlorhexidine gluconate 0.12 % 15 ml buccal BID 12/28/19 10/20/24 10/20/24 History mouthwash dextromethorphan-guaifenesin 10 5 ml PO Q4H PRN Cough 12/28/19 10/20/24 Unknown History mg-100 mg/5 mL oral liquid (Diabetic Tussin DM) epinephrine 0.3 mg/0.3 mL 0.3 ml IM ONCE PRN Allergic 12/28/19 10/20/24 Unknown History injection, auto-injector (EpiPen Reaction 2-Ortega) ferrous sulfate 325 mg (65 mg 325 mg PO DAILY 12/28/19 10/20/24 10/20/24 History iron) tablet losartan 50 mg tablet 50 mg PO DAILY 12/28/19 10/20/24 10/20/24 History lovastatin 20 mg tablet 20 mg PO DAILY 12/28/19 10/20/24 10/20/24 History metoprolol tartrate 50 mg tablet 50 mg PO BID 12/28/19 10/20/24 10/20/24 History nitroglycerin 0.4 mg sublingual 0.4 mg sublingual Q5M PRN Chest 12/28/19 10/20/24 Unknown History tablet (Nitrostat) Pain ondansetron HCl 4 mg tablet 4 mg PO Q4H PRN Nausea 12/28/19 10/20/24 Unknown History potassium chloride 10 mEq 10 meq PO BID 12/28/19 10/20/24 10/20/24 History capsule,extended release risperidone 0.25 mg tablet 0.25 mg PO BID 12/28/19 10/20/24 10/20/24 History topiramate 50 mg tablet 50 mg PO BID 12/28/19 10/20/24 10/20/24 History trazodone 50 mg tablet 50 mg PO .at bedtime #30 tabs 04/01/21 10/20/24 10/20/24 Rx DME: Walker #1 ea 09/21/22 10/20/24 Unknown Rx lacosamide 200 mg tablet (Vimpat) 200 mg PO BID #60 tabs 01/25/23 10/20/24 10/20/24 Rx calcium 500 mg (as 1 tab PO DAILY 05/04/23 10/20/24 10/20/24 History carbonate)-vitamin D3 5 mcg (200 unit) tablet (Oysco 500/D) arformoterol 15 mcg/2 mL solution 2 ml inhalation QAM 05/05/23 10/20/24 10/20/24 History for nebulization (Brovana) camphor 4.7 %-eucalyptus oil 1.2 1 applic topical BID PRN Cough 05/05/23 10/20/24 Unknown History %-menthol 2.6 % topical ointment (Vicks Vaporub) ipratropium 0.5 mg-albuterol 3 mg 3 ml inhalation Q6H PRN Shortness 05/05/23 10/20/24 Unknown History (2.5 mg base)/3 mL nebulization Of Breath soln sennosides 8.6 mg tablet (senna) 8.6 mg PO BEDTIME PRN Constipation 05/05/23 10/20/24 10/20/24 History Lateral Spotter Driver Brace #1 ea 07/21/23 10/20/24 Unknown Rx pantoprazole 40 mg tablet,delayed 40 mg PO DAILY 08/05/24 10/20/24 10/20/24 History release (Protonix) Hinged Knee brace #1 ea 09/29/24 10/20/24 Unknown Rx mupirocin 2 % topical ointment 1 applic topical BID #15 grams 10/13/24 10/20/24 10/20/24 Rx docusate sodium 100 mg capsule 100 mg PO BID 10/15/24 10/20/24 10/20/24 History furosemide 40 mg tablet 40 mg PO DAILY 10/20/24 10/20/24 10/20/24 History oxycodone 5 mg tablet 5 mg PO Q6H 10/20/24 10/20/24 Unknown History polyethylene glycol 3350 17 4 g PO DAILY 10/20/24 10/20/24 10/18/24 History gram/dose oral powder Allergies Allergy/AdvReac Type Severity Reaction Status Date / Time lisinopril Allergy ALGY-Anaphy Verified 10/13/24 14:38 laxis PFSH Acute 2 PFSH: Medical History DNR no code (do not resuscitate) COVID-19 Low serum iron Obesity, morbid, BMI 40.0-49.9 Vitamin D deficiency Urinary incontinence in female Osteoporosis Lives in assisted living facility GERD (gastroesophageal reflux disease) Essential (primary) hypertension Dyslipidemia DJD (degenerative joint disease) COPD mixed type Chronic constipation Complex partial epilepsy Surgical History History of total hysterectomy Family History Mother Diabetes Heart disease Family/Other Diabetes Aunt Father Heart disease Social History Smoking and tobacco/nicotine status: never used tobacco/nicotine Second hand smoke exposure: No Substance/Drug Use: never Lives independently: No Housing: Assisted Living Facility Marital status: Current occupational status: retired Vitals/I&O/Wt Last Vital Signs Temp 98.3 F 10/20/24 15:18 Pulse 80 10/20/24 17:11 Resp 17 10/20/24 16:52 BP 137/97 10/20/24 17:11 Pulse Ox 97 10/20/24 17:11 O2 Del Method Room Air 10/20/24 15:18 Weight last 48 hrs Weight 79.832 kg Physical Exam 2 Const: COMMON NORMALS: no acute distress and patient oriented x3 HENMT: COMMON NORMALS: normocephalic HEAD & SCALP: normocephalic Eye: COMMON NORMALS: Equal, round and reactive pupils present and EOMs intact bilaterally Resp: COMMON NORMALS: normal respiratory effort, No retractions, No use of accessory muscles and clear to auscultation bilaterally AUSCULTATION: clear to auscultation bilaterally Cardio: COMMON NORMALS: regular rate, regular rhythm, S1 normal heart sound present and S2 normal heart sound present RATE: regular rate RHYTHM: r egular rhythm HEART SOUNDS: S1 normal heart sound present and S2 normal heart sound present GI: COMMON NORMALS: Normal to inspection, nondistended, normoactive bowel sounds present, Soft to palpation and non-tender Extremity: COMMON NORMALS: no calf tenderness and no pedal edema Neuro: COMMON NORMALS: patient oriented x3 and CN's II-XII intact bilaterally Psych: COMMON NORMALS: mental status grossly normal Data 10/20/24 15:54 10/20/24 15:54 A&P Assessment and plan (1) Obesity, morbid, BMI 40.0-49.9: (2) Essential (primary) hypertension: (3) Fall: (4) Closed fracture of right hip: Plan Fall ? Sounds like mechanical fall -CT head -CT of the right femur ordered ? UA Right hip fracture -Morphine for pain control -S CDs for DVT prophylaxis, Lovenox currently on hold as there is plans on surgery -N.p.o. midnight -PT OT after surgery tomorrow -IV fluids History of seizures -Continue carbamazepine, lacosamide, Topamax CODE STATUS DNR/DNI, SCDs for DVT prophylaxis Attestations 2 Medical Necessity Statement*: Patient requires hospitalization, inpatient, greater than 2 midnights, for fall, right hip fracture and High MDM includes number and complexity of problems actively addressed during encounter, amount and/or complexity of data reviewed/ordered and described risk of complication, morbidity or mortality of management as documented Diagnoses Obesity, morbid, BMI 40.0-49.9 E66.01 Essential (primary) hypertension I10 Fall W19.XXXA Closed fracture of right hip S72.001A
--- NOTE | 2024-10-20 17:52 | PC.NURSE ---
Dr Sidhu contacted Lissette that was on the patient's contact list to discuss surgery.
[2024-10-20 17:57] LABS: Lactic Sepsis W/Reflex 1.2 mmol/L (0.5-2.2)
[2024-10-20 18:00] LABS: NT Pro B Type Natriuretic Pept 500 pg/mL (0-450); Thyroid Stimulating Hormone 1.43 uIU/mL (0.27-4.20)
--- NOTE | 2024-10-20 18:03 | CTR_ITS ---
PROCEDURE INFORMATION: Exam: CT Head Without Contrast Exam date and time: 10/20/2024 10:23 PM Age: 84 years old Clinical indication: Injury or trauma; Fall TECHNIQUE: Imaging protocol: Computed tomography of the head without contrast. Radiation optimization: All CT scans at this facility use at least one of these dose optimization techniques: automated exposure control; mA and/or kV adjustment per patient size (includes targeted exams where dose is matched to clinical indication); or iterative reconstruction. COMPARISON: CT head wo con* [id number] 05/05/2023 3:02 PM RADIATION DOSE METRICS: Total DLP (mGy-cm): 1062.23 FINDINGS: Brain: No acute intracranial hemorrhage. No acute territorial region of foss-white dedifferentiation. No extra-axial collection. No mass effect or midline shift. Moderate burden of nonspecific white matter hypoattenuation, likely chronic microvascular ischemic change. Generalized parenchymal volume loss. 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 Cerebral ventricles: No acute hydrocephalus. Paranasal sinuses: Visualized sinuses are well-aerated. No fluid levels. Mastoid air cells: Visualized mastoid air cells are well aerated. Orbital cavities: No acute abnormality of the visualized orbits. Bones: No acute calvarial fracture. Soft tissues: No acute abnormality. CT/CT head wo con* [id number] IMPRESSION: No acute intracranial hemorrhage or acute calvarial fracture.
[2024-10-20 18:11] LABS: C Reactive Protein 148.9 mg/L (0.0-4.9); Chol HDL Ratio 3.34 mg/dL (0.0-4.40); Cholesterol 147 mg/dL (0-200); HDL Cholesterol 44 mg/dL (60-100); LDL Cholesterol Calculated 79 mg/dL (50-129); Phosphorus 3.4 mg/dL (2.5-4.5); Triglycerides 119 mg/dL (0-150)
[2024-10-20 18:38] LABS: Basophils % 0.4 %; Eosinophils # 0.1 10^3/uL (0.0-0.8); Eosinophils % 1.4 %; Hematocrit 43.4 % (36-47); Lymphocytes # 1.4 10^3/uL (0.8-4.8); Lymphocytes % 14.3 %; Mean Corpuscular HGB Conc 31.3 g/dL (30-55); Mean Corpuscular Hemoglobin 29.6 pg (27-33); Mean Corpuscular Volume 94.3 fl (85-98); Mean Platelet Volume 9.4 fL (7.4-10.4); Monocytes # 1.1 10^3/uL (0.2-0.9); Monocytes % 11.1 %; Neutrophils # 7.19 10^3/uL (1.8-7.7); Neutrophils % 72.2 %; Nucleated Red Blood Cells % 0 %; Platelet Count 248 10^3/cmm (157-399); Red Cell Distribution Width 14.2 % (12.1-15.1); White Blood Count 9.97 10^3/uL (3.29-11.43)
[2024-10-20 19:16] LABS: Gamma Glutamyl Transferase 536 U/L (5-36); Lipase 13 U/L (13-60)
[2024-10-20] MEDS: metoprolol tartrate 50 mg Tablet PO (19:31)
[2024-10-20] MEDS: carBAMazepine 200 mg Tablet PO (19:32)
[2024-10-20] MEDS: pantoprazole 40 mg SDV IVP (19:32)
[2024-10-20] MEDS: topiramate 25 mg Tablet 50 MG PO (19:32)
[2024-10-20] MEDS: docusate sodium 100 mg Capsule PO (19:32)
[2024-10-20] MEDS: lacosamide 50 mg Tablet 200 MG PO (19:32)
[2024-10-20] MEDS: risperiDONE 0.25 mg Tablet PO (19:32)
[2024-10-20] MEDS: sodium chloride 0.9% 1,000 ML 75 ML IV (19:33)
[2024-10-20] MEDS: albuterol 2.5 mg/3 mL Neb INHALATION (20:14)
[2024-10-20] MEDS: trazodone 50 mg Tablet PO (20:45)
[2024-10-20] MEDS: HYDROcodone-acetaminophen 5-325 mg Tablet 1 TAB PO (20:45)
[2024-10-20 20:58] LABS: Estmated Average Glucose 108; Hemoglobin A1C 5.4 % (4.0-6.0)
--- NOTE | 2024-10-20 22:52 | PC.NURSE ---
Henrietta Kamara called and stated to me that she saw a bright spot on the patient's head CT. Dr. Kim notified of upstream biomanufacturing technician's statement.
[2024-10-20 23:36] LABS: Bilirubin Urine Negative (Negative); Blood Urine Non-haemolysed trace (Negative); Glucose Urine UA Negative (Normal); Ketones Urine Negative (Negative); Leukocyte Esterase Urine Trace (Negative); Nitrate Urine Negative (Negative); Protein Urine 1+ (Negative); Specific Gravity, Urine 1.028 (1.005-1.030); Urine Appearance Clear (CLEAR); Urine Color Dark Yellow (Yellow)
[2024-10-20 23:41] LABS: Add Urine Microscopic? YES; Bacteria Urine None Seen /hpf; Hyaline Casts Urine 1.65 /lpf; Squamous Epithelial Cell Urine 0-5 /hpf (0-5)
[2024-10-21] VITALS (19 sets, daily range): BP systolic 106–156; BP diastolic 59–92; PULSE 64–104; RESP 16–17; TEMP 36.2–36.8; O2SAT 93–100
[2024-10-21 05:08] LABS: Basophils % 0.5 %; Eosinophils # 0.2 10^3/uL (0.0-0.8); Eosinophils % 3.2 %; Hematocrit 38.8 % (36-47); Lymphocytes % 26.8 %; Mean Corpuscular HGB Conc 30.9 g/dL (30-55); Mean Corpuscular Hemoglobin 29.6 pg (27-33); Mean Corpuscular Volume 95.6 fl (85-98); Mean Platelet Volume 9.1 fL (7.4-10.4); Monocytes % 13.7 %; Neutrophils # 4.02 10^3/uL (1.8-7.7); Neutrophils % 55.1 %; Nucleated Red Blood Cells % 0 %; Platelet Count 221 10^3/cmm (157-399); Red Blood Count 4.06 10^6/uL (3.85-5.65); Red Cell Distribution Width 14.2 % (12.1-15.1)
[2024-10-21 05:30] LABS: Alanine Aminotransferase 42 U/L (0-33); Albumin Level 2.8 g/dL (3.5-5.2); Alkaline Phosphatase 217 U/L (35-105); Anion Gap 13.3 (5-19); Aspartate Amino Transferase 29 U/L (0-32); Blood Urea Nitrogen 19 mg/dL (8-23); Calcium 8.1 mg/dL (8.5-10.5); Carbon Dioxide 21 mmol/L (22-29); Chloride 111 mmol/L (98-107); Creatinine Clr Calc Pharmacy 53.7521; Globulin 2.6 g/dL (1.3-4.6); Glucose 98 mg/dL (65-115); Osmolality Calculated 294 mOsm/kg (285-295); Potassium 4.3 mmol/L (3.5-5.1); Sodium 141 mmol/L (136-145); Total Bilirubin 0.3 mg/dL (0.15-1.2); Total Protein 5.4 g/dL (6.6-8.7)
--- NOTE | 2024-10-21 05:35 | PC.NURSE ---
Went in patient's room to do wipe down (Chlorhexidine wipes) and patient was educated on this. Patient stated my surgery isn't supposed to be until the afternoon. Wipe down not completed at this time due to unknown time of surgery.
[2024-10-21] MEDS: albuterol 2.5 mg/3 mL Neb INHALATION ×3 (08:25→15:56)
--- NOTE | 2024-10-21 08:51 | PC.SOCIAL ---
IMM Updated Updated pt on IMM. No questions voiced. Provided pt a copy. Initialed, dated, & timed a copy & placed in chart.
[2024-10-21] MEDS: carBAMazepine 200 mg Tablet PO (09:04)
[2024-10-21] MEDS: cefTRIAXone 1,000 mg SDV 1000 MG IVP (09:04)
[2024-10-21] MEDS: risperiDONE 0.25 mg Tablet PO (09:04)
[2024-10-21] MEDS: lacosamide 50 mg Tablet 200 MG PO (09:04)
[2024-10-21] MEDS: HYDROcodone-acetaminophen 5-325 mg Tablet 1 TAB PO (09:10)
[2024-10-21] MEDS: topiramate 25 mg Tablet 50 MG PO (09:30)
--- NOTE | 2024-10-21 09:51 | ECG_ITS ---
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 Measurements Intervals [place] Rate: 79 P: 71 WV: 168 QRS: 28 QRSD: 97 T: 31 QT: 382 QTc: 439 Interpretive Statements SINUS RHYTHM Compared to ECG 10/21/2024 09:59:40 No significant changes Electronically Signed On 10-22-2024 10:23:09 CASINO PORTER by Tanner Salazar M.D. [id number]
--- NOTE | 2024-10-21 09:52 | PC.NURSE ---
Nurse observed ST elevation on the hospital wide telemetry displayed in ICU, patient is currently on med surge unit. Further investigation shows Elevation is present in leads 1, 2, and AVL and started approximately 20 minutes ago. Nurse alerted Dr coon, received orders for EKG. Nurse alerted Med surge nurse to findings and new orders.
[2024-10-21 10:35] LABS: C Reactive Protein 116.4 mg/L (0.0-4.9)
[2024-10-21 10:37] LABS: Troponin(5th) Baseline 20 ng/L (0-10)
--- NOTE | 2024-10-21 11:51 | ECG_ITS ---
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 Measurements Intervals [place] Rate: 85 P: 72 DC: 165 QRS: 21 QRSD: 90 T: 4 QT: 362 QTc: 432 Interpretive Statements SINUS RHYTHM Compared to ECG 10/20/2024 16:21:12 No significant changes Electronically Signed On 10-22-2024 10:36:24 PACK PRESS OPERATOR by Tanner Salazar M.D. [id number]
[2024-10-21 12:28] LABS: Troponin 5 2HR 16.94 ng/L (0-10); Troponin 5 2HR Delta -3.06 ABS# (0-10)
--- NOTE | 2024-10-21 14:51 | P.ANESASSM_ITS ---
Pre-Anesthetic Assessment Height/Weight: Height 1.63 m Weight 83.518 kg Temp Pulse Resp BP Pulse Ox O2 Del Method 98.3 F 88 16 148/77 93 Room Air 10/21/24 11:36 10/21/24 12:07 10/21/24 12:00 10/21/24 11:36 10/21/24 12:00 10/21/24 12:00 Preop Diagnosis: Right hip displaced femoral neck fracture Operation Date: 10/21/24 17:40 Proposed Procedures p Hardware Removal Retrograde IM Nail Femur(Right) - Emmanuel Sidhu DO s Hemiarthroplasty Hip(Right) - Emmanuel Sidhu DO Familial anesthetic complications: None Was Beta Lia taken within 24 hours: N/A Was Clonidine taken within 24 hours: N/A Last intake: Intake Last Liquid Date 10/20/24 Last Liquid Time 21:00 Last Solid Date 10/20/24 Last Solid Time 14:00 Social No alcohol and No tobacco Exam alert, oriented x 3, clear to auscultation bilaterally and regular rate & rhythm Airway Mallampati: Class II Pulmonary Chronic Obstructive Pulmonary Disease CV/HEM Hypertension and Peripheral Vascular Disease GI Gastroesophageal Reflux Disease Metabolic Hyperlipidemia Neuropsych Seizure Anesthetic Plan ASA status: 3 Anesthesia: General Risk of > 500 ml blood loss (7ml/kg in children): No Medications/Allergies Home Medications Medication Instructions Recorded Confirmed Last Taken Type albuterol sulfate 90 mcg/actuation 1 inh inhalation Q4H PRN Shortness 12/28/19 10/20/24 Unknown History aerosol inhaler (Ventolin HFA) Of Breath aspirin 81 mg chewable tablet 81 mg PO DAILY 12/28/19 10/20/24 10/20/24 History (Ranjeet Chewable Low Dose Aspirin) bisacodyl 10 mg rectal suppository 10 mg SC DAILY PRN Constipation 12/28/19 10/20/24 10/20/24 History carbamazepine 200 mg tablet 200 mg PO BID 12/28/19 10/20/24 10/20/24 History chlorhexidine gluconate 0.12 % 15 ml buccal BID 12/28/19 10/20/24 10/20/24 History mouthwash dextromethorphan-guaifenesin 10 5 ml PO Q4H PRN Cough 12/28/19 10/20/24 Unknown History mg-100 mg/5 mL oral liquid (Diabetic Tussin DM) epinephrine 0.3 mg/0.3 mL 0.3 ml IM ONCE PRN Allergic 12/28/19 10/20/24 Unknown History injection, auto-injector (EpiPen Reaction 2-Ortega) ferrous sulfate 325 mg (65 mg 325 mg PO DAILY 12/28/19 10/20/24 10/20/24 History iron) tablet losartan 50 mg tablet 50 mg PO DAILY 12/28/19 10/20/24 10/20/24 History lovastatin 20 mg tablet 20 mg PO DAILY 12/28/19 10/20/24 10/20/24 History metoprolol tartrate 50 mg tablet 50 mg PO BID 12/28/19 10/20/24 10/20/24 History nitroglycerin 0.4 mg sublingual 0.4 mg sublingual Q5M PRN Chest 12/28/19 10/20/24 Unknown History tablet (Nitrostat) Pain ondansetron HCl 4 mg tablet 4 mg PO Q4H PRN Nausea 12/28/19 10/20/24 Unknown History potassium chloride 10 mEq 10 meq PO BID 12/28/19 10/20/24 10/20/24 History capsule,extended release risperidone 0.25 mg tablet 0.25 mg PO BID 12/28/19 10/20/24 10/20/24 History topiramate 50 mg tablet 50 mg PO BID 12/28/19 10/20/24 10/20/24 History trazodone 50 mg tablet 50 mg PO .at bedtime #30 tabs 04/01/21 10/20/24 10/20/24 Rx DME: Jaylon #1 ea 09/21/22 10/20/24 Unknown Rx lacosamide 200 mg tablet (Vimpat) 200 mg PO BID #60 tabs 01/25/23 10/20/24 10/20/24 Rx calcium 500 mg (as 1 tab PO DAILY 05/04/23 10/20/24 10/20/24 History carbonate)-vitamin D3 5 mcg (200 unit) tablet (Oysco 500/D) arformoterol 15 mcg/2 mL solution 2 ml inhalation QAM 05/05/23 10/20/24 10/20/24 History for nebulization (Brovana) camphor 4.7 %-eucalyptus oil 1.2 1 applic topical BID PRN Cough 05/05/23 10/20/24 Unknown History %-menthol 2.6 % topical ointment (Vicks Vaporub) ipratropium 0.5 mg-albuterol 3 mg 3 ml inhalation Q6H PRN Shortness 05/05/23 10/20/24 Unknown History (2.5 mg base)/3 mL nebulization Of Breath soln sennosides 8.6 mg tablet (senna) 8.6 mg PO BEDTIME PRN Constipation 05/05/23 10/20/24 10/20/24 History Lateral Manufacturing Production Manager Brace #1 ea 07/21/23 10/20/24 Unknown Rx pantoprazole 40 mg tablet,delayed 40 mg PO DAILY 08/05/24 10/20/24 10/20/24 History release (Protonix) Hinged Knee brace #1 ea 09/29/24 10/20/24 Unknown Rx mupirocin 2 % topical ointment 1 applic topical BID #15 grams 10/13/24 10/20/24 10/20/24 Rx docusate sodium 100 mg capsule 100 mg PO BID 10/15/24 10/20/24 10/20/24 History furosemide 40 mg tablet 40 mg PO DAILY 10/20/24 10/20/24 10/20/24 History oxycodone 5 mg tablet 5 mg PO Q6H 10/20/24 10/20/24 Unknown History polyethylene glycol 3350 17 4 g PO DAILY 10/20/24 10/20/24 10/18/24 History gram/dose oral powder Allergies Allergy/AdvReac Type Severity Reaction Status Date / Time lisinopril Allergy ALGY-Anaphy Verified 10/13/24 14:38 laxis Current Medications Generic Name Dose Route Start Last Admin Trade Name Freq PRN Reason Stop Dose Admin Hydrocodone Bitart/Acetaminophen 1 tab 10/20/24 20:27 10/21/24 09:10 Hydrocodone-Acetaminophen 5-325 Mg Tablet PO 1 tab Q4H PRN Administration MODERATE PAIN Albuterol Sulfate 2.5 mg 10/20/24 20:00 10/21/24 12:00 Albuterol 2.5 Mg/3 Ml Neb INHALATION 2.5 mg QID.RESPIRATORY ANT Administration Carbamazepine 200 mg 10/20/24 18:03 10/21/24 09:04 Carbamazepine 200 Mg Tablet PO 200 mg BID ANT Administration Ceftriaxone Sodium 1,000 mg 10/21/24 08:15 10/21/24 09:04 Ceftriaxone 1,000 Mg Sdv IVP 1,000 mg Q24H ANT Administration Protocol Docusate Sodium 100 mg 10/20/24 18:03 10/20/24 19:32 Docusate Sodium 100 Mg Capsule PO 100 mg BID ANT Administration Sodium Chloride 1,000 mls @ 75 mls/hr 10/20/24 17:15 10/21/24 08:55 Sodium Chloride 0.9% IV Infused .[id number] ANT Infusion Lacosamide 200 mg 10/20/24 18:15 10/21/24 09:04 Lacosamide 50 Mg Tablet PO 200 mg BID ANT Administration Metoprolol Tartrate 50 mg 10/20/24 18:03 10/20/24 19:31 Metoprolol Tartrate 50 Mg Tablet PO 50 mg BID ANT Administration Morphine Sulfate 2 mg 10/20/24 17:13 10/20/24 23:05 Morphine 4 Mg/Ml Sdv 1 Ml IVP 2 mg Q4H PRN Administration SEVERE PAIN Pantoprazole Sodium 40 mg 10/20/24 17:30 10/20/24 19:32 Pantoprazole 40 Mg Sdv IVP 40 mg Q24H ANT Administration Risperidone 0.25 mg 10/20/24 18:03 10/21/24 09:04 Risperidone 0.25 Mg Tablet PO 0.25 mg BID ANT Administration Topiramate 50 mg 10/20/24 18:15 10/21/24 09:30 Topiramate 25 Mg Tablet PO 50 mg BID ANT Administration Trazodone HCl 50 mg 10/20/24 21:00 10/20/24 20:45 Trazodone 50 Mg Tablet PO 50 mg BEDTIME ANT Administration PFSH Anesthesia Medical History DNR no code (do not resuscitate) COVID-19 Low serum iron Obesity, morbid, BMI 40.0-49.9 Vitamin D deficiency Urinary incontinence in female Osteoporosis Lives in assisted living facility GERD (gastroesophageal reflux disease) Essential (primary) hypertension Dyslipidemia DJD (degenerative joint disease) COPD mixed type Chronic constipation Complex partial epilepsy Surgical History History of total hysterectomy Family History Mother Diabetes Heart disease Family/Other Diabetes Aunt Father Heart disease Social History Smoking and tobacco/nicotine status: never used tobacco/nicotine Second hand smoke exposure: No Substance/Drug Use: never Lives independently: No Housing: Assisted Living Facility Marital status: Current occupational status: retired Data Anesthesia 10/21/24 04:50 10/21/24 04:50 Short CBC 10/20/24 10/20/24 10/21/24 Range/Units 15:54 18:21 04:50 WBC Cancelled 9.97 7.30 Hgb Cancelled 13.60 12.00 Hct Cancelled 43.4 38.8 MCV Cancelled 94.3 95.6 Plt Count Cancelled 248 221 Neut % (Auto) Cancelled 72.2 55.1 Neut # (Auto) Cancelled 7.19 4.02 BMP 10/20/24 10/21/24 15:54 04:50 Sodium 136 141 Potassium 3.9 4.3 Chloride 104 111 H Carbon Dioxide 22 21 L BUN 20 19 Creatinine 0.8 0.7 Glucose 129 H 98 Calcium 8.5 8.1 L Cardiac Enzymes 10/20/24 10/21/24 10/21/24 Range/Units 15:54 10:11 11:56 Troponin T Baseline 20 H (0-10) ng/L Troponin T 120 Minute 16.94 H (0-10) ng/L Delta Troponin T -3.06 L (0-10) ABS# NT-Pro-B Natriuret Pep 500 H (0-450) pg/mL Liver Function 10/20/24 10/20/24 10/21/24 Range/Units 15:54 18:45 04:50 Total Bilirubin 0.3 0.3 (0.15-1.2) mg/dL GGT 536 H (5-36) U/L AST 67 H 29 (0-32) U/L ALT 64 H 42 H (0-33) U/L Alkaline Phosphatase 290 H 217 H (35-105) U/L Albumin 3.3 L 2.8 L (3.5-5.2) g/dL Urine 11/21/24 Range/Units 23:15 Urine Color Dark yellow A (Yellow) Urine Appearance Clear (CLEAR) Urine pH 6.0 (5-7) Ur Specific [place] 1.028 (1.005-1.030) Urine Protein 1+ A (Negative) Urine Glucose (UA) Negative (Normal) Urine Ketones Negative (Negative) Urine Nitrate Negative (Negative) Urine Bilirubin Negative (Negative) Ur Leukocyte Esterase Trace A (Negative) Urine RBC 6-10 (0-2) /hpf Urine WBC 11-20 H (0-5) /hpf Blood Bank 10/20/24 18:45 Blood Type O Positive Rho(D) Type Rh positive Antibody Screen Negative Coags 10/20/24 10/21/24 15:54 10:11 PT 13.70 INR 1.01 C-Reactive Protein 148.9 H 116.4 H Cardiac Studies: 2 No Data to Display
--- NOTE | 2024-10-21 15:00 | PICC.NOTE ---
Pt transferred from Med-surg to OPS via bed. Upon assessment of already established saline lock to left upper arm, site noted to be infiltrated. No blood return evident and unable to flush. Left upper arm extremely edematous. Pt denies pain. IV dc'd. Using ultrasound guidance, 20 gauge IV started to left AC x 1 stick. Good blood return noted. Flushed without difficulty. IV NS running at TKO prior to surgery. Anesthesia notified of infiltration to left upper arm.
--- NOTE | 2024-10-21 15:04 | P.PN_ITS ---
Subjective 2 Subjective: Patient was seen this morning, she is alert oriented x 3, following all commands, complaints of right hip pain, no nausea, no vomiting, no abdominal pain Vitals/I&O/Wt Last Vital Signs Temp 98.3 F 10/21/24 11:36 Pulse 88 10/21/24 12:07 Resp 16 10/21/24 12:00 BP 148/77 10/21/24 11:36 Pulse Ox 93 10/21/24 12:00 O2 Del Method Room Air 10/21/24 12:00 10/21/24 10/21/24 10/21/24 06:59 14:59 22:59 Intake Total 1000 / 1000 Output Total 500 / 500 Balance -500 / -500 1000 / 1000 Weight last 48 hrs Weight 83.518 kg Weight 79.832 kg Weight 79.832 kg Physical Exam 2 Const: COMMON NORMALS: no acute distress ORIENTATION/CONSCIOUSNESS: Yes awake, Yes oriented to person and Yes oriented to place Resp: COMMON NORMALS: normal respiratory effort, No retractions, No use of accessory muscles and clear to auscultation bilaterally AUSCULTATION: clear to auscultation bilaterally Cardio: COMMON NORMALS: regular rate, regular rhythm, S1 normal heart sound present and S2 normal heart sound present RATE: regular rate RHYTHM: r egular rhythm HEART SOUNDS: S1 normal heart sound present and S2 normal heart sound present GI: COMMON NORMALS: Normal to inspection, nondistended, normoactive bowel sounds present and non-tender Extremity: COMMON NORMALS: no pedal edema Neuro: SENSORIUM/ORIENTATION: Yes oriented to person and Yes oriented to place Psych: COMMON NORMALS: mental status grossly normal Urinary Catheter Management: [place]: Cath Placed During This Visit: yes Reason for Continuing Indwelling Catheter: Perioperative Use in Selected Surgeries Urinary Catheter Date of Insertion: 10/20/24 Urinary Catheter Time of Insertion: 16:45 Data 10/21/24 04:50 10/21/24 04:50 A&P Assessment and plan (1) Obesity, morbid, BMI 40.0-49.9: (2) Essential (primary) hypertension: (3) Fall: (4) Closed fracture of right hip: Plan Fall ? Sounds like mechanical fall -CT head no acute findings -CT of the right femur CT/CT femur RT wo con* [id number] IMPRESSION: Right femoral subcapital fracture with cranial displacement and small right hip joint effusion. UTI, Rocephin Right hip fracture -Morphine for pain control -S CDs for DVT prophylaxis, Lovenox currently on hold as there is plans on surgery -N.p.o. -PT OT after surgery -IV fluids History of seizures -Continue carbamazepine, lacosamide, Topamax CODE STATUS DNR/DNI, SCDs for DVT prophylaxis Attestations 2 Medical Necessity Statement*: Patient requires hospitalization for right hip fracture, UTI Diagnoses Obesity, morbid, BMI 40.0-49.9 E66.01 Essential (primary) hypertension I10 Fall W19.XXXA Closed fracture of right hip S72.001A
[2024-10-21 15:19] LABS: Basophils % 0.4 %; Eosinophils # 0.1 10^3/uL (0.0-0.8); Eosinophils % 0.6 %; Hematocrit 39.2 % (36-47); Lymphocytes # 1.5 10^3/uL (0.8-4.8); Lymphocytes % 13.7 %; Mean Corpuscular HGB Conc 31.4 g/dL (30-55); Mean Corpuscular Hemoglobin 29.7 pg (27-33); Mean Corpuscular Volume 94.7 fl (85-98); Mean Platelet Volume 9.2 fL (7.4-10.4); Monocytes # 1.2 10^3/uL (0.2-0.9); Monocytes % 11.3 %; Neutrophils # 7.93 10^3/uL (1.8-7.7); Neutrophils % 73.3 %; Nucleated Red Blood Cells % 0 %; Platelet Count 243 10^3/cmm (157-399); Red Blood Count 4.14 10^6/uL (3.85-5.65); Red Cell Distribution Width 14.4 % (12.1-15.1); White Blood Count 10.82 10^3/uL (3.29-11.43)
[2024-10-21] MEDS: ketorolac 30 mg/mL INJ IVP (15:22)
[2024-10-21] MEDS: acetaminophen 1,000 MG/100 ML PIGGYBACK 400 MG IV (15:23)
[2024-10-21] MEDS: sodium chloride 0.9% 1,000 ML 30 ML IV (15:27)
[2024-10-21 15:42] LABS: Anion Gap 16.3 (5-19); Blood Urea Nitrogen 18 mg/dL (8-23); Calcium 8.4 mg/dL (8.5-10.5); Carbon Dioxide 20 mmol/L (22-29); Chloride 108 mmol/L (98-107); Creatinine Clr Calc Pharmacy 53.7521; Glucose 115 mg/dL (65-115); Osmolality Calculated 293 mOsm/kg (285-295); Potassium 4.3 mmol/L (3.5-5.1); Sodium 140 mmol/L (136-145)
[2024-10-21 16:09] LABS: Troponin 5 6HR 27.24 ng/L (0-10); Troponin 5 6HR Delta 7.24 ng/L (0-12)
--- NOTE | 2024-10-21 16:42 | W.PM.OPSUD ---
Surgery/Procedure H&P Update DATE OF PROCEDURE: October 21, 2024 DATE H&P PERFORMED: 10/20/24 H&P UPDATE INFORMATION: I have reviewed H&P completed within last 30 days, I have examined patient prior to procedure and No changes to prior documentation PREOP DIAGNOSIS: Right hip displaced femoral neck fracture PRIMARY INDICATION FOR PROCEDURE: Right hip displaced femoral neck fracture with retained retrograde femoral nail PLANNED PROCEDURE: Operation Date: 10/21/24 17:40 Proposed Procedures p Hardware Removal Retrograde IM Nail Femur(Right) - DO chuy Shaw Hemiarthroplasty Hip(Right) - Emmanuel Sidhu DO
--- NOTE | 2024-10-21 17:00 | XR_ITS ---
WS: [id number] Right femur and thigh, C-arm fluoroscopy views, 10/21/2024 Clinical Data: HARDWARE REMOVAL RT FEMUR; OR PICS Comparison: Right thigh and femur, 10/20/2024 Findings: The intramedullary italo and distal orthopedic screws have been removed. XR/XR femur RT min 2V* [id number] Impression: Removal of right femoral intramedullary italo and distal femoral orthopedic screw s.
[2024-10-21] MEDS: ceFAZolin 2,000 mg SDV 2000 MG IVP (17:06)
[2024-10-21] MEDS: tranexamic acid 1,000 mg/10mL SDV 1000 MG IV (18:14)
--- NOTE | 2024-10-21 18:20 | ANES.PROC ---
Anesthesia Procedures Procedure/Date: 10/21/24 Central Venous Insert: Central Venous Line: R internal jugular Time Out Performed: Yes Consent: requested by attending/covering physician, from other, risks and benefits reviewed and emergency procedure Central Line: New Anesthesia monitors: pulse oximetry, EKG, BP cuff and oxygen Vein cannulated: right internal jugular Ultrasound used: to identify patency to vessel and to visualize needle entry to vein Additional Comments: Patient lost IV access intraop, 3 failed attempts at replacement necessitated placement of R IJ central line, wire confirmed in vein using ultrasound in-plane and out of plane Sterile prep and full-bod drape, US to visualize vessel and 18g needle passed using seldinger technique, wire confirmed in vessel, dilated vein, placed triple lumen, wire removed, biopatch and sutured line with sterile cover/dressing applied
--- NOTE | 2024-10-21 18:23 | XRR_ITS ---
PROCEDURE INFORMATION: Exam: XR Chest Exam date and time: 10/21/2024 11:09 PM Age: 84 years old Clinical indication: Other vascular access device placement or adjustment; Central line, non-tunnelled; Patient HX: Central line confirmation TECHNIQUE: Imaging protocol: Radiologic exam of the chest. Views: 1 view. COMPARISON: CR XR chest 1V portable [id number] 10/20/2024 3:30 PM FINDINGS: Tubes, catheters and devices: Right-sided central venous catheter with its distal tip at the superior atriocaval junction. Lungs: Unremarkable. No consolidation. Pleural spaces: Unremarkable. No pleural effusion. No pneumothorax. Heart/Mediastinum: Mild cardiomegaly. Hiatal hernia. Vasculature: Tortuosity of the thoracic aorta. Bones/joints: Unremarkable. XR/XR chest 1V portable [id number] IMPRESSION: As above.
--- NOTE | 2024-10-21 18:42 | SUR.OPER ---
1837 notified niece, Lissette, of pt's status via phone.
--- NOTE | 2024-10-21 21:27 | SUR.OPER ---
2 2GMS ANCEF GIVEN TO PT VIA IVP BY AUGIE WILLAMS
[2024-10-21] MEDS: VANCOMYCIN ADD-Vantage 1,000 MG VIAL 1000 MG INTRA-ARTI (21:55)
--- NOTE | 2024-10-21 22:50 | W.PM.BPON ---
Date of Procedure: [] Surgeon: Emmanuel Sidhu DO Staff Software Engineer(s): Rakan Sidhu PA-C Procedure(s) performed: Right femur removal of deep orthopedic hardware (6 screws, 1 intramedullary italo) Right hip hemiarthroplasty cemented posterior approach Findings of the procedure(s): Patient had a displaced right hip femoral neck fracture underwent removal of right femur retrograde nail all 6 screws were removed out of the nail and subsequently the intramedullary italo italo was then removed atraumatically. Subsequently then incisions were all then closed and patient was reprepped for the right hip hemiarthroplasty underwent a right hip hemiarthroplasty cemented posterior approach tolerated procedure well without issues or complications. Taken back to PACU in stable condition. Estimated blood loss: 600 mL Specimen(s) removed: Femoral head removed, 6 screws and 1 intramedullary retrograde femur italo removed Post-operative diagnosis: Right hip displaced femoral neck fracture
--- NOTE | 2024-10-21 22:52 | PM.OP ---
Operative Report Date of procedure: October 21, 2024 Surgeon: Emmanuel Sidhu DO
--- NOTE | 2024-10-21 23:01 | XRR_ITS ---
PROCEDURE INFORMATION: Exam: XR Pelvis Exam date and time: 10/21/2024 11:10 PM Age: 84 years old Clinical indication: Pelvic pain; Prior surgery; Surgery date: Post-operative (0-2 days); Surgery type: Post op RT femoral hardware removal with RT hemiarthroplasty TECHNIQUE: Imaging protocol: Radiologic exam of the pelvis. Views: 1 or 2 view. COMPARISON: CR XR hip RT 2-3V wo/w pel* [id number] 10/20/2024 3:32 PM FINDINGS: Bones/joints: Postoperative changes of right total hip arthroplasty. Diffusely decreased mineralization of the bony structures. Chronic fracture deformity of the right inferior pubic ramus. Soft tissues: Unremarkable. Intraperitoneal space: The pelvis appears intact. XR/XR pelvis 1-2V* [id number] IMPRESSION: As above.
--- NOTE | 2024-10-21 23:01 | XRR_ITS ---
PROCEDURE INFORMATION: Exam: XR Right Femur Exam date and time: 10/21/2024 11:10 PM Age: 84 years old Clinical indication: Pain; Thigh; Right; Prior surgery; Surgery date: Post-operative (0-2 days); Surgery type: Post op RT femoral hardware removal with RT hemiarthroplasty TECHNIQUE: Imaging protocol: Radiologic exam of the right femur. Views: 2 views. COMPARISON: OT XR femur RT min 2V* [id number] 10/21/2024 7:32 PM FINDINGS: Tubes, catheters and devices: The hardware appears in proper position. Hardware appears intact. Bones/joints: Postoperative changes related to right total hip arthroplasty. Soft tissues: Postoperative changes of the overlying soft tissues. XR/XR femur RT min 2V* [id number] IMPRESSION: As above.
--- NOTE | 2024-10-21 23:30 | PM.PACU ---
PACU note Narrative: Patient is a 84-year-old female just underwent a right hip orthopedic hardware removal and right hip hemiarthroplasty. Pt transferred to PACU in stable condition. Dressing is dry. Compartments are soft and compressible. Pt is awake and alert. pt can wiggle toes and plantarflex and dorsiflex foot. Distal pulses are palpable toes are warm and well-perfused. Cap refill is normal and under 2 seconds. Sensation to foot is intact. Pain is controlled. Exam: awake Disposition: back to floor
[2024-10-22] VITALS (13 sets, daily range): BP systolic 89–127; BP diastolic 60–85; PULSE 70–108; RESP 14–18; TEMP 36.3–37.2; O2SAT 92–97
[2024-10-22] MEDS: sodium chloride 0.9% 1,000 ML 75 ML IV (00:01)
[2024-10-22] MEDS: morphine 4 mg/mL SDV 1 mL 2 MG IVP ×3 (00:08→09:17)
[2024-10-22] MEDS: ceFAZolin 2,000 MG in sodium chloride 0.9% (plus) 50 ML 100 MG IV ×3 (00:19→17:44)
[2024-10-22] MEDS: HYDROcodone-acetaminophen 5-325 mg Tablet 1 TAB PO ×3 (01:23→17:55)
[2024-10-22] MEDS: tranexamic acid 1,000 MG/100 ML PREMIX 600 MG IV (01:27)
--- NOTE | 2024-10-22 01:58 | ECG_ITS ---
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 Measurements Intervals [place] Rate: 100 P: 75 NV: 183 QRS: 3 QRSD: 90 T: 30 QT: 340 QTc: 439 Interpretive Statements SINUS TACHYCARDIA ABNORMAL RHYTHM ECG Compared to ECG 10/21/2024 12:04:55 Sinus rhythm no longer present Electronically Signed On 10-22-2024 10:18:41 SANDFILL OPERATOR by Tanner Salazar M.D. [id number]
--- NOTE | 2024-10-22 02:06 | PC.NURSE ---
Patients heart rate got up to 140 and was complaining on neck pain on their right side where their central line is. Patient was given PRN Morphine at 0008 IVP and Oral Hydrocodone 5-325 at 0153. Patient was readjusted into the bed and the patients fluids was stopped. EKG was collected and showed sinus tachycardia with abnormal rhythm. Blood pressure was 137/74, Spo2-98% on RA. Patient continues to be alert and orientated. Patients heart rate is currently 107. Dr. Kim was called and notified of the situation. Dr. Kim stated to currently hold fluids and continue to monitor and treat pain. If the patient condition worsens to notify him.
[2024-10-22] MEDS: metoprolol tartrate 50 mg Tablet PO ×3 (02:34→17:45)
[2024-10-22 05:14] LABS: Basophils % 0.2 %; Lymphocytes # 1.1 10^3/uL (0.8-4.8); Lymphocytes % 7.1 %; Mean Corpuscular HGB Conc 30.6 g/dL (30-55); Mean Corpuscular Hemoglobin 29.6 pg (27-33); Mean Platelet Volume 9.2 fL (7.4-10.4); Monocytes # 1.9 10^3/uL (0.2-0.9); Monocytes % 11.8 %; Neutrophils % 80.2 %; Nucleated Red Blood Cells % 0 %; Platelet Count 220 10^3/cmm (157-399); Red Blood Count 3.61 10^6/uL (3.85-5.65); Red Cell Distribution Width 14.2 % (12.1-15.1); White Blood Count 16.08 10^3/uL (3.29-11.43)
[2024-10-22 05:41] LABS: Alanine Aminotransferase 27 U/L (0-33); Albumin Level 2.7 g/dL (3.5-5.2); Alkaline Phosphatase 179 U/L (35-105); Anion Gap 14.2 (5-19); Aspartate Amino Transferase 19 U/L (0-32); Blood Urea Nitrogen 18 mg/dL (8-23); Calcium 7.6 mg/dL (8.5-10.5); Carbon Dioxide 19 mmol/L (22-29); Chloride 112 mmol/L (98-107); Creatinine Clr Calc Pharmacy 53.7521; Globulin 2.6 g/dL (1.3-4.6); Glucose 121 mg/dL (65-115); Osmolality Calculated 295 mOsm/kg (285-295); Potassium 4.2 mmol/L (3.5-5.1); Sodium 141 mmol/L (136-145); Total Bilirubin 0.2 mg/dL (0.15-1.2); Total Protein 5.3 g/dL (6.6-8.7)
[2024-10-22] MEDS: albuterol 2.5 mg/3 mL Neb INHALATION ×4 (08:25→21:32)
--- NOTE | 2024-10-22 08:58 | XRR_ITS ---
PROCEDURE INFORMATION: Exam: XR Chest Exam date and time: 10/22/2024 11:46 AM Age: 84 years old Clinical indication: Shortness of breath; Patient HX: SOB TECHNIQUE: Imaging protocol: Radiologic exam of the chest. Views: 1 view. COMPARISON: CR (CHEST, ) 10/21/2024 11:09 PM FINDINGS: Tubes, catheters and devices: Right internal jugular central line is at the superior cavoatrial junction. Lungs: Unremarkable. No consolidation. Pleural spaces: Unremarkable. No pleural effusion. No pneumothorax. Heart/Mediastinum: Moderate hiatal hernia. The heart is enlarged. Vasculature: Unfolding of the thoracic aorta. Bones/joints: Post right distal claviculectomy. Demineralization of the visualized bones, limiting sensitivity for nondisplaced fractures. XR/XR chest 1V portable [id number] IMPRESSION: No acute cardiopulmonary process.
[2024-10-22] MEDS: calcium carb-vit d 600mg/400unit 1 Tablet 1 EACH PO ×2 (09:14→17:45)
[2024-10-22] MEDS: carBAMazepine 200 mg Tablet PO ×2 (09:14→17:45)
[2024-10-22] MEDS: risperiDONE 0.25 mg Tablet PO ×2 (09:14→17:45)
[2024-10-22] MEDS: topiramate 25 mg Tablet 50 MG PO ×2 (09:15→17:44)
[2024-10-22] MEDS: docusate sodium 100 mg Capsule PO ×2 (09:15→17:45)
[2024-10-22] MEDS: atorvastatin 40 mg Tablet 20 MG PO (09:15)
[2024-10-22] MEDS: cefTRIAXone 1,000 mg SDV 1000 MG IVP (09:15)
[2024-10-22] MEDS: aspirin 81 mg Chew Tablet PO (09:15)
[2024-10-22] MEDS: multivitamin therapeutic Tablet 1 TAB PO (09:15)
[2024-10-22] MEDS: lacosamide 50 mg Tablet 200 MG PO ×2 (09:15→17:45)
[2024-10-22] MEDS: iron polysaccharide complex 150 mg Capsule PO ×2 (09:15→17:45)
[2024-10-22] MEDS: chlorhexidine gluconate 0.12% Btl 473 mL 30 ML MUCOUS MEM ×3 (09:16→20:06)
[2024-10-22] MEDS: mupirocin oint 22 gm 1 APPLIC NASAL ×2 (09:16→17:45)
[2024-10-22 11:13] LABS: C Reactive Protein 168.7 mg/L (0.0-4.9)
[2024-10-22 11:20] LABS: Procalcitonin 0.11 ng/mL (0-0.5)
[2024-10-22] MEDS: enoxaparin 40 mg/0.4 mL Syringe SUBCUT (13:46)
[2024-10-22] MEDS: acetaminophen 325 mg Tablet 650 MG PO (13:46)
--- NOTE | 2024-10-22 14:27 | CTR_ITS ---
PROCEDURE INFORMATION: Exam: CT Chest Without Contrast; Diagnostic Exam date and time: 10/22/2024 2:52 PM Age: 84 years old Clinical indication: Abnormal findings; Abnormal lab test; Other: Leukocytosis, elevated crp; Abnormal diagnostic tests; Prior surgery; Surgery date: Post-operative (0-2 days); Surgery type: Hip TECHNIQUE: Imaging protocol: Diagnostic computed tomography of the chest without contrast. Radiation optimization: All CT scans at this facility use at least one of these dose optimization techniques: automated exposure control; mA and/or kV adjustment per patient size (includes targeted exams where dose is matched to clinical indication); or iterative reconstruction. COMPARISON: CR (CHEST, ) 10/22/2024 11:46 AM RADIATION DOSE METRICS: Total DLP (mGy-cm): 958.28 FINDINGS: Tubes, catheters and devices: Right internal jugular central line tip is in the superior cavoatrial junction. Thyroid: There is a 3.5 cm right thyroid nodule. Lungs: Atelectatic changes in bilateral lower lobes. Pleural spaces: Unremarkable. No pneumothorax. No pleural effusion. Heart: Unremarkable. No cardiomegaly. No pericardial effusion. Lymph nodes: Unremarkable. No enlarged lymph nodes. Vasculature: Calcified atheromas of the visualized arteries. Diaphragm: Moderate hiatal hernia. Bones/joints: Chronic deformity of the right humeral head. There are moderate degenerative changes of the glenohumeral joint. Multilevel [id number] compression deformities of the thoracic spine. Soft tissues: Unremarkable. COMMENTS: Consistent with the [employer]'s Incidental Findings Committee white paper (J Am Tiffany Radiol 2015): In patients aged 35 years and older with an incidental thyroid nodule equal to or greater than 1.[address], MRI or extrathyroidal US, further evaluation with dedicated thyroid US is recommended for patients with normal life expectancy and without comorbidities. For smaller nodules without suspicious features, no further evaluation or follow up is recommended. PROCEDURE INFORMATION: Exam: CT Abdomen And Pelvis Without Contrast Exam date and time: 10/22/2024 2:52 PM Age: 84 years old Clinical indication: Abnormal findings; Abnormal lab test; Other: Leukocytosis, elevated crp; Abnormal diagnostic tests; Prior surgery; Surgery date: Post-operative (0-2 days); Surgery type: Hip TECHNIQUE: Imaging protocol: Computed tomography of the abdomen and pelvis without contrast. Radiation optimization: All CT scans at this facility use at least one of these dose optimization techniques: automated exposure control; mA and/or kV adjustment per patient size (includes targeted exams where dose is matched to clinical indication); or iterative reconstruction. COMPARISON: CR (PELVIS, ) 10/21/2024 11:10 PM RADIATION DOSE METRICS: Total DLP (mGy-cm): 958.28 FINDINGS: Liver: Normal. No mass. Gallbladder and biliary ducts: There has been a cholecystectomy. There is dilatation of the CBD measuring 2.5 cm, likely representing reservoir effect. Pancreas: Normal. No ductal dilation. Spleen: Normal. No splenomegaly. Adrenal glands: Normal. No mass. Kidneys and ureters: Normal. No hydronephrosis. Stomach and bowel: There is diverticulosis of the sigmoid colon. The colon is on the left side of the abdomen and small bowel loops are on the right side of the abdomen, suggestive of malrotation. No bowel obstruction. Appendix: No evidence of appendicitis. Intraperitoneal space: Unremarkable. No free air. No significant fluid collection. Vasculature: Calcified atheromas of the visualized arteries. Lymph nodes: Unremarkable. No enlarged lymph nodes. Urinary bladder: Richmnod catheter in the bladder. Reproductive: Unremarkable as visualized. Bones/joints: Right hip arthroplasty. Demineralization of the visualized bones, limiting sensitivity for nondisplaced fractures. Retropulsion of the upper aspect of the L1 vertebral body with mild focal increased kyphosis at T12-L1. Soft tissues: Postop soft tissue emphysema surrounding the right hip in the gluteus muscles. CT/[place] [id number] IMPRESSION: No acute cardiopulmonary process. IMPRESSION: 1. Post right total hip arthroplasty with expected postop soft tissue emphysema. No large collections. 2. No acute intra-abdominal process.
--- NOTE | 2024-10-22 14:28 | P.PN_ITS ---
Subjective 2 Subjective: Patient was seen this morning, she does report a cough, no fevers, no chills, we discussed her leukocytosis, no history of bedsores, no calf pain, no chest pain, no flank pain Vitals/I&O/Wt Last Vital Signs Temp 97.8 F 10/22/24 12:00 Pulse 74 10/22/24 12:00 Resp 16 10/22/24 12:00 BP 89/60 10/22/24 12:00 Pulse Ox 92 10/22/24 12:00 O2 Del Method Room Air 10/22/24 12:00 O2 Flow Rate 4 10/21/24 23:26 10/21/24 10/22/24 10/22/24 22:59 06:59 14:59 Intake Total 100 / 1100 1150 / 2250 1602.5 / 1602.5 Output Total 1275 / 1275 Balance 100 / 1100 -125 / 975 1602.5 / 1602.5 Weight last 48 hrs Weight 86.818 kg Weight 83.518 kg Weight 79.832 kg Weight 79.832 kg Physical Exam 2 Const: COMMON NORMALS: no acute distress ORIENTATION/CONSCIOUSNESS: Yes awake, Yes oriented to person and Yes oriented to place Resp: COMMON NORMALS: normal respiratory effort, No retractions, No use of accessory muscles and clear to auscultation bilaterally AUSCULTATION: clear to auscultation bilaterally Cardio: COMMON NORMALS: regular rate, regular rhythm, S1 normal heart sound present and S2 normal heart sound present RATE: regular rate RHYTHM: r egular rhythm HEART SOUNDS: S1 normal heart sound present and S2 normal heart sound present GI: COMMON NORMALS: Normal to inspection, nondistended, normoactive bowel sounds present, Soft to palpation and non-tender PALPATION: Yes Soft to palpation Extremity: COMMON NORMALS: no pedal edema Neuro: SENSORIUM/ORIENTATION: Yes oriented to person and Yes oriented to place Psych: COMMON NORMALS: mental status grossly normal Urinary Catheter Management: [place]: Cath Placed During This Visit: yes Reason for Continuing Indwelling Catheter: Perioperative Use in Selected Surgeries Urinary Catheter Date of Insertion: 10/20/24 Urinary Catheter Time of Insertion: 16:45 Data 10/22/24 04:47 10/22/24 04:47 A&P Assessment and plan (1) Obesity, morbid, BMI 40.0-49.9: (2) Essential (primary) hypertension: (3) Fall: (4) Closed fracture of right hip: Plan Fall ? Sounds like mechanical fall -CT head no acute findings -CT of the right femur CT/CT femur RT wo con* [id number] IMPRESSION: Right femoral subcapital fracture with cranial displacement and small right hip joint effusion. UTI, Rocephin Right hip fracture, status post surgical invention -Morphine for pain control -S CDs for DVT prophylaxis, Lovenox -Regular diet -PT OT after surgery Leukocytosis? -Elevated CRP -Complaints of cough -CT chest abdomen pelvis -Respiratory viral panel -Urine culture -Blood cultures -Continue Rocephin History of seizures -Continue carbamazepine, lacosamide, Topamax CODE STATUS DNR/DNI, SCDs for DVT prophylaxis Patient requires workup for persistent leukocytosis elevated CRP Attestations 2 Medical Necessity Statement*: Requires hospitalization for fall, UTI, leukocytosis hip fracture Diagnoses Obesity, morbid, BMI 40.0-49.9 E66.01 Essential (primary) hypertension I10 Fall W19.XXXA Closed fracture of right hip S72.001A
[2024-10-22 16:03] LABS: Adenovirus Not Detected (NOT DETECT); Chlamydia Pneumoniae Not Detected (NOT DETECT); Coronavirus 229E,HKU1,NL63,OC4 Not Detected (NOT DETECT); Human Metapneumovirus Not Detected (NOT DETECT); Human Rhinovirus/Enterovirus Detected (NOT DETECT); Influenza A Not Detected (NOT DETECT); Influenza A H1 Not Detected (NOT DETECT); Influenza A H1-2009 Not Detected (NOT DETECT); Influenza A H3 Not Detected (NOT DETECT); Influenza B Not Detected (NOT DETECT); Mycoplasma Pneumoniae Not Detected (NOT DETECT); Parainfluenza Virus Type 1 Not Detected (NOT DETECT); Parainfluenza Virus Type 2 Not Detected (NOT DETECT); Parainfluenza Virus Type 3 Not Detected (NOT DETECT); Parainfluenza Virus Type 4 Not Detected (NOT DETECT); Respiratory Syncytial Virus A Not Detected (NOT DETECT); Respiratory Syncytial Virus B Not Detected (NOT DETECT); SARS-COV-2 Not Detected (NOT DETECT)
--- NOTE | 2024-10-22 16:49 | P.PN_ITS ---
Subjective 2 Subjective: Patient seen and examined. Pain controlled. Internal medicine on board as primary. Will work with PT/OT. Vitals/I&O/Wt Last Vital Signs Temp 97.8 F 10/22/24 16:00 Pulse 90 10/22/24 16:00 Resp 15 10/22/24 16:00 BP 104/60 10/22/24 16:00 Pulse Ox 95 10/22/24 16:00 O2 Del Method Room Air 10/22/24 16:00 O2 Flow Rate 4 10/21/24 23:26 10/22/24 10/22/24 10/22/24 06:59 14:59 22:59 Intake Total 1150 / 2250 1602.5 / 1602.5 Output Total 1275 / 1275 Balance -125 / 975 1602.5 / 1602.5 Weight last 48 hrs Weight 191 lb 6.4 oz Weight 184 lb 2 oz Weight 176 lb Physical Exam 2 Narrative: Examination of the right lower extremity dressings are on in place there clean dry and intact mild spotting drainage over the anterior midline incision at the knee. Patient currently has an abduction pillow on and in place normal postoperative swelling and ecchymosis around the hip and knee incisions with normal diffuse tender to palpation. She is able to tolerate gentle logroll examination with minimal pain or discomfort. Compartments are soft compressible. Distal pulses are palpable she is able to wiggle toes as well as plantarflex and dorsiflex ankle. Urinary Catheter Management: [place]: Cath Placed During This Visit: yes Reason for Continuing Indwelling Catheter: Perioperative Use in Selected Surgeries Urinary Catheter Date of Insertion: 10/20/24 Urinary Catheter Time of Insertion: 16:45 Data 10/25/24 05:52 10/25/24 05:52 Other Labs: AM labs 10/22/2024 WBC 16.08 Hemoglobin 10.7 Micro: Microbiology 10/22/24 15:45 Blood Culture - Preliminary Blood SPECIMEN COLLECTED 10/22/24 15:40 Blood Culture - Preliminary Blood SPECIMEN COLLECTED Xray Ortho: Radiologist's impression: Ordering Provider/Ordering MD: Emmanuel Sidhu Date of Service: 10/21/24 Procedure(s): XR femur RT min 2V* [id number] Accession Number(s): [id number] Report Number: [id number] PROCEDURE INFORMATION: Exam: XR Right Femur Exam date and time: 10/21/2024 11:10 PM Age: 84 years old Clinical indication: Pain; Thigh; Right; Prior surgery; Surgery date: Post-operative (0-2 days); Surgery type: Post op RT femoral hardware removal with RT hemiarthroplasty TECHNIQUE: Imaging protocol: Radiologic exam of the right femur. Views: 2 views. COMPARISON: OT XR femur RT min 2V* [id number] 10/21/2024 7:32 PM FINDINGS: Tubes, catheters and devices: The hardware appears in proper position. Hardware appears intact. Bones/joints: Postoperative changes related to right total hip arthroplasty. Soft tissues: Postoperative changes of the overlying soft tissues. XR/XR femur RT min 2V* [id number] IMPRESSION: As above. Ordering Provider/Ordering MD: Emmanuel Sidhu Date of Service: 10/21/24 Procedure(s): XR pelvis 1-2V* [id number] Accession Number(s): [id number] Report Number: [id number] PROCEDURE INFORMATION: Exam: XR Pelvis Exam date and time: 10/21/2024 11:10 PM Age: 84 years old Clinical indication: Pelvic pain; Prior surgery; Surgery date: Post-operative (0-2 days); Surgery type: Post op RT femoral hardware removal with RT hemiarthroplasty TECHNIQUE: Imaging protocol: Radiologic exam of the pelvis. Views: 1 or 2 view. COMPARISON: CR XR hip RT 2-3V wo/w pel* [id number] 10/20/2024 3:32 PM FINDINGS: Bones/joints: Postoperative changes of right total hip arthroplasty. Diffusely decreased mineralization of the bony structures. Chronic fracture deformity of the right inferior pubic ramus. Soft tissues: Unremarkable. Intraperitoneal space: The pelvis appears intact. XR/XR pelvis 1-2V* [id number] IMPRESSION: As above. A&P Assessment and plan (1) Status post hemiarthroplasty of right hip: (2) Closed fracture of right hip: (3) Right knee DJD: Qualifiers: Osteoarthritis type: primary Qualified Code(s): M17.11 - Unilateral primary osteoarthritis, right knee (4) Status post open reduction and internal fixation (ORIF) of fracture: Plan Postop day 1 nonweightbearing right lower extremity Posterior hip precautions Hip abduction pillow PT/OT Pain control DVT prophylaxis Internal medicine on board as primary Complete postoperative antibiotics Orthopedics will continue to follow Change dressings as needed Attestations 2 Medical Necessity Statement*: Ongoing care status post right hip femoral neck fracture requiring orthopedic hardware removal and right hip hemiarthroplasty Coding Level of Care Code Acute Code for Chg Fwd Diagnoses Status post hemiarthroplasty of right hip Z96.641 Closed fracture of right hip S72.001A Primary osteoarthritis of right knee M17.11 Osteoarthritis type: primary Status post open reduction and internal fixation (ORIF) of fracture Z98.890; Z87.81 Time Spent (min) 10
[2024-10-22] MEDS: pantoprazole 40 mg SDV IVP (17:45)
[2024-10-22] MEDS: trazodone 50 mg Tablet PO (20:04)
[2024-10-23] VITALS (14 sets, daily range): BP systolic 99–144; BP diastolic 55–89; PULSE 78–102; RESP 16–24; TEMP 36.4–37.3; O2SAT 92–97
[2024-10-23] MEDS: morphine 4 mg/mL SDV 1 mL 2 MG IVP (02:14)
[2024-10-23 04:12] LABS: Basophils % 0.3 %; Eosinophils % 0.2 %; Hematocrit 30.2 % (36-47); Lymphocytes # 0.9 10^3/uL (0.8-4.8); Lymphocytes % 8.9 %; Mean Corpuscular HGB Conc 30.8 g/dL (30-55); Mean Corpuscular Hemoglobin 30.1 pg (27-33); Mean Corpuscular Volume 97.7 fl (85-98); Monocytes # 1.6 10^3/uL (0.2-0.9); Monocytes % 15.2 %; Neutrophils % 74.8 %; Nucleated Red Blood Cells % 0 %; Platelet Count 191 10^3/cmm (157-399); Red Blood Count 3.09 10^6/uL (3.85-5.65); Red Cell Distribution Width 14.6 % (12.1-15.1); White Blood Count 10.55 10^3/uL (3.29-11.43)
[2024-10-23 04:31] LABS: Alanine Aminotransferase 10 U/L (0-33); Albumin Level 2.3 g/dL (3.5-5.2); Alkaline Phosphatase 148 U/L (35-105); Aspartate Amino Transferase 15 U/L (0-32); Blood Urea Nitrogen 19 mg/dL (8-23); Calcium 7.6 mg/dL (8.5-10.5); Carbon Dioxide 17 mmol/L (22-29); Chloride 108 mmol/L (98-107); Creatinine Clr Calc Pharmacy 54.8235; Globulin 2.5 g/dL (1.3-4.6); Glucose 103 mg/dL (65-115); Osmolality Calculated 289 mOsm/kg (285-295); Sodium 138 mmol/L (136-145); Total Bilirubin 0.2 mg/dL (0.15-1.2); Total Protein 4.8 g/dL (6.6-8.7)
--- NOTE | 2024-10-23 06:15 | PC.NURSE ---
258-[address] Sidhu had orders for me to remove their donovan catheter at 2300. so far no output has been noticed and patient was bladder scanned and the scan showed 246. Do you want me to put in any prn straight cath orders? Sent 06:10 ? Read 06:13 No not yet. Let's bladder scan again at [address] if she doesnt void prior. Dr. Rakan Kim - Hospitalist ? 06:13
[2024-10-23] MEDS: HYDROcodone-acetaminophen 5-325 mg Tablet 1 TAB PO (08:31)
[2024-10-23] MEDS: docusate sodium 100 mg Capsule PO ×2 (08:31→17:55)
[2024-10-23] MEDS: atorvastatin 40 mg Tablet 20 MG PO (08:31)
[2024-10-23] MEDS: multivitamin therapeutic Tablet 1 TAB PO (08:31)
[2024-10-23] MEDS: iron polysaccharide complex 150 mg Capsule PO ×2 (08:32→17:55)
[2024-10-23] MEDS: metoprolol tartrate 50 mg Tablet PO ×2 (08:32→17:55)
[2024-10-23] MEDS: risperiDONE 0.25 mg Tablet PO ×2 (08:32→17:55)
[2024-10-23] MEDS: lacosamide 50 mg Tablet 200 MG PO ×2 (08:32→17:54)
[2024-10-23] MEDS: calcium carb-vit d 600mg/400unit 1 Tablet 1 EACH PO ×2 (08:32→17:55)
[2024-10-23] MEDS: topiramate 25 mg Tablet 50 MG PO ×2 (08:32→17:55)
[2024-10-23] MEDS: aspirin 81 mg Chew Tablet PO (08:32)
[2024-10-23] MEDS: carBAMazepine 200 mg Tablet PO ×2 (08:32→17:55)
[2024-10-23] MEDS: mupirocin oint 22 gm 1 APPLIC NASAL ×2 (08:33→17:58)
[2024-10-23] MEDS: chlorhexidine gluconate 0.12% Btl 473 mL 30 ML MUCOUS MEM ×4 (08:33→22:14)
[2024-10-23] MEDS: albuterol 2.5 mg/3 mL Neb INHALATION ×4 (08:46→21:55)
[2024-10-23] MEDS: cefTRIAXone 1,000 mg SDV 1000 MG IVP (10:09)
[2024-10-23] MEDS: enoxaparin 40 mg/0.4 mL Syringe SUBCUT (14:08)
--- NOTE | 2024-10-23 15:13 | P.PN_ITS ---
Subjective 2 Subjective: Patient was seen this morning, she is alert and oriented x 3, follows all commands, she is sitting up in a chair, reports hip pain Vitals/I&O/Wt Last Vital Signs Temp 97.7 F 10/23/24 12:00 Pulse 81 10/23/24 12:00 Resp 19 H 10/23/24 12:00 BP 99/57 10/23/24 12:00 Pulse Ox 94 10/23/24 12:00 O2 Del Method Room Air 10/23/24 12:00 O2 Flow Rate 4 10/21/24 23:26 10/23/24 10/23/24 10/23/24 06:59 14:59 22:59 Intake Total 240 / 240 Output Total 175 / 175 Balance 65 / 65 Weight last 48 hrs Weight 90.804 kg Weight 86.818 kg Physical Exam 2 Const: COMMON NORMALS: no acute distress and patient oriented x3 Resp: COMMON NORMALS: normal respiratory effort, No retractions, No use of accessory muscles and clear to auscultation bilaterally AUSCULTATION: clear to auscultation bilaterally Cardio: COMMON NORMALS: regular rate, regular rhythm, S1 normal heart sound present and S2 normal heart sound present RATE: regular rate RHYTHM: r egular rhythm HEART SOUNDS: S1 normal heart sound present and S2 normal heart sound present GI: COMMON NORMALS: Normal to inspection, nondistended, normoactive bowel sounds present and non-tender Extremity: COMMON NORMALS: no pedal edema Neuro: COMMON NORMALS: patient oriented x3 Psych: COMMON NORMALS: mental status grossly normal Urinary Catheter Management: [place]: Cath Placed During This Visit: yes, but has since been removed by the nurse Reason for Continuing Indwelling Catheter: Perioperative Use in Selected Surgeries Urinary Catheter Date of Insertion: 10/20/24 Urinary Catheter Time of Insertion: 16:45 Date Urinary Catheter Removed: 10/22/24 Time Urinary Catheter Discontinued: 23:08 Data 10/23/24 04:04 10/23/24 04:04 Micro: Microbiology 10/22/24 17:55 Sputum Culture - Preliminary Sputum - Expectorated Sputum 10/22/24 16:30 Urine Culture - Preliminary Urine,Clean Catch Gram Negative Rods 10/22/24 15:45 Blood Culture - Preliminary Blood SPECIMEN COLLECTED 10/22/24 15:40 Blood Culture - Preliminary Blood SPECIMEN COLLECTED A&P Assessment and plan (1) Obesity, morbid, BMI 40.0-49.9: (2) Essential (primary) hypertension: (3) Fall: (4) Closed fracture of right hip: Plan Fall ? Sounds like mechanical fall -CT head no acute findings -CT of the right femur CT/CT femur RT wo con* [id number] IMPRESSION: Right femoral subcapital fracture with cranial displacement and small right hip joint effusion. UTI, Rocephin Right hip fracture, status post surgical invention -Morphine for pain control -S CDs for DVT prophylaxis, Lovenox -Regular diet -PT OT after surgery Leukocytosis? Resolved -Elevated CRP -Complaints of cough, positive for rhinovirus -CT chest abdomen pelvis -Urine culture -Blood cultures -Continue Rocephin History of seizures -Continue carbamazepine, lacosamide, Topamax CODE STATUS DNR/DNI, SCDs for DVT prophylaxis Continue IV Rocephin, continue PT OT Attestations 2 Medical Necessity Statement*: Patient requires hospitalization for fall, UTI, leukocytosis Diagnoses Obesity, morbid, BMI 40.0-49.9 E66.01 Essential (primary) hypertension I10 Fall W19.XXXA Closed fracture of right hip S72.001A
--- NOTE | 2024-10-23 17:12 | P.PN_ITS ---
Subjective 2 Subjective: Patient seen and examined. Pain controlled with medications. No issues overnight Vitals/I&O/Wt Last Vital Signs Temp 97.7 F 10/23/24 16:00 Pulse 85 10/23/24 16:00 Resp 16 10/23/24 16:00 BP 104/62 10/23/24 16:00 Pulse Ox 97 10/23/24 16:00 O2 Del Method Room Air 10/23/24 16:00 O2 Flow Rate 4 10/21/24 23:26 10/23/24 10/23/24 10/23/24 06:59 14:59 22:59 Intake Total 240 / 240 Output Total 175 / 175 Balance 65 / 65 Weight last 48 hrs Weight 200 lb 3 oz Weight 191 lb 6.4 oz Physical Exam 2 Narrative: Examination of the right lower extremity dressings are on in place there clean dry and intact mild spotting drainage over the anterior midline incision at the knee. Patient currently has an abduction pillow on and in place normal postoperative swelling and ecchymosis around the hip and knee incisions with normal diffuse tender to palpation. She is able to tolerate gentle logroll examination with minimal pain or discomfort. Compartments are soft compressible. Distal pulses are palpable she is able to wiggle toes as well as plantarflex and dorsiflex ankle. Urinary Catheter Management: [place]: Cath Placed During This Visit: yes, but has since been removed by the nurse Reason for Continuing Indwelling Catheter: Perioperative Use in Selected Surgeries Urinary Catheter Date of Insertion: 10/20/24 Urinary Catheter Time of Insertion: 16:45 Date Urinary Catheter Removed: 10/22/24 Time Urinary Catheter Discontinued: 23:08 Data 10/25/24 05:52 10/25/24 05:52 Other Labs: 10/23/2020 3 AM labs: WBC 10.55, hemoglobin 9.3 Micro: Microbiology 10/22/24 15:45 Blood Culture - Preliminary Blood NEGATIVE TO DATE 10/22/24 15:40 Blood Culture - Preliminary Blood NEGATIVE TO DATE 10/22/24 17:55 Sputum Culture - Preliminary Sputum - Expectorated Sputum 10/22/24 16:30 Urine Culture - Preliminary Urine,Clean Catch Gram Negative Rods A&P Assessment and plan (1) Status post hemiarthroplasty of right hip: (2) Closed fracture of right hip: (3) Right knee DJD: Qualifiers: Osteoarthritis type: primary Qualified Code(s): M17.11 - Unilateral primary osteoarthritis, right knee (4) Status post open reduction and internal fixation (ORIF) of fracture: Plan Postop day 2 nonweightbearing right lower extremity Posterior hip precautions Hip abduction pillow PT/OT Pain control DVT prophylaxis Internal medicine on board as primary Complete postoperative antibiotics Orthopedics will continue to follow Change dressings as needed Attestations 2 Medical Necessity Statement*: Ongoing care status post right hip femoral neck fracture requiring orthopedic hardware removal and right hip hemiarthroplasty Coding Level of Care Code Acute Code for Chg Fwd Diagnoses Status post hemiarthroplasty of right hip Z96.641 Closed fracture of right hip S72.001A Primary osteoarthritis of right knee M17.11 Osteoarthritis type: primary Status post open reduction and internal fixation (ORIF) of fracture Z98.890; Z87.81 Time Spent (min) 10
[2024-10-23] MEDS: pantoprazole 40 mg SDV IVP (17:54)
[2024-10-23] MEDS: trazodone 50 mg Tablet PO (22:14)
--- NOTE | 2024-10-23 23:22 | PC.NURSE ---
Isabela TEJADA taking care of patient until approximately 22:30 at which point this nurse assumed care.
[2024-10-23] MEDS: acetaminophen 325 mg Tablet 650 MG PO (23:55)
[2024-10-24] VITALS (14 sets, daily range): BP systolic 110–136; BP diastolic 61–84; PULSE 69–85; RESP 15–22; TEMP 36.4–37.9; O2SAT 93–98
[2024-10-24 04:59] LABS: Basophils % 0.3 %; Eosinophils # 0.1 10^3/uL (0.0-0.8); Hematocrit 27.7 % (36-47); Lymphocytes # 1.6 10^3/uL (0.8-4.8); Lymphocytes % 15.4 %; Mean Corpuscular Hemoglobin 29.9 pg (27-33); Mean Corpuscular Volume 96.2 fl (85-98); Mean Platelet Volume 9.5 fL (7.4-10.4); Monocytes # 1.5 10^3/uL (0.2-0.9); Monocytes % 14.5 %; Neutrophils # 6.83 10^3/uL (1.8-7.7); Nucleated Red Blood Cells % 0 %; Platelet Count 222 10^3/cmm (157-399); Red Blood Count 2.88 10^6/uL (3.85-5.65); Red Cell Distribution Width 14.6 % (12.1-15.1); White Blood Count 10.05 10^3/uL (3.29-11.43)
[2024-10-24 05:12] LABS: Anion Gap 11.7 (5-19); Blood Urea Nitrogen 17 mg/dL (8-23); Calcium 7.9 mg/dL (8.5-10.5); Carbon Dioxide 21 mmol/L (22-29); Chloride 107 mmol/L (98-107); Creatinine Clr Calc Pharmacy 56.2075; Glucose 118 mg/dL (65-115); Osmolality Calculated 285 mOsm/kg (285-295); Potassium 3.7 mmol/L (3.5-5.1); Sodium 136 mmol/L (136-145)
[2024-10-24] MEDS: albuterol 2.5 mg/3 mL Neb INHALATION ×4 (07:51→20:31)
[2024-10-24] MEDS: topiramate 25 mg Tablet 50 MG PO ×2 (09:04→18:24)
[2024-10-24] MEDS: atorvastatin 40 mg Tablet 20 MG PO (09:04)
[2024-10-24] MEDS: aspirin 81 mg Chew Tablet PO (09:04)
[2024-10-24] MEDS: multivitamin therapeutic Tablet 1 TAB PO (09:05)
[2024-10-24] MEDS: carBAMazepine 200 mg Tablet PO ×2 (09:05→18:24)
[2024-10-24] MEDS: calcium carb-vit d 600mg/400unit 1 Tablet 1 EACH PO ×2 (09:05→18:25)
[2024-10-24] MEDS: risperiDONE 0.25 mg Tablet PO ×2 (09:05→18:24)
[2024-10-24] MEDS: metoprolol tartrate 50 mg Tablet PO ×2 (09:06→18:24)
[2024-10-24] MEDS: chlorhexidine gluconate 0.12% Btl 473 mL 30 ML MUCOUS MEM ×4 (09:06→19:59)
[2024-10-24] MEDS: docusate sodium 100 mg Capsule PO ×2 (09:06→18:24)
[2024-10-24] MEDS: mupirocin oint 22 gm 1 APPLIC NASAL ×2 (09:06→18:25)
[2024-10-24] MEDS: iron polysaccharide complex 150 mg Capsule PO ×2 (09:06→18:24)
[2024-10-24] MEDS: lacosamide 50 mg Tablet 200 MG PO ×2 (09:09→18:24)
[2024-10-24] MEDS: cefTRIAXone 1,000 mg SDV 1000 MG IVP (09:39)
--- NOTE | 2024-10-24 10:48 | CT_ITS ---
WS: [id number] CT HEAD NONCONTRAST HISTORY: ams TECHNIQUE: Contiguous axial imaging performed through the brain. Bone and soft tissue windows. Sagitt al and coronal reformats reviewed. All CT scans at [facility] use at least one of these dose optimization techniques: automated exposure control; mA and/or kV adjustment per patient size (includ es targeted exams where dose is matched to clinical indication); or iterative reconstruction. DLP: 1069.88 mGy.cm COMPARISON: 10/20/2024 No acute intracranial hemorrhage, midline shift or mass effect. Marked bilateral atrophy and moderate confluent small vessel ischemic type changes throughout the whi te matter. Perivascular space inferior LEFT basal ganglia. Marked cerebellar atrophy. Small basal alan glia lacunar infarcts reidentified. Ventricles: Ventricles are prominent on the basis of atrophy. Paranasal sinuses: As visualized are clear. Mastoid air cells: Well pneumatized. Calvarium and scalp: Skull is intact with no soft tissue edema or swelling. CT/CT head wo con* [id number] IMPRESSION: 1. No acute intracranial hemorrhage or edema. 2. Marked cerebral atrophy with volume loss. Moderate small vessel ischemic ty pe changes with small lacunar infarcts. No interval change.
[2024-10-24] MEDS: AZITHROMYCIN ADD-Vantage 500 MG in 0.9% NaCl ADD-Vantage 250 ML 250 MG IV (11:44)
[2024-10-24 11:45] LABS: Ferritin 118 ng/mL (15-150); Iron 14 ug/dL (37-145); Percent Saturation 9.7 % (20-50); Total Iron Binding Capacity 143 mcg/dl; Unsaturated Iron Binding 129 ug/dL (112-347)
[2024-10-24 13:32] LABS: Basophils # 0.1 10^3/uL (0.0-0.1); Basophils % 0.4 %; Eosinophils # 0.2 10^3/uL (0.0-0.8); Eosinophils % 1.7 %; Hematocrit 32.4 % (36-47); Lymphocytes # 1.4 10^3/uL (0.8-4.8); Lymphocytes % 11.5 %; Mean Corpuscular HGB Conc 31.2 g/dL (30-55); Mean Corpuscular Hemoglobin 29.5 pg (27-33); Mean Corpuscular Volume 94.7 fl (85-98); Mean Platelet Volume 9.5 fL (7.4-10.4); Monocytes # 1.5 10^3/uL (0.2-0.9); Monocytes % 12.5 %; Neutrophils # 8.83 10^3/uL (1.8-7.7); Neutrophils % 72.8 %; Nucleated Red Blood Cells % 0 %; Platelet Count 299 10^3/cmm (157-399); Red Blood Count 3.42 10^6/uL (3.85-5.65); Red Cell Distribution Width 14.7 % (12.1-15.1); White Blood Count 12.14 10^3/uL (3.29-11.43)
[2024-10-24 13:52] LABS: Alanine Aminotransferase 14 U/L (0-33); Albumin Level 2.6 g/dL (3.5-5.2); Alkaline Phosphatase 167 U/L (35-105); Anion Gap 16.1 (5-19); Aspartate Amino Transferase 33 U/L (0-32); Blood Urea Nitrogen 17 mg/dL (8-23); Calcium 8.4 mg/dL (8.5-10.5); Carbon Dioxide 19 mmol/L (22-29); Chloride 106 mmol/L (98-107); Creatinine Clr Calc Pharmacy 56.2075; Globulin 3.2 g/dL (1.3-4.6); Glucose 119 mg/dL (65-115); Osmolality Calculated 287 mOsm/kg (285-295); Potassium 4.1 mmol/L (3.5-5.1); Sodium 137 mmol/L (136-145); Total Bilirubin 0.2 mg/dL (0.15-1.2); Total Protein 5.8 g/dL (6.6-8.7)
[2024-10-24 14:38] LABS: Carbamazepine Tegretol 7.9 ug/mL (4.0-12.0)
--- NOTE | 2024-10-24 15:23 | PC.SOCIAL ---
IMM Update pg 2 of IMM updated and reviewed w/ patient. Copy provided and copy dated, initialed and placed in chart.
[2024-10-24] MEDS: enoxaparin 40 mg/0.4 mL Syringe SUBCUT (15:47)
--- NOTE | 2024-10-24 17:23 | P.PN_ITS ---
Subjective 2 Subjective: Patient was seen this morning, she is alert to person, not to place, not to time, she recognized me, but is a bit confused this morning, she voiced to nursing staff that she is ready to , during my conversations with her, she would space out, but after a bit, she was able to answer my questions, she has received her seizure medications this morning, Vitals/I&O/Wt Last Vital Signs Temp 97.5 F L 10/24/24 15:33 Pulse 69 10/24/24 16:00 Resp 18 10/24/24 16:00 BP 110/67 10/24/24 15:33 Pulse Ox 96 10/24/24 16:00 O2 Del Method Room Air 10/24/24 15:33 O2 Flow Rate 4 10/21/24 23:26 10/24/24 10/24/24 10/24/24 06:59 14:59 22:59 Intake Total 354 / 354 Balance 354 / 354 Weight last 48 hrs Weight 91.081 kg Weight 90.804 kg Physical Exam 2 Const: COMMON NORMALS: no acute distress EXAM LIMITATIONS: altered mental status ORIENTATION/CONSCIOUSNESS: Yes awake and Yes oriented to person; not oriented to place and not oriented to time Resp: COMMON NORMALS: normal respiratory effort, No retractions, No use of accessory muscles and clear to auscultation bilaterally AUSCULTATION: clear to auscultation bilaterally Cardio: COMMON NORMALS: regular rate, regular rhythm, S1 normal heart sound present and S2 normal heart sound present RATE: regular rate RHYTHM: r egular rhythm HEART SOUNDS: S1 normal heart sound present and S2 normal heart sound present GI: COMMON NORMALS: Normal to inspection, nondistended, normoactive bowel sounds present and non-tender Extremity: COMMON NORMALS: no pedal edema Neuro: SENSORIUM/ORIENTATION: Yes oriented to person, No oriented to place and No oriented to time Urinary Catheter Management: [place]: Cath Placed During This Visit: yes, but has since been removed by the nurse Reason for Continuing Indwelling Catheter: Perioperative Use in Selected Surgeries Urinary Catheter Date of Insertion: 10/20/24 Urinary Catheter Time of Insertion: 16:45 Date Urinary Catheter Removed: 10/22/24 Time Urinary Catheter Discontinued: 23:08 Data 10/24/24 13:06 10/24/24 13:06 Micro: Microbiology 10/22/24 16:30 Urine Culture - Final Urine,Clean Catch Proteus mirabilis esbl 10/22/24 17:55 Sputum Culture - Final Sputum - Expectorated Sputum 10/22/24 15:45 Blood Culture - Preliminary Blood NEGATIVE TO DATE 10/22/24 15:40 Blood Culture - Preliminary Blood NEGATIVE TO DATE A&P Assessment and plan (1) Obesity, morbid, BMI 40.0-49.9: (2) Essential (primary) hypertension: (3) Fall: (4) Closed fracture of right hip: Plan Fall ? Sounds like mechanical fall -CT head no acute findings -CT of the right femur CT/CT femur RT wo con* [id number] IMPRESSION: Right femoral subcapital fracture with cranial displacement and small right hip joint effusion. UTI, Rocephin Right hip fracture, status post surgical invention -Morphine for pain control -S CDs for DVT prophylaxis, Lovenox -Regular diet -PT OT after surgery Altered mental status, with worsening leukocytosis 12.14, with low-grade fever 100.4 last night -Elevated CRP -Complaints of cough, positive for rhinovirus -CT chest abdomen pelvis no acute findings -Urine culture -Blood cultures -Continue Rocephin, added azithromycin History of seizures -Continue carbamazepine, lacosamide, Topamax CODE STATUS DNR/DNI, SCDs for DVT prophylaxis Continue IV Rocephin, added azithromycin repeat CT head continue PT OT Attestations 2 Medical Necessity Statement*: Patient requires hospitalization for fall, UTI, right hip fracture, altered mental status Diagnoses Obesity, morbid, BMI 40.0-49.9 E66.01 Essential (primary) hypertension I10 Fall W19.XXXA Closed fracture of right hip S72.001A
--- NOTE | 2024-10-24 17:43 | P.PN_ITS ---
Subjective 2 Subjective: Patient seen and examined patient eating dinner. Patient's pain controlled. Currently working on discharge placement. Did have a increase in leukocytosis and a low-grade fever being monitored by internal medicine has had complaints of cough and was positive for rhinovirus per the primary team. At this point time no changes clinical examination to the right lower extremity. Vitals/I&O/Wt Last Vital Signs Temp 97.5 F L 10/24/24 15:33 Pulse 69 10/24/24 16:00 Resp 18 10/24/24 16:00 BP 110/67 10/24/24 15:33 Pulse Ox 96 10/24/24 16:00 O2 Del Method Room Air 10/24/24 15:33 O2 Flow Rate 4 10/21/24 23:26 10/24/24 10/24/24 10/24/24 06:59 14:59 22:59 Intake Total 354 / 354 Balance 354 / 354 Weight last 48 hrs Weight 200 lb 12.8 oz Weight 200 lb 3 oz Physical Exam 2 Narrative: Examination of the right lower extremity dressings are on in place there clean dry and intact mild spotting drainage over the anterior midline incision at the knee. Patient currently has an abduction pillow on and in place normal postoperative swelling and ecchymosis around the hip and knee incisions with normal diffuse tender to palpation. She is able to tolerate gentle logroll examination with minimal pain or discomfort. Compartments are soft compressible. Distal pulses are palpable she is able to wiggle toes as well as plantarflex and dorsiflex ankle. Urinary Catheter Management: [place]: Cath Placed During This Visit: yes, but has since been removed by the nurse Reason for Continuing Indwelling Catheter: Perioperative Use in Selected Surgeries Urinary Catheter Date of Insertion: 10/20/24 Urinary Catheter Time of Insertion: 16:45 Date Urinary Catheter Removed: 10/22/24 Time Urinary Catheter Discontinued: 23:08 Data 10/25/24 05:52 10/25/24 05:52 Micro: Microbiology 10/22/24 16:30 Urine Culture - Final Urine,Clean Catch Proteus mirabilis esbl 10/22/24 17:55 Sputum Culture - Final Sputum - Expectorated Sputum 10/22/24 15:45 Blood Culture - Preliminary Blood NEGATIVE TO DATE 10/22/24 15:40 Blood Culture - Preliminary Blood NEGATIVE TO DATE A&P Assessment and plan (1) Status post hemiarthroplasty of right hip: (2) Closed fracture of right hip: (3) Right knee DJD: Qualifiers: Osteoarthritis type: primary Qualified Code(s): M17.11 - Unilateral primary osteoarthritis, right knee (4) Status post open reduction and internal fixation (ORIF) of fracture: Plan Postop day 3 nonweightbearing right lower extremity Posterior hip precautions Hip abduction pillow PT/OT Pain control DVT prophylaxis Internal medicine on board as primary Change dressings as needed Patient at this point in time no further orthopedic surgical intervention required at this time can change dressings as needed. Will follow-up with the orthopedic team in 2 weeks. At this point time orthopedic surgery team will sign off patient follow peripherally if there is any questions pertaining patient care for free to contact orthopedics on-call. Given unfortunately her her poor bone quality removal of a large intramedullary italo I worry about her weightbearing right away as well as her bad arthritis and valgus knee deformity I feel she would be a high susceptibility to falls as well as further fractures to the right femur. At this point time I talked about this with her in detail she understands we will follow-up with her in 2 weeks postop we will continue with posterior hip precautions and nonweightbearing to the right lower extremity patient understands and agrees with current plan. All questions answered. Recommend pain control DVT prophylaxis at discharge. Attestations 2 Medical Necessity Statement*: Ongoing care status post right hip femoral neck fracture requiring orthopedic hardware removal and right hip hemiarthroplasty Coding Level of Care Code Acute Code for Chg Fwd Diagnoses Status post hemiarthroplasty of right hip Z96.641 Closed fracture of right hip S72.001A Primary osteoarthritis of right knee M17.11 Osteoarthritis type: primary Status post open reduction and internal fixation (ORIF) of fracture Z98.890; Z87.81 Time Spent (min) 10
[2024-10-24] MEDS: pantoprazole 40 mg SDV IVP (18:23)
--- NOTE | 2024-10-24 19:18 | PC.NURSE ---
Addendum entered by Ambar Faith RN 10/24/24 19:30: Pt stared blankly straight ahead while Dr Nguyen speaking to her this m. This was shortly after she stated she wanted to she was of no use she could not work. Then she started speaking about the schools these days are no good and if you can't go to school what's the use. She had Head CT done today Original Note: Shift summary: Pt alert and oriented to self, place, month and year. Some times she is smiling when you are speaking to he. Other times during medication admin or other care she says ' why bother. I am just going to anyway.' CVL removed today, Peripheral IV obtained with difficulty and US guided. She sat up in a chair this afternoon. It took 2-3 assist to help her to BSC. Bm noted today. She has picked at her meals. RIght hip dressing intact, KISHA intact. 2 of 3 knee dressings intact. the other hanged. Azithromycin was started to day. Labs drawn this afternoon.
[2024-10-24] MEDS: trazodone 50 mg Tablet PO (19:59)
[2024-10-25] VITALS (11 sets, daily range): BP systolic 119–141; BP diastolic 54–81; PULSE 85–96; RESP 16–18; TEMP 36.5–36.9; O2SAT 95–98
[2024-10-25 06:05] LABS: Basophils % 0.3 %; Eosinophils # 0.3 10^3/uL (0.0-0.8); Eosinophils % 3.7 %; Hematocrit 31.7 % (36-47); Lymphocytes # 1.3 10^3/uL (0.8-4.8); Lymphocytes % 14.5 %; Mean Corpuscular HGB Conc 31.5 g/dL (30-55); Mean Corpuscular Hemoglobin 29.5 pg (27-33); Mean Corpuscular Volume 93.5 fl (85-98); Mean Platelet Volume 9.5 fL (7.4-10.4); Monocytes # 1.2 10^3/uL (0.2-0.9); Monocytes % 13.5 %; Neutrophils # 5.96 10^3/uL (1.8-7.7); Neutrophils % 66.8 %; Nucleated Red Blood Cells % 0 %; Platelet Count 276 10^3/cmm (157-399); Red Blood Count 3.39 10^6/uL (3.85-5.65); Red Cell Distribution Width 14.6 % (12.1-15.1); White Blood Count 8.92 10^3/uL (3.29-11.43)
[2024-10-25 06:26] LABS: Procalcitonin 0.21 ng/mL (0-0.5)
[2024-10-25 06:28] LABS: Alanine Aminotransferase 21 U/L (0-33); Albumin Level 2.5 g/dL (3.5-5.2); Alkaline Phosphatase 171 U/L (35-105); Anion Gap 15.6 (5-19); Aspartate Amino Transferase 39 U/L (0-32); Blood Urea Nitrogen 14 mg/dL (8-23); C Reactive Protein 292.9 mg/L (0.0-4.9); Calcium 8.5 mg/dL (8.5-10.5); Carbon Dioxide 20 mmol/L (22-29); Chloride 107 mmol/L (98-107); Creatinine Clr Calc Pharmacy 56.3844; Globulin 3.2 g/dL (1.3-4.6); Glucose 128 mg/dL (65-115); Osmolality Calculated 288 mOsm/kg (285-295); Phosphorus 2.9 mg/dL (2.5-4.5); Potassium 4.6 mmol/L (3.5-5.1); Sodium 138 mmol/L (136-145); Total Bilirubin 0.2 mg/dL (0.15-1.2); Total Protein 5.7 g/dL (6.6-8.7)
--- NOTE | 2024-10-25 08:43 | USR_ITS ---
PROCEDURE INFORMATION: Exam: US Retroperitoneal, Complete, Kidneys and Bladder Exam date and time: 10/25/2024 10:15 AM Age: 84 years old Clinical indication: Other: UTI; Additional info: Proteus UTI, kidney stone? TECHNIQUE: Imaging protocol: Real-time ultrasound of the retroperitoneum with image documentation. Complete exam focused on the bilateral kidneys and urinary bladder. COMPARISON: [place] [id number] 10/22/2024 2:52 PM FINDINGS: Right kidney: Normal. No stones. No hydronephrosis. 9.9 cm x 4 cm x 4.6 cm Left kidney: Normal. No stones. No hydronephrosis. 9.3 cm x 4.3 cm x 4 cm Urinary bladder: Unremarkable. US/US renal BI* [id number] IMPRESSION: 1. Negative bilateral renal ultrasound examination. 2. Normal urinary bladder
[2024-10-25] MEDS: albuterol 2.5 mg/3 mL Neb INHALATION ×2 (09:30→11:34)
[2024-10-25] MEDS: multivitamin therapeutic Tablet 1 TAB PO (10:50)
[2024-10-25] MEDS: aspirin 81 mg Chew Tablet PO (10:50)
[2024-10-25] MEDS: iron polysaccharide complex 150 mg Capsule PO ×2 (10:50→17:46)
[2024-10-25] MEDS: atorvastatin 40 mg Tablet 20 MG PO (10:51)
[2024-10-25] MEDS: topiramate 25 mg Tablet 50 MG PO ×2 (10:51→17:46)
[2024-10-25] MEDS: calcium carb-vit d 600mg/400unit 1 Tablet 1 EACH PO ×2 (10:51→17:46)
[2024-10-25] MEDS: docusate sodium 100 mg Capsule PO ×2 (10:51→17:46)
[2024-10-25] MEDS: metoprolol tartrate 50 mg Tablet PO ×2 (10:52→17:46)
[2024-10-25] MEDS: risperiDONE 0.25 mg Tablet PO ×2 (10:52→17:54)
[2024-10-25] MEDS: chlorhexidine gluconate 0.12% Btl 473 mL 30 ML MUCOUS MEM ×3 (10:52→17:46)
[2024-10-25] MEDS: carBAMazepine 200 mg Tablet PO ×2 (10:52→17:54)
[2024-10-25] MEDS: ertapenem 1,000 mg SDV 1000 MG IVP (10:58)
[2024-10-25] MEDS: lacosamide 50 mg Tablet 200 MG PO ×2 (10:58→17:46)
--- NOTE | 2024-10-25 11:36 | P.DS_ITS ---
Discharge Providers Date of Admission: 10/20/24 17:00 Date of Discharge: October 25, 2024 Attending Provider at Admission: Ron Nguyen MD Attending Provider at Discharge: Ron Nguyen MD Primary Care Provider: Chavez Araujo MD Diagnoses at Discharge Discharge Diagnosis (1) Status post hemiarthroplasty of right hip: Status: Acute (2) Closed fracture of right hip: Status: Acute (3) Right knee DJD: Status: Acute Qualifiers: Osteoarthritis type: primary Qualified Code(s): M17.11 - Unilateral primary osteoarthritis, right knee (4) Status post open reduction and internal fixation (ORIF) of fracture: Status: Acute Reason for Visit Reason for Visit: FALL Hospital Course Hospital Course Tennille James is a 84 year old female with a past medical history of COPD, GERD, hypertension, epilepsy, who presents to [facility] for a fall. Patient lives at an assisted living facility she tells me, she typically ambulates with a walker, she tells me that today she was getting up to use the bathroom, when her knees went out and she fell to the ground, she denies losing consciousness, denies hitting her head, denies any preceding chest pain or palpitations or lightheadedness or any seizure-like symptoms, in the emergency room she was found to have a right hip fracture Patient was admitted to [facility] for fall, with right hip fracture, status post surgical intervention by Dr. Sidhu, discharged to [facility] facility, discharged on Lovenox for DVT prophylaxis for 35 days, discharged with posterior hip precautions, and nonweightbearing to the right lower extremity Patient's hospitalization was complicated by altered mental status, leukocytosis, low-grade fever, elevated CRP likely secondary to Proteus ESBL UTI. Patient received 1 dose of IV Invanz as inpatient, discharged on 6 more days of Invanz, midline to be placed, and removed after completion of antibiotic therapy. On discharge patient is alert to person, to place, not to time she follows all commands, no pain complaints, remains afebrile, blood cultures so far no growth Physical Exam Const: COMMON NORMALS: no acute distress ORIENTATION/CONSCIOUSNESS: Yes awake, Yes oriented to person and Yes oriented to place Resp: COMMON NORMALS: normal respiratory effort, No retractions, No use of accessory muscles and clear to auscultation bilaterally AUSCULTATION: clear to auscultation bilaterally Cardio: COMMON NORMALS: regular rate, regular rhythm, S1 normal heart sound present and S2 normal heart sound present RATE: regular rate RHYTHM: regular rhythm HEART SOUNDS: S1 normal heart sound present and S2 normal heart sound present GI: COMMON NORMALS: Normal to inspection, nondistended, normoactive bowel sounds present and non-tender Extremity: COMMON NORMALS: no pedal edema Neuro: SENSORIUM/ORIENTATION: Yes oriented to person and Yes oriented to place Psych: COMMON NORMALS: mental status grossly normal Urinary Catheter Management: [place]: Cath Placed During This Visit: yes, but has since been removed by the nurse Reason for Continuing Indwelling Catheter: Perioperative Use in Selected Surgeries Urinary Catheter Date of Insertion: 10/20/24 Urinary Catheter Time of Insertion: 16:45 Date Urinary Catheter Removed: 10/22/24 Time Urinary Catheter Discontinued: 23:08 Discharge Data Studies Completed and Pending Completed Studies During Hospitalization Category Date Time Status CT chest abdomen pelvis [[place] [id number] Cat Scan 10/22/24 14:27 Completed ] Routine CT femur RT wo con* [id number] Routine Cat Scan 10/20/24 17:[address] head wo con* [id number] Routine Cat Scan 10/20/24 18:[address] head wo con* [id number] Routine Cat Scan 10/24/24 10:48 Completed CXRP [XR chest 1V portable [id number]] Routine Exams 10/21/24 18:23 Completed CXRP [XR chest 1V portable [id number]] Stat Exams 10/20/24 15:25 Completed XR chest 1V portable [id number] Routine Exams 10/22/24 08:58 Completed XR femur RT min 2V* [id number] Routine Exams 10/20/24 17:17 Completed XR femur RT min 2V* [id number] Routine Exams 10/21/24 17:00 Completed XR femur RT min 2V* [id number] Routine Exams 10/21/24 23:01 Completed XR hip RT 2-3V wo/w pel* [id number] Stat Exams 10/20/24 15:22 Completed XR pelvis 1-2V* [id number] Routine Exams 10/21/24 23:01 Completed US renal BI* [id number] Stat Ultrasound 10/25/24 08:43 Completed Pending at discharge Category Date Time Status Blood Culture Stat Lab 10/22/24 15:45 Results C Reactive Protein AM LABS Lab 10/26/24 04:00 Ordered C Reactive Protein AM LABS Lab 10/27/24 04:00 Ordered Complete Blood Count w/Auto AM LABS Lab 10/26/24 04:00 Ordered Complete Blood Count w/Auto AM LABS Lab 10/27/24 04:00 Ordered Comprehensive Metabolic Panel AM LABS Lab 10/26/24 04:00 Ordered Comprehensive Metabolic Panel AM LABS Lab 10/27/24 04:00 Ordered Magnesium AM LABS Lab 10/26/24 04:00 Ordered Magnesium AM LABS Lab 10/27/24 04:00 Ordered Phosphorus AM LABS Lab 10/26/24 04:00 Ordered Phosphorus AM LABS Lab 10/27/24 04:00 Ordered Procalcitonin AM LABS Lab 10/26/24 04:00 Ordered Procalcitonin AM LABS Lab 10/27/24 04:00 Ordered Urine Culture Stat Lab 10/22/24 16:30 Received Radiology Impressions Hip/Pelvis X-Ray 10/20/24 15:22 IMPRESSION: 1. Displaced subcapital fracture of the RIGHT hip. Femur CT 10/20/24 17:17 IMPRESSION: Right femoral subcapital fracture with cranial displacement and small right hip joint effusion. Femur X-Ray 10/21/24 23:01 IMPRESSION: As above. Pelvis X-Ray 10/21/24 23:01 IMPRESSION: As above. Chest X-Ray 10/22/24 08:58 IMPRESSION: No acute cardiopulmonary process. Chest/Abdomen/Pelvis CT 10/22/24 14:27 IMPRESSION: No acute cardiopulmonary process. IMPRESSION: 1. Post right total hip arthroplasty with expected postop soft tissue emphysema. No large collections. 2. No acute intra-abdominal process. Head CT 10/24/24 10:48 IMPRESSION: 1. No acute intracranial hemorrhage or edema. 2. Marked cerebral atrophy with volume loss. Moderate small vessel ischemic type changes with small lacunar infarcts. No interval change. Renal Ultrasound 10/25/24 08:43 IMPRESSION: 1. Negative bilateral renal ultrasound examination. 2. Normal urinary bladder Laboratory Results WBC 8.92 10^3/uL (3.29-11.43) 10/25/24 05:52 Corrected WBC Cancelled 10/20/24 15:54 RBC 3.39 10^6/uL (3.85-5.65) L 10/25/24 05:52 Hgb 10.00 g/dL (11.27-16.99) L 10/25/24 05:52 Hct 31.7 % (36-47) L 10/25/24 05:52 MCV 93.5 fl (85-98) 10/25/24 05:52 MCH 29.5 pg (27-33) 10/25/24 05:52 MCHC 31.5 g/dL (30-55) 10/25/24 05:52 RDW 14.6 % (12.1-15.1) 10/25/24 05:52 Plt Count 276 10^3/cmm (157-399) 10/25/24 05:52 MPV 9.5 fL (7.4-10.4) 10/25/24 05:52 Gran % Cancelled 10/20/24 15:54 Neut % (Auto) 66.8 % 10/25/24 05:52 Lymph % (Auto) 14.5 % 10/25/24 05:52 [place] % (Auto) 13.5 % 10/25/24 05:52 Eos % (Auto) 3.7 % 10/25/24 05:52 Baso % (Auto) 0.3 % 10/25/24 05:52 Neut # (Auto) 5.96 10^3/uL (1.8-7.7) 10/25/24 05:52 Lymph # (Auto) 1.3 10^3/uL (0.8-4.8) 10/25/24 05:52 [place] # (Auto) 1.2 10^3/uL (0.2-0.9) H 10/25/24 05:52 Eos # (Auto) 0.3 10^3/uL (0.0-0.8) 10/25/24 05:52 Baso # (Auto) 0.0 10^3/uL (0.0-0.1) 10/25/24 05:52 Absolute Gran (auto) Cancelled 10/20/24 15:54 Nucleated RBC % (auto) 0 % 10/25/24 05:52 Nucleated RBCs # 0.0 /100WBC 10/25/24 05:52 PT 13.70 SECONDS (12.1-14.9) 10/20/24 15:54 INR 1.01 (0.8-1.2) 10/20/24 15:54 Sodium 138 mmol/L (136-145) 10/25/24 05:52 Potassium 4.6 mmol/L (3.5-5.1) 10/25/24 05:52 Chloride 107 mmol/L (98-107) 10/25/24 05:52 Carbon Dioxide 20 mmol/L (22-29) L 10/25/24 05:52 Anion Gap 15.6 (5-19) 10/25/24 05:52 BUN 14 mg/dL (8-23) 10/25/24 05:52 Creatinine 0.5 mg/dL (0.5-0.9) 10/25/24 05:52 GFR Calculation Not Reportable 10/25/24 05:52 Glucose 128 mg/dL (65-115) H 10/25/24 05:52 Estimat Average Glucose 108 10/20/24 18:21 Hemoglobin A1c 5.4 % (4.0-6.0) 10/20/24 18:21 Calculated Osmolality 288 mOsm/kg (285-295) 10/25/24 05:52 Lactic Acid 1.2 mmol/L (0.5-2.2) 10/20/24 15:54 Calcium 8.5 mg/dL (8.5-10.5) 10/25/24 05:52 Phosphorus 2.9 mg/dL (2.5-4.5) 10/25/24 05:52 Magnesium 2.0 mg/dL (1.7-2.3) 10/25/24 05:52 Iron 14 ug/dL (37-145) L 10/24/24 04:23 TIBC 143 mcg/dl 10/24/24 04:23 % Saturation 9.7 % (20-50) L 10/24/24 04:23 Unsat Iron Binding 129 ug/dL (112-347) 10/24/24 04:23 Ferritin 118 ng/mL (15-150) 10/24/24 04:23 Total Bilirubin 0.2 mg/dL (0.15-1.2) 10/25/24 05:52 GGT 536 U/L (5-36) H 10/20/24 18:45 AST 39 U/L (0-32) H 10/25/24 05:52 ALT 21 U/L (0-33) 10/25/24 05:52 Alkaline Phosphatase 171 U/L (35-105) H 10/25/24 05:52 Troponin T Baseline 20 ng/L (0-10) H 10/21/24 10:11 Troponin T 120 Minute 16.94 ng/L (0-10) H 10/21/24 11:56 Delta Troponin T -3.06 ABS# (0-10) L 10/21/24 11:56 Troponin T Hi Sens 6Hr 27.24 ng/L (0-10) H 10/21/24 15:06 Troponin T Hi Sens 6Hr Delta 7.24 ng/L (0-12) 10/21/24 15:06 C-Reactive Protein 292.9 mg/L (0.0-4.9) H 10/25/24 05:52 NT-Pro-B Natriuret Pep 500 pg/mL (0-450) H 10/20/24 15:54 Total Protein 5.7 g/dL (6.6-8.7) L 10/25/24 05:52 Albumin 2.5 g/dL (3.5-5.2) L 10/25/24 05:52 Globulin 3.2 g/dL (1.3-4.6) 10/25/24 05:52 Triglycerides 119 mg/dL (0-150) 10/20/24 15:54 Cholesterol 147 mg/dL (0-200) 10/20/24 15:54 LDL Cholesterol, Calc 79 mg/dL (50-129) 10/20/24 15:54 HDL Cholesterol 44 mg/dL (60-100) L 10/20/24 15:54 LDL/HDL Ratio 1.80 RATIO (0.00-3.22) 10/20/24 15:54 Cholesterol/HDL Ratio 3.34 mg/dL (0.0-4.40) 10/20/24 15:54 Lipase 13 U/L (13-60) 10/20/24 18:45 Procalcitonin 0.21 ng/mL (0-0.5) 10/25/24 05:52 TSH 1.43 uIU/mL (0.27-4.20) 10/20/24 15:54 Urine Color Dark yellow (Yellow) A 10/20/24 23:15 Urine Appearance Clear (CLEAR) 10/20/24 23:15 Urine pH 6.0 (5-7) 10/20/24 23:15 Ur Specific [place] 1.028 (1.005-1.030) 10/20/24 23:15 Urine Protein 1+ (Negative) A 10/20/24 23:15 Urine Glucose (UA) Negative (Normal) 10/20/24 23:15 Urine Ketones Negative (Negative) 10/20/24 23:15 Urine Blood Non-haemolysed trace (Negative) 10/20/24 23:15 Urine Nitrate Negative (Negative) 10/20/24 23:15 Urine Bilirubin Negative (Negative) 10/20/24 23:15 Urine Urobilinogen 1.0 mg/dL (Negative) 10/20/24 23:15 Ur Leukocyte Esterase Trace (Negative) A 10/20/24 23:15 Urine RBC 6-10 /hpf (0-2) 10/20/24 23:15 Urine WBC 11-20 /hpf (0-5) H 10/20/24 23:15 Ur Squamous Epith Cells 0-5 /hpf (0-5) 10/20/24 23:15 Amorphous Sediment Not Reportable 10/20/24 23:15 Urine Bacteria None seen /hpf (NONE) 10/20/24 23:15 Hyaline Casts 1.65 /lpf 10/20/24 23:15 Carbamazepine 7.9 ug/mL (4.0-12.0) 10/24/24 13:06 Adenovirus (PCR) Not detected (NOT DETECT) 10/22/24 14:00 C. pneumoniae DNA (PCR) Not detected (NOT DETECT) 10/22/24 14:00 Coronavirus 229E (PCR) Not detected (NOT DETECT) 10/22/24 14:00 Human Metapneumovir PCR Not detected (NOT DETECT) 10/22/24 14:00 Influenza A (H1) PCR Not detected (NOT DETECT) 10/22/24 14:00 Influ A (H1/09) PCR Not detected (NOT DETECT) 10/22/24 14:00 Influenza A (H3) PCR Not detected (NOT DETECT) 10/22/24 14:00 Influenza Type A (PCR) Not detected (NOT DETECT) 10/22/24 14:00 Influenza Type B (PCR) Not detected (NOT DETECT) 10/22/24 14:00 M. pneumoniae (PCR) Not detected (NOT DETECT) 10/22/24 14:00 Parainfluenza 1 (PCR) Not detected (NOT DETECT) 10/22/24 14:00 Parainfluenza 2 (PCR) Not detected (NOT DETECT) 10/22/24 14:00 Parainfluenza 3 (PCR) Not detected (NOT DETECT) 10/22/24 14:00 Parainfluenza 4 (PCR) Not detected (NOT DETECT) 10/22/24 14:00 RSV Type A (PCR) Not detected (NOT DETECT) 10/22/24 14:00 RSV Type B (PCR) Not detected (NOT DETECT) 10/22/24 14:00 Entero/Rhino (PCR) Detected (NOT DETECT) A 10/22/24 14:00 SARS-CoV-2 (PCR) Not detected (NOT DETECT) 10/22/24 14:00 Blood Type O Positive 10/20/24 18:45 Rho(D) Type Rh positive 10/20/24 18:45 Antibody Screen Negative 10/20/24 18:45 Vitals Last Vital Signs Temp 98.2 F 10/25/24 07:39 Pulse 90 10/25/24 09:33 Resp 16 10/25/24 09:25 BP 130/81 10/25/24 07:39 Pulse Ox 98 10/25/24 09:25 O2 Del Method Room Air 10/25/24 09:25 O2 Flow Rate 4 10/21/24 23:26 Discharge Plan Discharge Patient Disposition: Xfer SNF Condition: Stable Prescriptions: New hydrocodone-acetaminophen 5-325 mg tablet 1 tab PO Q6H PRN (Reason: pain) 7 Days Qty: 28 0RF enoxaparin [Lovenox] 30 mg/0.3 mL syringe 30 mg SUBCUT DAILY 35 Days Qty: 10.5 0RF calcium carbonate-vitamin D3 [Calcium 600 + D(3)] 600 mg-10 mcg (400 unit) tablet 1 tab PO DAILY 30 Days Qty: 30 0RF ertapenem 1 gram recon soln 1 g IV Q24H 6 Days Qty: 6 0RF Continued aspirin [Ranjeet Chewable Aspirin] 81 mg tablet,chewable 81 mg PO DAILY carbamazepine 200 mg tablet 200 mg PO BID lovastatin 20 mg tablet 20 mg PO DAILY metoprolol tartrate 50 mg tablet 50 mg PO BID risperidone 0.25 mg tablet 0.25 mg PO BID topiramate 50 mg tablet 50 mg PO BID ondansetron HCl 4 mg tablet 4 mg PO Q4H PRN (Reason: Nausea) chlorhexidine gluconate 0.12 % mouthwash 15 ml BUCCAL BID ferrous sulfate 325 mg (65 mg iron) tablet 325 mg PO DAILY bisacodyl 10 mg suppository 10 mg [place] DAILY PRN (Reason: Constipation) dextromethorphan-guaifenesin [Diabetic Tussin DM] 10-100 mg/5 mL liquid 5 ml PO Q4H PRN (Reason: Cough) epinephrine [EpiPen 2-Ortega] 0.3 mg/0.3 mL auto-injector 0.3 ml IM ONCE PRN (Reason: Allergic Reaction) nitroglycerin [Nitrostat] 0.4 mg tablet, sublingual 0.4 mg SUBLINGUAL Q5M PRN (Reason: Chest Pain) albuterol sulfate [Ventolin HFA] 90 mcg/actuation HFA aerosol inhaler 1 inh INHALATION Q4H PRN (Reason: Shortness Of Breath) (DME) DME: Walker Unit See Rx Instructions .ROUTE .MEDSUPPLY Qty: 1 0RF Rx Instructions: Code E0143 and E0156 walker 4 wheels and seat lacosamide [Vimpat] 200 mg tablet 200 mg PO BID Qty: 60 5RF (DME) Lateral Business Intelligence Architect Brace See Rx Instructions .Route .MEDSUPPLY Qty: 1 0RF Rx Instructions: As directed pantoprazole [Protonix] 40 mg tablet,delayed release (DR/EC) 40 mg PO DAILY (DME) Hinged Knee brace See Rx Instructions .Route .MEDSUPPLY Qty: 1 0RF Rx Instructions: As directed mupirocin 2 % ointment 1 applic topical BID Qty: 15 0RF trazodone 50 mg tablet 50 mg PO .at bedtime Qty: 30 2RF calcium carbonate-vitamin D3 [Oysco 500/D] 500 mg-5 mcg (200 unit) Tablet 1 tab PO DAILY sennosides [senna] 8.6 mg Tablet 8.6 mg PO BEDTIME PRN (Reason: Constipation) ipratropium-albuterol 0.5 mg-3 mg(2.5 mg base)/3 mL Solution For Nebulization 3 ml INHALATION Q6H PRN (Reason: Shortness Of Breath) arformoterol [Brovana] 15 mcg/2 mL Solution For Nebulization 2 ml INHALATION QAM [place] Vaporub 4.7-1.2-2.6 % Ointment 1 applic TOPICAL BID PRN (Reason: Cough) docusate sodium 100 mg Capsule 100 mg PO BID polyethylene glycol 3350 17 gram/dose Powder 4 g PO DAILY Changed potassium chloride 10 mEq capsule, extended release 10 meq PO DAILY Qty: 30 0RF furosemide 40 mg tablet 20 mg PO DAILY Qty: 30 0RF Discontinued losartan 50 mg tablet 50 mg PO DAILY oxycodone 5 mg tablet 5 mg PO Q6H Discharge Orders: Discharge Order (Routine); Ordered 10/25/24 Ordered By: Ron Nguyen Referrals: [facility] [Outside] Chavez Araujo MD [Primary Care Provider] - Emmanuel Sidhu DO [Physician] - Discharge Diet: Advance as tolerated Discharge Activity: Limit activity as instructed and Use walker/crutches as instructed Patient Instructions: Hydrocodone/Acetaminophen (By mouth), Enoxaparin (By injection), Ertapenem (By injection), Acute Wound Care (DC), Opioid Safety, Post Anesthesia Care Activity Restrictions/Additional Instructions: Orthopedic discharge instructions: Patient may nonweightbearing to the operative lower extremity Posterior hip precautions (avoid excess excessive hip flexion past 90 degrees and internal rotation) Take DVT prophylaxis (blood thinner) as prescribed ) Take pain medication as prescribed Take antinausea medication as needed Supplement with Citracal vitamin D for bone health and healing Ice as needed for pain and swelling Leave Silverlon bandage dressing on for 7 days after that may remove, rinse incision with warm soapy water/shower pat dry keep clean dry and intact and redress with a clean dry dressing. No baths or soap Follow-up in the orthopedic office in 2 weeks from date of surgery Contact the office for any questions or concerns per (fevers, increased drainage or redness around the incision site etc.) -midline placed can remove after last dose of IV abx -invanz 1 gram q24hrs for 6 more days Discharge Attestations Time Spent in Discharge Care*: greater than 30 min Quality Metrics Clinical Quality Measures [ No reported AMI, CVA or VTE this stay] Coding Level of Care Code 76306 Total time (in minutes) for Discharge: 45 Diagnoses Status post hemiarthroplasty of right hip Z96.641 Closed fracture of right hip S72.001A Primary osteoarthritis of right knee M17.11 Osteoarthritis type: primary Status post open reduction and internal fixation (ORIF) of fracture Z98.890; Z 87.81
[2024-10-25] MEDS: AZITHROMYCIN ADD-Vantage 500 MG in 0.9% NaCl ADD-Vantage 250 ML 250 MG IV (11:37)
[2024-10-25] MEDS: mupirocin oint 22 gm 1 APPLIC NASAL (11:37)
--- NOTE | 2024-10-25 12:48 | PICC.NOTE ---
Midline placed to right brachial vein. Referred to vascular access nurse for midline placement due to need for IV antibiotics x 6 days. Risks and benefits discussed and informed consent obtained from pt. Right arm assessed with right brachial vein measuring 3.5 mm, straight, and apparent best choice for placement. Using sterile technique and MST, right brachial vein accessed x 1 stick. Mid-arm circumference measured 10 cm from right AC 33 cm. Trimmed cath 11 cm with 0 cm external length noted. Line secured with stat-lock. Insertion site covered with Biopatch and TSM. Report given to bedside nurse, BO Murray.
[2024-10-25] MEDS: enoxaparin 40 mg/0.4 mL Syringe SUBCUT (15:05)
[2024-10-25] MEDS: pantoprazole 40 mg SDV IVP (17:46)
== END 2024-10-25 17:50 | disposition skilled nursing facility (03) | DRG 522 ==
LOC: ER 16:22 → MEDSURG 17:01
PROVIDERS: Physician Assistant; Student in an Organized Health Care Education/Training Program; Admitting Provider Family Medicine; Emergency Provider Emergency Medicine; PCP Internal Medicine; Visit Provider Family Medicine
PROC: 0SRR019 Replacement of Right Hip Joint, Femoral Surface with Metal Synthetic Substitute, Cemented, Open Approach (ICD-10-PCS; principal; 2024-10-21 17:25)
PROC: 0SRR019 Replacement of Right Hip Joint, Femoral Surface with Metal Synthetic Substitute, Cemented, Open Approach (ICD-10-PCS; CPT 27125; 2024-10-21 17:25)
DX: S72.011A Unspecified intracapsular fracture of right femur, initial encounter for closed fracture (principal); G40.209 Localization-related (focal) (partial) symptomatic epilepsy and epileptic syndromes with complex partial seizures, not intractable, without status epilepticus; N39.0 Urinary tract infection, site not specified; W18.30XA Fall on same level, unspecified, initial encounter; J44.9 Chronic obstructive pulmonary disease, unspecified; K21.9 Gastro-esophageal reflux disease without esophagitis; I10 Essential (primary) hypertension; Z79.51 Long term (current) use of inhaled steroids; Z79.82 Long term (current) use of aspirin; Z79.891 Long term (current) use of opiate analgesic; Z66 Do not resuscitate; Z86.16 Personal history of COVID-19; M81.0 Age-related osteoporosis without current pathological fracture; K59.09 Other constipation; Z90.710 Acquired absence of both cervix and uterus; E66.01 Morbid (severe) obesity due to excess calories; Z68.34 Body mass index [BMI] 34.0-34.9, adult; I73.9 Peripheral vascular disease, unspecified; B96.4 Proteus (mirabilis) (morganii) as the cause of diseases classified elsewhere; R41.82 Altered mental status, unspecified; M17.11 Unilateral primary osteoarthritis, right knee; E78.5 Hyperlipidemia, unspecified
CPT/HCPCS: 36415; 36569; 36592; 51702; 70450; 71045; 71250; 72170; 73502; 73552; 73700; 74176; 76000; 76770; 80048; 80053; 80061; 80156; 81001; 82728; 82977; 83036; 83540; 83550; 83605; 83690; 83735; 83880; 84100; 84145; 84443; 84484; 85025; 85610; 86140; 86850; 86900; 87040; 87070; 87077; 87086; 87186; 87486; 87581; 87633; 93005; 94640; 94664; 96372; 96374; 97161; 97165; 97530; 99285; C1713 ×2; C1751; C1776; J0131; J0456; J0690; J0696; J1100; J1171; J1335; J1650; J1885; J2270; J2371; J2405; J2470; J2704; J3010; J3370; J3490; J7030; J7050; J7613

== ENCOUNTER 2024-11-03 14:21 | Emergency (ER) | payer MEDICARE, MEDICAID, SELFPAY ==
[2024-11-03 14:30] VITALS: BP 95/74; PULSE 64; RESP 14; TEMP 36.4; O2SAT 99
--- NOTE | 2024-11-03 14:30 | CTR_ITS ---
PROCEDURE INFORMATION: Exam: CT Cervical Spine Without Contrast Exam date and time: 11/03/2024 3:27 PM Age: 84 years old Clinical indication: Injury or trauma; Fall; Blunt trauma; Injury date: 11/03/2024 TECHNIQUE: Imaging protocol: Computed tomography of the cervical spine without contrast. Radiation optimization: All CT scans at this facility use at least one of these dose optimization techniques: automated exposure control; mA and/or kV adjustment per patient size (includes targeted exams where dose is matched to clinical indication); or iterative reconstruction. COMPARISON: CT head wo con* [id number] 11/03/2024 3:27 PM RADIATION DOSE METRICS: Total DLP (mGy-cm): 131.1 FINDINGS: Bones: There are no anterior wedging deformities. No acute lucent fracture lines are visualized. There is right convexity of the cervical spine. Spondylitic changes are seen at the C3-C4 through C6-C7 levels. Spinal cord: No severe central canal or neural foraminal stenosis demonstrated by CT. Lungs: Lung apices are normal. Soft tissues: Unremarkable. CT/CT cervical spin wo con* [id number] IMPRESSION: No acute cervical spinal injury demonstrated by CT.
--- NOTE | 2024-11-03 14:30 | CTR_ITS ---
PROCEDURE INFORMATION: Exam: CT Head Without Contrast Exam date and time: 11/03/2024 3:27 PM Age: 84 years old Clinical indication: Injury or trauma; Fall; Work related; Blunt trauma (contusions or hematomas); Without loss of consciousness; Injury date: 11/03/2024 TECHNIQUE: Imaging protocol: Computed tomography of the head without contrast. Radiation optimization: All CT scans at this facility use at least one of these dose optimization techniques: automated exposure control; mA and/or kV adjustment per patient size (includes targeted exams where dose is matched to clinical indication); or iterative reconstruction. COMPARISON: CT head wo con* [id number] 10/24/2024 11:09 AM RADIATION DOSE METRICS: Total DLP (mGy-cm): 1110.8 FINDINGS: Brain: There are global involutional changes of the brain which are in keeping with the patient's age. Periventricular hypodensities are nonspecific but most likely reflect chronic microvascular ischemic disease. There is no acute intracranial hemorrhage or abnormal extra-axial fluid collection identified. There is no intracranial mass effect or shift of midline structures. The foss-white differentiation is preserved throughout. There is no sulcal effacement. The basilar cisterns are open. Cerebral ventricles: No hydrocephalus or ventricular effacement. Paranasal sinuses: There is mild sinus mucosal disease, with no air-fluid level identified. Mastoid air cells: Visualized mastoid air cells are aerated. Bones: No calvarial fracture or destructive osseous lesions are seen. Soft tissues: Unremarkable. CT/CT head wo con* [id number] IMPRESSION: No acute intracranial pathology identified by CT.
--- NOTE | 2024-11-03 14:30 | XRR_ITS ---
PROCEDURE INFORMATION: Exam: XR Left Ribs with PA Chest Exam date and time: 11/03/2024 3:56 PM Age: 84 years old Clinical indication: Injury or trauma; Fall; Rib area, left side; Blunt trauma TECHNIQUE: Imaging protocol: Radiologic exam of the left ribs with PA chest. Views: 3 views COMPARISON: [place] [id number] 10/22/2024 2:52 PM FINDINGS: Lungs: No alveolar consolidation. Pleural spaces: No pleural effusion. No pneumothorax. Heart/Mediastinum: Heart size upper limits of normal. Hiatal hernia. Bones/joints: There are acute appearing fractures of the left posterolateral ribs 5, 6 and 7, with questionable fractures of the left ribs 4 and 8. The bones are osteopenic. XR/XR ribs LT mn 3V w CXR1V [id number] IMPRESSION: 1. Acute fractures left posterolateral ribs 5, 6 and 7. Question fractures of left ribs 4 and 8. 2. Hiatal hernia.
--- NOTE | 2024-11-03 14:31 | XRR_ITS ---
PROCEDURE INFORMATION: Exam: XR Right Hip Exam date and time: 11/03/2024 3:48 PM Age: 84 years old Clinical indication: Injury or trauma; Fall; Blunt trauma (contusions or hematomas); Right; Hip TECHNIQUE: Imaging protocol: Radiologic exam of the right hip. Views: 1 view hip with pelvis when performed. COMPARISON: CR XR pelvis 1-2V* [id number] 11/03/2024 3:48 PM FINDINGS: Bones/joints: Right hip arthroplasty. Normal alignment. There is an old healed fracture the femoral diaphysis distal to the arthroplasty. Chronic fracture deformity of right inferior pubic ramus. The bones are osteopenic. Soft tissues: Unremarkable. Gastrointestinal tract: Retained fecal material is noted in the colon. XR/XR hip RT 2-3V wo/w pel* [id number] IMPRESSION: 1. Right hip arthroplasty with anatomic alignment. 2. No acute fracture identified. 3. Old healed fracture the femoral diaphysis distal to the arthroplasty. 4. Chronic fracture deformity of right inferior pubic ramus.
[2024-11-03 14:41] VITALS: BP 85/64; PULSE 58; O2SAT 98
--- NOTE | 2024-11-03 14:46 | XRR_ITS ---
PROCEDURE INFORMATION: Exam: XR Left Shoulder Exam date and time: 11/03/2024 3:48 PM Age: 84 years old Clinical indication: Injury or trauma; Fall; Blunt trauma (contusions or hematomas); Shoulder; Left; Injury date: 11/03/24 TECHNIQUE: Imaging protocol: Radiologic exam of the left shoulder. Views: 2 or more views. COMPARISON: CT cervical spin wo con* [id number] 11/03/2024 3:27 PM FINDINGS: Bones/joints: Multiple left-sided rib fractures. No dislocation is seen. The acromioclavicular and glenohumeral joints are normally aligned. No destructive osseous lesions are seen. There are no findings of calcific tendinitis. Soft tissues: Normal. XR/XR shoulder LT min 2V* [id number] IMPRESSION: 1. No acute radiographic abnormality of the shoulder. 2. Multiple left-sided rib fractures.
--- NOTE | 2024-11-03 14:47 | ED_ITS ---
HPI - Fall 2 General: Chief Complaint: Fall Stated Complaint: FALL Time Seen by Provider: 11/03/24 14:23 Source: patient and EMS Mode of arrival: EMS Limitations: no limitations History of Present Illness: 84-year-old female is here from group home after falling out of her bed it was an unwitnessed fall she states she had rolled out of her bed she did have a recent right hip surgery 3 weeks ago she states she had landed on her left side she complains of some left-sided chest pain and left shoulder pain she is unsure if she hit her head rates her pain a 5 out of 10 currently Associated symptoms-after fall: Reports chest pain; Denies abdominal pain, headache(s) or neck pain Related Data Home Medications Medication Instructions Recorded Confirmed albuterol sulfate 90 mcg/actuation 1 inh inhalation Q4H PRN Shortness 12/28/19 11/03/24 aerosol inhaler (Ventolin HFA) Of Breath aspirin 81 mg chewable tablet 81 mg PO DAILY 12/28/19 11/03/24 (Ranjeet Chewable Low Dose Aspirin) bisacodyl 10 mg rectal suppository 10 mg [place] DAILY PRN Constipation 12/28/19 11/03/24 carbamazepine 200 mg tablet 200 mg PO BID 12/28/19 11/03/24 chlorhexidine gluconate 0.12 % 15 ml buccal BID 12/28/19 11/03/24 mouthwash dextromethorphan-guaifenesin 10 5 ml PO Q6H PRN Cough 12/28/19 11/03/24 mg-100 mg/5 mL oral liquid (Diabetic Tussin DM) epinephrine 0.3 mg/0.3 mL 0.3 ml IM ONCE PRN Allergic 12/28/19 11/03/24 injection, auto-injector (EpiPen Reaction 2-Ortega) ferrous sulfate 325 mg (65 mg 325 mg PO DAILY 12/28/19 11/03/24 iron) tablet lovastatin 20 mg tablet 20 mg PO BEDTIME 12/28/19 11/03/24 metoprolol tartrate 50 mg tablet 50 mg PO BID 12/28/19 11/03/24 nitroglycerin 0.4 mg sublingual 0.4 mg sublingual Q5M PRN Chest 12/28/19 11/03/24 tablet (Nitrostat) Pain ondansetron HCl 4 mg tablet 4 mg PO Q4H PRN Nausea And Vomiting 12/28/19 11/03/24 risperidone 0.25 mg tablet 0.25 mg PO BEDTIME 12/28/19 11/03/24 topiramate 50 mg tablet 50 mg PO BID 12/28/19 11/03/24 arformoterol 15 mcg/2 mL solution 2 ml inhalation QAM 05/05/23 11/03/24 for nebulization (Brovana) ipratropium 0.5 mg-albuterol 3 mg 3 ml inhalation Q6H PRN Shortness 05/05/23 11/03/24 (2.5 mg base)/3 mL nebulization Of Breath soln sennosides 8.6 mg tablet (senna) 8.6 mg PO BID Constipation 05/05/23 11/03/24 pantoprazole 40 mg tablet,delayed 40 mg PO DAILY 08/05/24 11/03/24 release (Protonix) docusate sodium 100 mg capsule 100 mg PO BID 10/15/24 11/03/24 polyethylene glycol 3350 17 17 g PO .Q AFTERNOON 10/20/24 11/03/24 gram/dose oral powder acetaminophen 325 mg tablet 650 mg PO Q6H PRN Pain 11/03/24 11/03/24 loperamide 2 mg-simethicone 125 mg See Rx Instructions .Route 11/03/24 11/03/24 tablet .COMPLEX PRN Diarrhea multivitamin with folic acid 400 1 tab PO QAM 11/03/24 11/03/24 mcg tablet (Therems Multivitamin) oxycodone 5 mg tablet 5 mg PO Q6H PRN Pain 11/03/24 11/03/24 sennosides 8.6 mg tablet (senna) 8.6 mg PO BEDTIME PRN Constipation 11/03/24 11/03/24 Previous Rx's Medication Instructions Recorded trazodone 50 mg tablet 50 mg PO .at bedtime #30 tabs 04/01/21 DME: [facility] #1 ea 09/21/22 lacosamide 200 mg tablet (Vimpat) 200 mg PO BID #60 tabs 01/25/23 [facility] Brace #1 ea 07/21/23 Hinged Knee brace #1 ea 09/29/24 mupirocin 2 % topical ointment 1 applic topical BID #15 grams 10/13/24 calcium 600 mg (as 1 tab PO DAILY Bone health and 10/25/24 carbonate)-vitamin D3 10 mcg (400 healing 30 days #30 tabs unit) tablet (Calcium 600 + D(3)) enoxaparin 30 mg/0.3 mL 30 mg (0.3 mL) SUBCUT DAILY Blood 10/25/24 subcutaneous syringe (Lovenox) Clot Prevention 35 days #10.5 mL furosemide 40 mg tablet 20 mg (1/2 x 40 mg) PO DAILY #30 10/25/24 tabs potassium chloride 10 mEq 10 meq PO DAILY #30 caps 10/25/24 capsule,extended release Allergies Allergy/AdvReac Type Severity Reaction Status Date / Time lisinopril Allergy ALGY-Anaphy Verified 10/13/24 14:38 laxis Review of Systems 2 Const: Denies: fever(s), chills, body aches or change in appetite ENMT: Denies: throat pain or dental pain Card: Reports: chest pain Resp: Denies: dyspnea GI: Denies: abdominal pain, nausea, vomiting or diarrhea Musc: Denies: neck pain or back pain Skin/Breast: Denies: rash Neuro: Denies: headache(s) PFSH ED 2 PFSH: Medical History DNR no code (do not resuscitate) COVID-19 Low serum iron Obesity, morbid, BMI 40.0-49.9 Vitamin D deficiency Urinary incontinence in female Osteoporosis Lives in assisted living facility GERD (gastroesophageal reflux disease) Essential (primary) hypertension Dyslipidemia DJD (degenerative joint disease) COPD mixed type Chronic constipation Complex partial epilepsy Surgical History History of total hysterectomy Family History Mother Diabetes Heart disease Family/Other Diabetes Aunt Father Heart disease Social History Smoking and tobacco/nicotine status: never used tobacco/nicotine Second hand smoke exposure: No Substance/Drug Use: never Lives independently: No Housing: Assisted Living Facility Marital status: Current occupational status: retired Physical Exam 2 Const: COMMON NORMALS: no acute distress, patient oriented x3 and healthy appearing HENMT: COMMON NORMALS: normocephalic and atraumatic HEAD & SCALP: n ormocephalic and atraumatic Eye: COMMON NORMALS: Equal, round and reactive pupils present and EOMs intact bilaterally PUPIL: Yes Equal, round and reactive pupils present Neck/C-Spine: COMMON NORMALS: full ROM and supple Chest: COMMONS NORMALS: normal inspection of the chest and normal palpation of entire chest wall Resp: COMMON NORMALS: normal respiratory effort, No retractions, No use of accessory muscles and clear to auscultation bilaterally AUSCULTATION: clear to auscultation bilaterally Cardio: COMMON NORMALS: regular rate, regular rhythm and No murmurs present (Cardio) RATE: regular rate RHYTHM: regular rhythm GI: COMMON NORMALS: Normal to inspection, nondistended, normoactive bowel sounds present, Soft to palpation, non-tender and no masses PALPATION: Yes Soft to palpation Extremity: COMMON NORMALS: normal to inspection and full ROM Neuro: COMMON NORMALS: patient oriented x3, moves all extremities and no focal motor deficits Psych: COMMON NORMALS: mental status grossly normal, Normal thought process present and cooperative THOUGHT PROCESS: Normal thought process present Skin: COMMON NORMALS: no rashes or lesions noted and no wounds GENERAL SKIN EXAM: no rashes or lesions noted Course 2 Vital Signs: Vital signs: Vital Signs Temperature 97.6 F 11/03/24 14:30 Pulse Rate 75 11/03/24 19:19 Respiratory Rate 14 11/03/24 14:30 Blood Pressure 126/63 11/03/24 19:54 Pulse Oximetry 100 11/03/24 19:54 Oxygen Delivery Me thod Nasal Cannula 11/03/24 18:00 Oxygen Flow Rate 2 11/03/24 18:00 MDM - Fall Medical Decision Making Patient presents for some rib pain after a fall imaging here is normal head CT is normal hip was normal patient stable for discharge follow-up PCP return if worsening. Medical Records I reviewed the patient's medical records. Lab Data I reviewed the patient's lab results. 11/03/24 17:38 11/03/24 17:38 Radiology Impressions Cervical Spine CT 11/03/24 14:30 IMPRESSION: No acute cervical spinal injury demonstrated by CT. Head CT 11/03/24 14:30 IMPRESSION: No acute intracranial pathology identified by CT. Ribs X-Ray 11/03/24 14:30 IMPRESSION: 1. Acute fractures left posterolateral ribs 5, 6 and 7. Question fractures of left ribs 4 and 8. 2. Hiatal hernia. Hip/Pelvis X-Ray 11/03/24 14:31 IMPRESSION: 1. Right hip arthroplasty with anatomic alignment. 2. No acute fracture identified. 3. Old healed fracture the femoral diaphysis distal to the arthroplasty. 4. Chronic fracture deformity of right inferior pubic ramus. Shoulder X-Ray 11/03/24 14:46 IMPRESSION: 1. No acute radiographic abnormality of the shoulder. 2. Multiple left-sided rib fractures. Chest/Abdomen/Pelvis CT 11/03/24 16:29 IMPRESSION: 1. Multiple compression deformities of the thoracic spine, unchanged from previous CT. 2. Old healed rib fractures bilaterally. 3. Cardiomegaly. 4. Atelectasis in the left lower lobe. 5. Moderate hernia. IMPRESSION: 1. No acute fracture identified. 2. Right hip arthroplasty, with large hip effusion versus resolving hematoma or abscess. 3. No traumatic visceral injury identified. 4. Intrahepatic and extrahepatic biliary ductal dilatation post cholecystectomy. 5. Moderate hiatal hernia. COMMENTS: Consistent with the [employer]'s Incidental Findings Committee white paper (J Am Tiffany Radiol 2018): Any incidental renal lesion less than 1 cm or classified as too small to characterize, or any incidental cystic renal lesion characterized as simple-appearing, is likely benign. No follow-up imaging is recommended for these lesions per consensus recommendations based on imaging criteria. Laboratory Results WBC 10.39 10^3/uL (3.29-11.43) 11/03/24 17:38 RBC 3.24 10^6/uL (3.85-5.65) L 11/03/24 17:38 Hgb 9.40 g/dL (11.27-16.99) L 11/03/24 17:38 Hct 31.4 % (36-47) L 11/03/24 17:38 MCV 96.9 fl (85-98) 11/03/24 17:38 MCH 29.0 pg (27-33) 11/03/24 17:38 MCHC 29.9 g/dL (30-55) L 11/03/24 17:38 RDW 14.4 % (12.1-15.1) 11/03/24 17:38 Plt Count 470 10^3/cmm (157-399) H 11/03/24 17:38 MPV 8.6 fL (7.4-10.4) 11/03/24 17:38 Neut % (Auto) 63.5 % 11/03/24 17:38 Lymph % (Auto) 20.7 % 11/03/24 17:38 Hendricks % (Auto) 9.8 % 11/03/24 17:38 Eos % (Auto) 3.7 % 11/03/24 17:38 Baso % (Auto) 0.4 % 11/03/24 17:38 Neut # (Auto) 6.60 10^3/uL (1.8-7.7) 11/03/24 17:38 Lymph # (Auto) 2.2 10^3/uL (0.8-4.8) 11/03/24 17:38 Hendricks # (Auto) 1.0 10^3/uL (0.2-0.9) H 11/03/24 17:38 Eos # (Auto) 0.4 10^3/uL (0.0-0.8) 11/03/24 17:38 Baso # (Auto) 0.0 10^3/uL (0.0-0.1) 11/03/24 17:38 Nucleated RBC % (auto) 0 % 11/03/24 17:38 Nucleated RBCs # 0.0 /100WBC 11/03/24 17:38 Sodium 139 mmol/L (136-145) 11/03/24 17:38 Potassium 4.4 mmol/L (3.5-5.1) 11/03/24 17:38 Chloride 105 mmol/L (98-107) 11/03/24 17:38 Carbon Dioxide 26 mmol/L (22-29) 11/03/24 17:38 Anion Gap 12.4 (5-19) 11/03/24 17:38 BUN 24 mg/dL (8-23) H 11/03/24 17:38 Creatinine 0.7 mg/dL (0.5-0.9) 11/03/24 17:38 GFR Calculation Not Reportable 11/03/24 17:38 Glucose 91 mg/dL (65-115) 11/03/24 17:38 Calculated Osmolality 292 mOsm/kg (285-295) 11/03/24 17:38 Calcium 8.6 mg/dL (8.5-10.5) 11/03/24 17:38 No radiology studies performed this visit Discharge Plan Discharge Patient Disposition: Home Clinical Impression: Fall, Chest wall pain Condition: Stable Prescriptions: No Action aspirin [Ranjeet Chewable Aspirin] 81 mg tablet,chewable 81 mg PO DAILY carbamazepine 200 mg tablet 200 mg PO BID lovastatin 20 mg tablet 20 mg PO BEDTIME metoprolol tartrate 50 mg tablet 50 mg PO BID risperidone 0.25 mg tablet 0.25 mg PO BEDTIME topiramate 50 mg tablet 50 mg PO BID ondansetron HCl 4 mg tablet 4 mg PO Q4H PRN (Reason: Nausea And Vomiting) chlorhexidine gluconate 0.12 % mouthwash 15 ml BUCCAL BID ferrous sulfate 325 mg (65 mg iron) tablet 325 mg PO DAILY bisacodyl 10 mg suppository 10 mg IL DAILY PRN (Reason: Constipation) dextromethorphan-guaifenesin [Diabetic Tussin DM] 10-100 mg/5 mL liquid 5 ml PO Q6H PRN (Reason: Cough) epinephrine [EpiPen 2-Ortega] 0.3 mg/0.3 mL auto-injector 0.3 ml IM ONCE PRN (Reason: Allergic Reaction) nitroglycerin [Nitrostat] 0.4 mg tablet, sublingual 0.4 mg SUBLINGUAL Q5M PRN (Reason: Chest Pain) albuterol sulfate [Ventolin HFA] 90 mcg/actuation HFA aerosol inhaler 1 inh INHALATION Q4H PRN (Reason: Shortness Of Breath) (DME) DME: [facility] See Rx Instructions .ROUTE .MEDSUPPLY Qty: 1 0RF Rx Instructions: Code E0143 and E0156 walker 4 wheels and seat lacosamide [Vimpat] 200 mg tablet 200 mg PO BID Qty: 60 5RF (DME) [facility] Brace See Rx Instructions .Route .MEDSUPPLY Qty: 1 0RF Rx Instructions: As directed pantoprazole [Protonix] 40 mg tablet,delayed release (DR/EC) 40 mg PO DAILY (DME) Hinged Knee brace See Rx Instructions .Route .MEDSUPPLY Qty: 1 0RF Rx Instructions: As directed mupirocin 2 % ointment 1 applic topical BID Qty: 15 0RF trazodone 50 mg tablet 50 mg PO .at bedtime Qty: 30 2RF sennosides [senna] 8.6 mg Tablet 8.6 mg PO BID ipratropium-albuterol 0.5 mg-3 mg(2.5 mg base)/3 mL Solution For Nebulization 3 ml INHALATION Q6H PRN (Reason: Shortness Of Breath) arformoterol [Brovana] 15 mcg/2 mL Solution For Nebulization 2 ml INHALATION QAM docusate sodium 100 mg Capsule 100 mg PO BID polyethylene glycol 3350 17 gram/dose Powder 17 g PO .Q AFTERNOON enoxaparin [Lovenox] 30 mg/0.3 mL syringe 30 mg SUBCUT DAILY 35 Days Qty: 10.5 0RF calcium carbonate-vitamin D3 [Calcium 600 + D(3)] 600 mg-10 mcg (400 unit) tablet 1 tab PO DAILY 30 Days Qty: 30 0RF potassium chloride 10 mEq capsule, extended release 10 meq PO DAILY Qty: 30 0RF furosemide 40 mg tablet 20 mg PO DAILY Qty: 30 0RF multivitamin with folic acid [Therems Multivitamin] 400 mcg Tablet 1 tab PO QAM sennosides [senna] 8.6 mg Tablet 8.6 mg PO BEDTIME PRN (Reason: Constipation) acetaminophen 325 mg Tablet 650 mg PO Q6H PRN (Reason: Pain) loperamide-simethicone [Imodium Advanced] 2-125 mg Tablet See Rx Instructions .ROUTE .COMPLEX PRN (Reason: Diarrhea) Rx Instructions: Take 1 tablet by mouth as needed for 1st loose stool, then 1 tablet every hour after. Do not exceed 4 tabletss in 24 hrs. oxycodone 5 mg tablet 5 mg PO Q6H PRN (Reason: Pain) Discharge Orders: Discharge ED (Routine); Ordered 11/03/24 Ordered By: Sanchez Clark Referrals: Chavez Araujo MD [Primary Care Provider] - Discharge Diet: Advance as tolerated Discharge Activity: Resume usual activity Patient Instructions: Chest Wall Pain (ED), Chest Contusion (ED) Coding Level of Care Code ED Case Resource Manager for Charli Novoa
--- NOTE | 2024-11-03 15:46 | PC.PHAR ---
Verified with Kim at [facility]-Pt is taking Lovenox 30/0.3ml injection once daily. Not on Pts' Medication Administration Record. Pt should be taking daily at 8 am through 11/30/2024. No record of medication being given yet today 11/03/24.
--- NOTE | 2024-11-03 16:29 | CTR_ITS ---
PROCEDURE INFORMATION: Exam: CT Chest With Contrast; Diagnostic Exam date and time: 11/03/2024 6:09 PM Age: 84 years old Clinical indication: Injury or trauma; Fall; Generalized; Blunt trauma (contusions or hematomas) TECHNIQUE: Imaging protocol: Diagnostic computed tomography of the chest with contrast. Radiation optimization: All CT scans at this facility use at least one of these dose optimization techniques: automated exposure control; mA and/or kV adjustment per patient size (includes targeted exams where dose is matched to clinical indication); or iterative reconstruction. Contrast material: OMNI 350; Contrast volume: 100 ml; Contrast route: INTRAVENOUS (IV); COMPARISON: [place] [id number] 10/22/2024 2:52 PM RADIATION DOSE METRICS: Total DLP (mGy-cm): 1111.99 FINDINGS: Thyroid: Enlarged nodular right thyroid lobe. Lungs: See Pleural spaces finding. Pleural spaces: No pneumothorax. No pleural effusion. Atelectasis is seen in the left lower lobe. Heart: Cardiomegaly. No pericardial effusion. Coronary arterial calcifications are identified. Lymph nodes: No mediastinal or hilar lymphadenopathy. Vasculature: No thoracic aortic aneurysm or dissection. Atherosclerotic vascular disease. The thoracic aorta is tortuous. Diaphragm: There is a moderate hiatal hernia. Bones/joints: Multiple compression deformities of the thoracic spine are unchanged compared to 10/22/2024 CT. Old healed rib fractures are seen. No acute displaced fracture is visualized. Soft tissues: Unremarkable. PROCEDURE INFORMATION: Exam: CT Abdomen And Pelvis With Contrast Exam date and time: 11/03/2024 6:09 PM Age: 84 years old Clinical indication: Injury or trauma; Fall; Generalized; Blunt trauma (contusions or hematomas) TECHNIQUE: Imaging protocol: Computed tomography of the abdomen and pelvis with contrast. Radiation optimization: All CT scans at this facility use at least one of these dose optimization techniques: automated exposure control; mA and/or kV adjustment per patient size (includes targeted exams where dose is matched to clinical indication); or iterative reconstruction. Contrast material: OMNI 350; Contrast volume: 100 ml; Contrast route: INTRAVENOUS (IV); COMPARISON: [place] [facility] [place] [id number] 10/22/2024 2:52 PM RADIATION DOSE METRICS: Total DLP (mGy-cm): 1111.99 FINDINGS: Liver: There are no focal liver lesions present. Gallbladder and biliary ducts: There is intrahepatic and extrahepatic biliary ductal dilatation. The common duct measures up to 2.7 cm in diameter. Cholecystectomy. Pancreas: There are no findings of pancreatitis. No pancreatic mass is identified. Spleen: The spleen is normal. Adrenal glands: No adrenal mass is seen. Kidneys and ureters: There is no evidence of hydronephrosis. Simple appearing left renal cortical cyst requires no further follow-up imaging. Stomach and bowel: Retained fecal material is noted in the colon. Appendix: No findings of acute appendicitis. No bowel obstruction. Intraperitoneal space: No free air. No free fluid. Vasculature: No abdominal aortic aneurysm. Atherosclerotic vascular disease is noted. Lymph nodes: No pathologically enlarged lymph nodes are identified. Urinary bladder: As visualized, the bladder is unremarkable. Reproductive: Unremarkable as visualized. Bones/joints: Right hip arthroplasty. There is a large right hip effusion versus periarticular abscess or resolving hematoma. Correlate with clinical information and consider aspiration, if indicated. Thoracic and lumbar compression deformities are unchanged compared to previous CT. There is an old healed fracture of the right inferior pubic ramus. Spinal degenerative changes are noted. Soft tissues: There is a moderate hernia. The stomach is otherwise unremarkable. CT/CT chest abdpel w/*[id number] IMPRESSION: 1. Multiple compression deformities of the thoracic spine, unchanged from previous CT. 2. Old healed rib fractures bilaterally. 3. Cardiomegaly. 4. Atelectasis in the left lower lobe. 5. Moderate hernia. IMPRESSION: 1. No acute fracture identified. 2. Right hip arthroplasty, with large hip effusion versus resolving hematoma or abscess. 3. No traumatic visceral injury identified. 4. Intrahepatic and extrahepatic biliary ductal dilatation post cholecystectomy. 5. Moderate hiatal hernia. COMMENTS: Consistent with the [employer]'s Incidental Findings Committee white paper (J Am Tiffany Radiol 2018): Any incidental renal lesion less than 1 cm or classified as too small to characterize, or any incidental cystic renal lesion characterized as simple-appearing, is likely benign. No follow-up imaging is recommended for these lesions per consensus recommendations based on imaging criteria.
[2024-11-03 16:41] VITALS: BP 120/65; PULSE 65; O2SAT 100
[2024-11-03 17:58] LABS: Basophils % 0.4 %; Eosinophils # 0.4 10^3/uL (0.0-0.8); Eosinophils % 3.7 %; Hematocrit 31.4 % (36-47); Lymphocytes # 2.2 10^3/uL (0.8-4.8); Lymphocytes % 20.7 %; Mean Corpuscular HGB Conc 29.9 g/dL (30-55); Mean Corpuscular Volume 96.9 fl (85-98); Mean Platelet Volume 8.6 fL (7.4-10.4); Monocytes % 9.8 %; Neutrophils % 63.5 %; Nucleated Red Blood Cells % 0 %; Platelet Count 470 10^3/cmm (157-399); Red Blood Count 3.24 10^6/uL (3.85-5.65); Red Cell Distribution Width 14.4 % (12.1-15.1); White Blood Count 10.39 10^3/uL (3.29-11.43)
[2024-11-03 18:00] VITALS: PULSE 66; O2SAT 100
[2024-11-03 18:11] LABS: Anion Gap 12.4 (5-19); Blood Urea Nitrogen 24 mg/dL (8-23); Calcium 8.6 mg/dL (8.5-10.5); Carbon Dioxide 26 mmol/L (22-29); Chloride 105 mmol/L (98-107); Creatinine Clr Calc Pharmacy 53.1447; Glucose 91 mg/dL (65-115); Osmolality Calculated 292 mOsm/kg (285-295); Potassium 4.4 mmol/L (3.5-5.1); Sodium 139 mmol/L (136-145)
[2024-11-03] MEDS: iohexol 350 mg/mL 500 mL Btl (per mL) IV (18:21)
[2024-11-03 19:19] VITALS: BP 90/71; PULSE 75; O2SAT 100
--- NOTE | 2024-11-03 19:52 | PC.NURSE ---
REPORT CALLED BACK TO LUCRECIA SOLOMON
[2024-11-03 19:54] VITALS: BP 126/63; O2SAT 100
== END 2024-11-03 19:59 | disposition home or self-care (01) ==
PROVIDERS: Emergency Provider Emergency Medicine; PCP Internal Medicine
DX: R07.89 Other chest pain (principal); W06.XXXA Fall from bed, initial encounter; Z79.82 Long term (current) use of aspirin; I10 Essential (primary) hypertension; E78.5 Hyperlipidemia, unspecified; J44.89 Other specified chronic obstructive pulmonary disease
CPT/HCPCS: 36415; 70450; 71101; 71260; 72125; 72170; 73030; 73502; 74177; 80048; 85025; 99285

== ENCOUNTER → 2024-11-08 14:41 | Outpatient (BNVA) | payer MEDICARE, MEDICAID, SELFPAY | PROVIDERS: PCP Internal Medicine; Visit Provider Physician Assistant | DX: Z98.890 Other specified postprocedural states (principal); Z87.81 Personal history of (healed) traumatic fracture | CPT/HCPCS: 73502; 99024 ==

== ENCOUNTER → 2024-12-01 13:07 | Outpatient (BNVA) | payer MEDICARE, MEDICAID, SELFPAY | PROVIDERS: PCP Internal Medicine; Visit Provider Physician Assistant | DX: Z98.890 Other specified postprocedural states (principal); Z87.81 Personal history of (healed) traumatic fracture | CPT/HCPCS: 73502; 73552; 99024 ==

== ENCOUNTER → 2024-12-15 15:30 | Outpatient (BNVA) | payer MEDICARE, MEDICAID, SELFPAY | PROVIDERS: PCP Internal Medicine; Visit Provider Podiatrist Foot & Ankle Surgery | DX: L60.3 Nail dystrophy (principal); I73.9 Peripheral vascular disease, unspecified | CPT/HCPCS: 11721 ==

== ENCOUNTER 2024-12-22 14:03 | Outpatient (CLI) | payer MEDICARE, MEDICAID, SELFPAY ==
--- NOTE | 2024-12-22 14:12 | XR_ITS ---
WS: [id number] Right femur and thigh, AP and lateral views, 12/22/2024 Clinical Data: post op right hip/femur ORIF Comparison: Right thigh and femur, 12/01/2023 Findings: The right hip arthroplasty remains in good position. No periprosthetic fractures or loosening is seen . There isn't healed distal right femoral fracture. There is irregularity of the inferior right ischi al pubic ramus. There is osteoarthritis and osteoporosis of the right knee. The soft tissues are normal. XR/XR femur RT min 2V* [id number] Impression: 1. Stable right hip arthroplasty. 2. Old distal right femoral fracture possible right inferior pubic ischial talat s fracture 3. 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
--- NOTE | 2024-12-22 14:12 | XR_ITS ---
WS: [id number] Right hip, 2 views, 12/22/2024 Clinical Data: post op right hip/femur Comparison: Right hip, 12/01/2024 Findings: The right hip arthroplasty remains in the same position. No periprosthetic loosening or fractures are seen. The old inferior right pubic symphyseal fracture is seen. The adjacent right pelvis and right SI joints show no changes. 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 There is a f ecal impaction. XR/XR hip RT 2-3V wo/w pel* [id number] Impression: Stable right hip arthroplasty.
== END 2024-12-22 14:04 | disposition home or self-care (01) ==
LOC: RAD 14:05
PROVIDERS: PCP Internal Medicine; Visit Provider Student in an Organized Health Care Education/Training Program
DX: Z98.890 Other specified postprocedural states (principal); Z87.81 Personal history of (healed) traumatic fracture; M19.09 Primary osteoarthritis, other specified site; K56.41 Fecal impaction; R93.89 Abnormal findings on diagnostic imaging of other specified body structures; M17.11 Unilateral primary osteoarthritis, right knee; M81.8 Other osteoporosis without current pathological fracture
CPT/HCPCS: 73502; 73552

== ENCOUNTER → 2025-03-22 07:45 | Outpatient (BNVA) | payer MEDICARE, MEDICAID, SELFPAY | PROVIDERS: PCP Internal Medicine; Visit Provider Podiatrist Foot & Ankle Surgery | DX: I73.9 Peripheral vascular disease, unspecified (principal); L60.3 Nail dystrophy | CPT/HCPCS: 11721 ==

== ENCOUNTER → 2025-03-28 13:24 | Outpatient (BNVA) | payer MEDICARE, MEDICAID, SELFPAY | PROVIDERS: PCP Internal Medicine; Visit Provider Physician Assistant | DX: Z98.890 Other specified postprocedural states (principal); Z87.81 Personal history of (healed) traumatic fracture | CPT/HCPCS: 73502; 73552 ==

== ENCOUNTER 2025-03-28 15:17 | Outpatient (CLI) | payer MEDICARE, MEDICAID, SELFPAY | END 2025-03-28 15:18 | disposition home or self-care (01) | LOC: SPT 15:18 | PROVIDERS: PCP Internal Medicine; Visit Provider Physician Assistant | DX: Z46.89 Encounter for fitting and adjustment of other specified devices (principal); M17.11 Unilateral primary osteoarthritis, right knee | CPT/HCPCS: 97760; L1851 ==

== ENCOUNTER → 2025-04-04 13:25 | Outpatient (BNVA) | payer MEDICARE, MEDICAID, SELFPAY | PROVIDERS: PCP Internal Medicine; Visit Provider Student in an Organized Health Care Education/Training Program | DX: M17.11 Unilateral primary osteoarthritis, right knee (principal) | CPT/HCPCS: 20610; 99213; J7318 ==

== ENCOUNTER → 2025-05-24 08:04 | Outpatient (BNVA) | payer MEDICARE, MEDICAID, SELFPAY | PROVIDERS: PCP Internal Medicine; Visit Provider Podiatrist Foot & Ankle Surgery | DX: I73.9 Peripheral vascular disease, unspecified (principal); L60.3 Nail dystrophy | CPT/HCPCS: 11721 ==

== ENCOUNTER → 2025-07-26 07:41 | Outpatient (BNVA) | payer MEDICARE, MEDICAID, SELFPAY | PROVIDERS: PCP Internal Medicine; Visit Provider Podiatrist Foot & Ankle Surgery | DX: I73.9 Peripheral vascular disease, unspecified (principal); L60.3 Nail dystrophy | CPT/HCPCS: 11721 ==

== ENCOUNTER → 2025-09-27 08:33 | Outpatient (BNVA) | payer MEDICARE, MEDICAID, SELFPAY | PROVIDERS: PCP Internal Medicine; Visit Provider Podiatrist Foot & Ankle Surgery | DX: I73.9 Peripheral vascular disease, unspecified (principal); L60.3 Nail dystrophy; L60.8 Other nail disorders | CPT/HCPCS: 11721 ==

== ENCOUNTER → 2025-10-11 13:02 | Outpatient (BNVA) | payer MEDICARE, MEDICAID, SELFPAY | PROVIDERS: PCP Internal Medicine; Visit Provider Student in an Organized Health Care Education/Training Program | DX: M17.11 Unilateral primary osteoarthritis, right knee (principal) | CPT/HCPCS: 20610; 99213; J7318 ==